=== PATIENT | female | born 1965 | race Caucasian/White ===

== ENCOUNTER 2017-05-30 16:11 | Emergency (ER) | payer OTHER, SELFPAY | END 2017-05-30 21:49 | disposition home or self-care (01) | PROVIDERS: Emergency Provider Emergency Medicine; Visit Provider Emergency Medicine | DX: K43.9 Ventral hernia without obstruction or gangrene (principal) | CPT/HCPCS: 74177; 80053; 82150; 83690; 84484; 85025; 96374; 99284; Q9967 ==

== ENCOUNTER → 2018-02-10 07:52 | Outpatient (CLI) | payer OTHER, SELFPAY ==
--- NOTE | 2018-02-10 07:53 | CT_ITS ---
CT abdomen wo con CLINICAL INDICATION: Right-sided abdominal wall hernia ITS.REASON: Abdominal wall hernia ORDERING PHYSICIAN: Glen Levin MD PATIENT AGE: 52 years COMPARISON: 05/30/2017 TECHNIQUE: Axial images obtained with sagittal and coronal reformats. All CT scans at the facility use one or more dose reduction, viz: automated exposure control, ma/kV adjustment per patient size (including targeted exams where dose is matched to indication, i.e. head), or iterative reconstruction technique. PROCEDURE: Oral Contrast: None IV Contrast: None . FINDINGS: 5 mm noncalcified nodule present in the right middle lobe unchanged. The liver, gallbladder, spleen, adrenal glands, pancreas, and kidneys have an unremarkable unenhanced CT appearance. There is a ventral abdominal wall hernia slightly to the right of midline. This is 4.7 cm superior to the umbilicus. The hernia contains fat. The hernia orifice measures 2 cm transverse and 2.4 cm cephalad to caudad. There is some minimal haziness of the fat within the hernia and within the mesenteric fat just deep to the hernia. No bowel evident within the hernia. The hernia sac measures 6.9 cm transverse and 4.2 cm AP and 6.6 cm cephalad to caudad. This is very slightly larger compared to the previous study. There is a tiny umbilical hernia containing fat. No other significant anomalies are evident. IMPRESSION: Right parasagittal ventral abdominal wall hernia as described above containing fat with some minimal edematous change of the fat. No bowel evident within the hernia.
== END ==
PROVIDERS: Family Provider Emergency Medicine; PCP Nurse Practitioner Family; Visit Provider Surgery
DX: K43.9 Ventral hernia without obstruction or gangrene (principal)
CPT/HCPCS: 74150

== ENCOUNTER → 2018-10-11 17:09 | Outpatient (CLI) | payer OTHER, SELFPAY ==
[2018-10-11 17:36] LABS: Basophils # 0.1 K/mm3 (0-0.2); Basophils % 0.6 % (0.1-2.0); Eosinophils # 0.4 K/mm3 (0.0-0.4); Eosinophils % 3.9 % (0.1-12.0); Hematocrit 41.5 % (37.0-47.0); Hemoglobin 13.8 g/dL (12.2-16.2); Lymphocytes % 33.6 % (10-50); Mean Corpuscular HGB Conc 33.3 g/dL (31.8-35.4); Mean Corpuscular Hemoglobin 30.9 pg (27.0-31.2); Mean Corpuscular Volume 92.8 fl (81-99); Mean Platelet Volume 7.9 fl (7.4-10.4); Monocytes # 0.4 K/mm3 (0.1-1.0); Monocytes % 4.4 % (1.7-9.3); Neutrophils # 5.2 K/mm3 (1.8-7.8); Neutrophils % 57.5 % (37.0-80.0); Platelet Count 365 K/mm3 (142-424); Red Blood Count 4.47 M/mm3 (4.20-5.40); Red Cell Distribution Width 13.4 % (11.5-17.5)
[2018-10-11 18:50] LABS: Alanine Aminotransferase 28 U/L (12-78); Albumin Level 3.4 gm/dL (3.4-5.0); Alkaline Phosphatase 63 U/L (46-116); Anion Gap 12.9 mEq/L (5-15); Aspartate Amino Transferase 14 U/L (15-37); Bilirubin,Total 0.4 mg/dL (0.2-1.0); Blood Urea Nitrogen 10 mg/dL (7-18); Calcium 8.5 mg/dL (8.5-10.1); Carbon Dioxide 27 mmol/L (21.0-32.0); Chloride 105 mmol/L (98-107); Chol/HDL Ratio 3.2 (1-3.5); Cholesterol 144 mg/dL (140-200); Creatinine,Serum 0.75 mg/dL (0.55-1.02); Estimated Glomerular Filt Rate 81 ml/min (>60); GFR (African American) 99 ML/MIN (>60); Globulin 3.4 gm/dl (1.3-3.2); Glucose 117 mg/dL (74-106); HDL Cholesterol 45 mg/dL (29-89); LDL Cholesterol 82 mg/dL (0-130); Potassium 3.9 mmoL/L (3.5-5.1); Sodium 141 mmol/L (136-145); Thyroid Stimulating Hormone 3.49 uIU/ml (0.358-3.740); Total Protein,Serum 6.8 gm/dL (6.4-8.2); Triglycerides 85 mg/dL (30-200); VLDL Cholesterol 17 mg/dL (0-40)
[2018-10-12 12:29] LABS: Hemoglobin A1C 5.8 % (0.0-7.0)
[2018-10-13 13:56] LABS: Vitamin D 25 Hydroxy 30.9 ng/mL (30.0-100.0)
== END ==
PROVIDERS: Visit Provider Nurse Practitioner Family
DX: R53.83 Other fatigue (principal); E03.9 Hypothyroidism, unspecified; R73.9 Hyperglycemia, unspecified
CPT/HCPCS: 80053; 80061; 82652; 83036; 84443; 85025

== ENCOUNTER → 2019-12-28 14:24 | Outpatient (CLI) | payer OTHER, SELFPAY ==
[2019-12-28 14:33] LABS: Basophils % 0.3 % (0.1-2.0); Eosinophils # 0.3 K/mm3 (0.0-0.4); Eosinophils % 2.4 % (0.1-12.0); Hematocrit 44.2 % (37.0-47.0); Hemoglobin 14.9 g/dL (12.2-16.2); Lymphocytes # 2.6 K/mm3 (0.7-4.5); Lymphocytes % 23.2 % (10-50); Mean Corpuscular HGB Conc 33.7 g/dL (31.8-35.4); Mean Platelet Volume 8.5 fl (7.4-10.4); Monocytes # 0.5 K/mm3 (0.1-1.0); Monocytes % 4.1 % (1.7-9.3); Neutrophils # 7.8 K/mm3 (1.8-7.8); Platelet Count 331 K/mm3 (142-424); Red Blood Count 4.65 M/mm3 (4.20-5.40); Red Cell Distribution Width 13.5 % (11.5-17.5); White Blood Count 11.2 K/mm3 (4.8-10.8)
[2019-12-28 14:59] LABS: Alanine Aminotransferase 18 U/L (12-78); Albumin/Globulin Ratio 1.1 (1.1-1.8); Alkaline Phosphatase 87 U/L (38-126); Anion Gap 13.6 mEq/L (5-15); Aspartate Amino Transferase 25 U/L (14-36); Bilirubin,Total 0.5 mg/dl (0.2-1.3); Blood Urea Nitrogen 9 mg/dl (7-17); Calcium 9.2 mg/dl (8.4-10.2); Carbon Dioxide 24 mmol/L (22.0-30.0); Chloride 108 mmol/L (98-107); Chol/HDL Ratio 3.5 (1-3.5); Cholesterol 177 mg/dl (140-200); Estimated Glomerular Filt Rate 88 ml/min (>60); GFR (African American) 106 ML/MIN (>60); Globulin 3.5 g/dL (1.3-3.2); Glucose 90 mg/dl (74-100); HDL Cholesterol 50 mg/dl (40-60); Potassium 4.6 mmoL/L (3.5-5.1); Sodium 141 mmol/L (136-145); Total Protein,Serum 7.5 g/dl (6.3-8.2); Triglycerides 138 mg/dl (30-150); VLDL Cholesterol 28 mg/dL (0-40)
[2019-12-28 15:11] LABS: Direct LDL Cholesterol 90.59 mg/dL (100-129)
[2019-12-28 15:16] LABS: T4 (Thyroxine) 8.6 ug/dl (5.53-11.0)
[2019-12-28 15:30] LABS: Thyroid Stimulating Hormone 4.24 uIU/mL (0.465-4.68)
== END ==
PROVIDERS: Visit Provider Nurse Practitioner Family
DX: R53.82 Chronic fatigue, unspecified (principal); M25.50 Pain in unspecified joint; J45.31 Mild persistent asthma with (acute) exacerbation
CPT/HCPCS: 80053; 80061; 82306; 84436; 84443; 85025

== ENCOUNTER → 2020-09-10 15:18 | Outpatient (CLI) | payer OTHER, SELFPAY ==
[2020-09-10 16:30] LABS: Erythrocyte Sedimentation Rate 16 mm/hr (0-30)
[2020-09-10 16:33] LABS: Basophils # 0.1 K/mm3 (0-0.2); Basophils % 0.8 % (0.1-2.0); Eosinophils # 0.3 K/mm3 (0.0-0.4); Eosinophils % 3.9 % (0.1-12.0); Hematocrit 42.1 % (37.0-47.0); Hemoglobin 13.9 g/dL (12.2-16.2); Lymphocytes # 2.8 K/mm3 (0.7-4.5); Lymphocytes % 34.6 % (10-50); Mean Corpuscular Hemoglobin 30.6 pg (27.0-31.2); Mean Corpuscular Volume 92.7 fl (81-99); Monocytes # 0.4 K/mm3 (0.1-1.0); Monocytes % 5.3 % (1.7-9.3); Neutrophils # 4.4 K/mm3 (1.8-7.8); Neutrophils % 55.4 % (37.0-80.0); Platelet Count 281 K/mm3 (142-424); Red Blood Count 4.54 M/mm3 (4.20-5.40); Red Cell Distribution Width 13.7 % (11.5-17.5)
[2020-09-10 17:11] LABS: Chloride 109 mmol/L (98-107); Potassium 4.6 mmoL/L (3.5-5.1); Sodium 139 mmol/L (136-145)
[2020-09-10 17:13] LABS: Alanine Aminotransferase 26 U/L (12-78); Aspartate Amino Transferase 33 U/L (14-36); Blood Urea Nitrogen 17 mg/dl (7-17); Estimated Glomerular Filt Rate 75 ml/min (>60); GFR (African American) 91 ML/MIN (>60)
[2020-09-10 17:14] LABS: Albumin Level 4.2 g/dl (3.5-5.0); Albumin/Globulin Ratio 1.4 (1.1-1.8); Alkaline Phosphatase 76 U/L (38-126); Anion Gap 9.6 mEq/L (5-15); Bilirubin,Total 0.4 mg/dl (0.2-1.3); Calcium 9.4 mg/dl (8.4-10.2); Carbon Dioxide 25 mmol/L (22.0-30.0); Chol/HDL Ratio 3.4 (1-3.5); Cholesterol 188 mg/dl (140-200); Globulin 2.9 g/dL (1.3-3.2); Glucose 102 mg/dl (74-100); HDL Cholesterol 56 mg/dl (40-60); Total Protein,Serum 7.1 g/dl (6.3-8.2); Triglycerides 145 mg/dl (30-150); VLDL Cholesterol 29 mg/dL (0-40)
[2020-09-10 17:25] LABS: Direct LDL Cholesterol 84.86 mg/dL (100-129)
[2020-09-10 17:32] LABS: 25-OH Vitamin D, Total 25.8 ng/mL (30-100); Free T4 (Free Thyroxine) 1.05 ng/dl (0.78-2.19)
[2020-09-10 17:45] LABS: Thyroid Stimulating Hormone 2.83 uIU/mL (0.465-4.68)
== END ==
PROVIDERS: Visit Provider Emergency Medicine
DX: R53.83 Other fatigue (principal); E55.9 Vitamin D deficiency, unspecified; Z79.899 Other long term (current) drug therapy
CPT/HCPCS: 36415; 80053; 80061; 82306; 84439; 84443; 85025; 85651

== ENCOUNTER → 2021-01-09 17:23 | Outpatient (CLI) | payer OTHER, SELFPAY ==
[2021-01-09 19:03] LABS: Basophils # 0.1 K/mm3 (0-0.2); Eosinophils # 0.5 K/mm3 (0.0-0.4); Hematocrit 39.4 % (37.0-47.0); Hemoglobin 12.9 g/dL (12.2-16.2); Lymphocytes # 2.5 K/mm3 (0.7-4.5); Lymphocytes % 32.9 % (10-50); Mean Corpuscular HGB Conc 32.8 g/dL (31.8-35.4); Mean Corpuscular Hemoglobin 29.9 pg (27.0-31.2); Mean Corpuscular Volume 91.1 fl (81-99); Mean Platelet Volume 8.7 fl (7.4-10.4); Monocytes # 0.4 K/mm3 (0.1-1.0); Monocytes % 5.3 % (1.7-9.3); Neutrophils # 4.1 K/mm3 (1.8-7.8); Neutrophils % 54.8 % (37.0-80.0); Platelet Count 334 K/mm3 (142-424); Red Blood Count 4.32 M/mm3 (4.20-5.40); Red Cell Distribution Width 13.9 % (11.5-17.5); White Blood Count 7.5 K/mm3 (4.8-10.8)
[2021-01-09 19:49] LABS: Erythrocyte Sedimentation Rate 29 mm/hr (0-30)
[2021-01-09 20:16] LABS: Hemoglobin A1C 5.7 % (4.0-6.0)
[2021-01-09 20:47] LABS: Alanine Aminotransferase 38 U/L (12-78); Albumin Level 3.9 g/dl (3.5-5.0); Albumin/Globulin Ratio 1.3 (1.1-1.8); Alkaline Phosphatase 76 U/L (38-126); Anion Gap 13.8 mEq/L (5-15); Aspartate Amino Transferase 35 U/L (14-36); Bilirubin,Total 0.5 mg/dl (0.2-1.3); Blood Urea Nitrogen 12 mg/dl (7-17); Calcium 8.6 mg/dl (8.4-10.2); Carbon Dioxide 24 mmol/L (22.0-30.0); Chloride 107 mmol/L (98-107); Estimated Glomerular Filt Rate 88 ml/min (>60); GFR (African American) 106 ML/MIN (>60); Globulin 3.1 g/dL (1.3-3.2); Glucose 83 mg/dl (74-100); Potassium 4.8 mmoL/L (3.5-5.1); Sodium 140 mmol/L (136-145)
[2021-01-09 20:52] LABS: C-Reactive Protein 4.4 mg/L (0-4)
[2021-01-09 21:37] LABS: Vitamin B12 804 pg/mL (239-931)
[2021-01-11 06:19] LABS: HIV Screen 4th Generation wRfx Non Reactive (Non Reactive)
[2021-01-11 09:15] LABS: LH 35.2 mIU/mL (.); Progesterone 0.3 ng/mL (.); RA Latex Turbid. <10.0 IU/mL (0.0-13.9); Testosterone,Total 13 ng/dL (4-50)
[2021-01-11 10:19] LABS: Hep A Ab, IgM Negative (Negative); Hepatitis B Core Antibody IgM Negative (Negative); Hepatitis B Surface Antigen Negative (Negative); Hepatitis C Antibody 0.1 s/co ratio (0.0-0.9)
[2021-01-11 15:13] LABS: Anti-Centromere B Antibodies <0.2 AI (0.0-0.9); Anti-DNA (DS) Ab Qn 1 IU/mL (0-9); Anti-Jo-1 <0.2 AI (0.0-0.9); Anti-Smith Antibody <0.2 AI (0.0-0.9); Antichromatin Antibodies <0.2 AI (0.0-0.9); Antiscleroderma-70 Antibodies <0.2 AI (0.0-0.9); RNP Antibodies <0.2 AI (0.0-0.9); Sjogren's Anti-SS-A <0.2 AI (0.0-0.9); Sjogren's Anti-SS-B <0.2 AI (0.0-0.9)
[2021-01-12 00:08] LABS: Anti-Cyclic Citrullinated Pept 5 units (0-19)
[2021-01-15 16:27] LABS: Estrogen 41 pg/mL (.)
== END ==
PROVIDERS: Visit Provider Physician Assistant
DX: G62.9 Polyneuropathy, unspecified (principal); M25.50 Pain in unspecified joint; R23.2 Flushing; R63.5 Abnormal weight gain; Z11.4 Encounter for screening for human immunodeficiency virus [HIV]; Z68.41 Body mass index [BMI] 40.0-44.9, adult
CPT/HCPCS: 80053; 80074; 82607; 82672; 83001; 83002; 83036; 84144; 84403; 84443; 85025; 85651; 86140; 86200; 86225; 86235; 86431; 86703; G0432

== ENCOUNTER 2021-01-31 18:46 | Observation (INO) | payer OTHER, SELFPAY ==
--- NOTE | 2021-01-31 18:41 | ECG_ITS ---
APPROVED REPORT Exam: Resting ECG HR:70 bpm ECG Measurements Heart Rate 70 AXES KS 158 P 53 QRSd 80 QRS 5 QT 412 T 18 QTc 444 Conclusion Normal sinus rhythm Normal ECG Electronically signed by : Seb Gerardo MD 02/01/2021 18:54:42
[2021-01-31 18:47] VITALS: BP 139/90; PULSE 77; RESP 18; TEMP 37.1; O2SAT 98; BMI 37.2
--- NOTE | 2021-01-31 19:04 | XR_ITS ---
PROCEDURE INFORMATION: Exam: XR Chest Exam date and time: 01/31/2021 7:04 PM Age: 55 years old Clinical indication: Sternal or substernal pain; Patient HX: Chest pain TECHNIQUE: Imaging protocol: XR of the chest. Views: 1 view. COMPARISON: CR CXR CHEST(2 VIEWS-NOT PORTABLE) 02/19/2017 2:37 PM FINDINGS: Lungs: Unremarkable. No consolidation. Pleural spaces: Unremarkable. No pleural effusion. No pneumothorax. Heart/Mediastinum: Unremarkable. No cardiomegaly. Bones/joints: Unremarkable. IMPRESSION: No acute findings.
--- NOTE | 2021-01-31 19:25 | HMH.EDGENADL ---
ED Disposition Clinical Impression: Near syncope Disposition: Admitted as Observation Condition on Discharge: Good Referrals: Gustabo Bowens MD [Primary Care Provider] - Time of Disposition: 19:31 - Critical Care Critical Care Time: No Attestation: On 01/31/21, the high probability of a clinically significant, sudden or life threatening deterioration of the following system(s) required my full and direct attention, intervention and personal management. The time I documented below is in addition to time spent performing reported procedures but includes the following listed in this critical care notation. Medical Decision Making - Medical Records Medical records reviewed: Yes: I reviewed the patient's medical records. - Roque Inquiry Pt receiving controlled substance: No Vital Signs: 01/31/21 18:47 Temperature 98.7 F Temperature Source Oral Pulse Rate [Radial] 77 Respiratory Rate 18 Blood Pressure [Right Arm] 139/90 Blood Pressure Mean [Right Arm] 106 Blood Pressure Position [Right Arm] Sitting 02 Sat by Pulse Oximetry 98 Oxygen Delivery Method Room Air - Lab Data Lab results reviewed: Yes: I reviewed the patient's lab results. Orders (Tests/Meds): ORDERS Category Date Time Status XR chest portable Stat Exams 01/31/21 19:04 Ordered BMP [Basic Metabolic Panel] Stat Lab 01/31/21 19:03 Ordered CBC w/Auto Diff [Complete Blood Count Auto Diff] Stat Lab 01/31/21 19:03 Ordered Troponin I Q3H Lab 01/31/21 22:15 Ordered Troponin I Q3H Lab 02/01/21 01:15 Ordered Troponin I Stat Lab 01/31/21 19:03 Ordered - ECG Data Tracing #1 I reviewed this ECG and interpreted as documented below: Normal sinus rhythm, 70 bpm, no ST elevation or depression, normal intervals, no ectopy. ECG initial impression date: 01/31/21 ECG initial impression time: 18:48 Medical Decision Narrative: 55yo F evaluated for near syncopal episodes. Patient's no acute distress on initial evaluation. Her EKG is unremarkable as reviewed above. Patient's history is concerning given the repetitive nature of her events evaluate the fact that they are worsening and happening more often. She has a strong family history for cardiac disease and also smoked heavily until recently. Laboratory studies are pending at this time but apparently the patient is a difficult stick. Chest x-ray is pending as well. I have already discussed admission with the patient given her symptoms. At this time the patient wishes to be a full code until she can further discuss it with her daughter. General Adult HPI - General Chief complaint: Dizziness Stated complaint: DIZZINESS Time Seen by Provider: 01/31/21 19:00 Mode of Arrival: Ambulatory Limitations: No Limitations Description of Symptoms (Recalled from ER Triage Doc. by RN): TO ED PER PVT CAR WITH C/O INTERMITTENT EPISODES OF DIZZINESS, NAUSEA, STARTING YESTERDAY. CHEST PRESSURE RADIATING INTO BACK, SOB, TODAY. PT STATES CALLED PCP AND TOLD TO COME TO ED FOR EVAL - History of Present Illness HPI narrative: 55yo F presents the emergency department secondary to multiple episodes of what sound like near syncope. Patient reports the symptoms began approximately 2 weeks ago. Patient has a few medical issues and states she does not take her medications as directed. She reports her near syncopal episodes are worsening and becoming more frequent. She states she had 1 earlier today. She reports her heart rate dropped into the 50s. When the event occurs, she is lightheaded, short of breath, diaphoretic and nauseated. She states she typically has headache behind her eyes, left more often than right. After the headache, the near syncopal event will occur 20 minutes to 2 hours later. Denies previous cardiac work-up. Patient reports a history of coronary artery disease in her family. Patient smoked a pack a day for several years until 90 days ago when she quit. - Related Data Home Medications
[2021-01-31 19:49] LABS: Chloride 108 mmol/L (98-107); Sodium 143 mmol/L (136-145)
[2021-01-31 19:50] LABS: Potassium 4.4 mmoL/L (3.5-5.1)
[2021-01-31 19:51] LABS: Basophils # 0.1 K/mm3 (0-0.2); Basophils % 0.8 % (0.1-2.0); Eosinophils # 0.3 K/mm3 (0.0-0.4); Eosinophils % 4.5 % (0.1-12.0); Hematocrit 41.3 % (37.0-47.0); Hemoglobin 13.8 g/dL (12.2-16.2); Lymphocytes # 2.9 K/mm3 (0.7-4.5); Lymphocytes % 41.3 % (10-50); Mean Corpuscular HGB Conc 33.4 g/dL (31.8-35.4); Mean Corpuscular Hemoglobin 31.2 pg (27.0-31.2); Mean Corpuscular Volume 93.6 fl (81-99); Mean Platelet Volume 7.7 fl (7.4-10.4); Monocytes # 0.4 K/mm3 (0.1-1.0); Monocytes % 6.4 % (1.7-9.3); Neutrophils # 3.3 K/mm3 (1.8-7.8); Platelet Count 325 K/mm3 (142-424); Red Blood Count 4.41 M/mm3 (4.20-5.40); Red Cell Distribution Width 13.5 % (11.5-17.5)
[2021-01-31 19:53] LABS: Anion Gap 13.4 mEq/L (5-15); Blood Urea Nitrogen 12 mg/dl (7-17); Calcium 9.3 mg/dl (8.4-10.2); Carbon Dioxide 26 mmol/L (22.0-30.0); Creatinine Clearance Estimated 143 mL/min (50-200); Estimated Glomerular Filt Rate 75 ml/min (>60); GFR (African American) 91 ML/MIN (>60); Glucose 102 mg/dl (74-100)
[2021-01-31 20:16] LABS: Troponin I < 0.01 ng/ml (0.00-0.034)
[2021-01-31 20:24] LABS: Thyroid Stimulating Hormone 4.66 uIU/mL (0.465-4.68)
[2021-01-31 20:25] LABS: Coronavirus 19, PCR Not Detected (NotDetected); Influenza A, PCR Not Detected (NotDetected); Influenza B, PCR Not Detected (NotDetected)
--- NOTE | 2021-01-31 21:04 | PC.NURSE ---
called for bed assignment, spoke with -household chores
--- NOTE | 2021-01-31 21:52 | HMH.HP ---
*Admission Date: 01/31/21 *Chief complaint: chest pain and dizzyness *History of present illness: TO ED PER [facility] CAR WITH C/O INTERMITTENT EPISODES OF DIZZINESS, NAUSEA, STARTING YESTERDAY. CHEST PRESSURE RADIATING INTO BACK, SOB, TODAY. PT STATES CALLED PCP AND TOLD TO COME TO ED FOR EVAL 55yo presents the emergency department secondary to multiple episodes of what sound like near syncope. Patient reports the symptoms began approximately 2 weeks ago. Patient has a few medical issues and states she does not take her medications as directed. She reports her near syncopal episodes are worsening and becoming more frequent. She states she had 1 earlier today. She reports her heart rate dropped into the 50s. When the event occurs, she is lightheaded, short of breath, diaphoretic and nauseated. She states she typically has headache behind her eyes, left more often than right. After the headache, the near syncopal event will occur 20 minutes to 2 hours later. Denies previous cardiac work-up. Patient reports a history of coronary artery disease in her family. Patient smoked a pack a day for several years until 90 days ago when she quit pt with episodes of chest pain and feeling of near syncope and feeling of arrhythmia which has increased in freq and will be admitted for eval [facility] History I have reviewed the patient's past medical history: Yes Medical History: Reports:: Asthma, Cancer, Depression, Hiatal Hernia Denies:: Diabetes Mellitus Type 1, Diabetes Mellitus Type 2, Internal Pacemaker, MRSA, Seizures *Have you ever received a pneumonia vaccine?: No *Have you received a flu vaccine this season?: No Other Medical History: Reports: Arthritis. Denies: Blood Transfusion Reaction Laterality Cases: Bilateral: Tonsillectomy Other Surgeries: Yes: Cancer Surgery, Colonoscopy, , Hysterectomy-Total (Radical hysterectomy), Hysterectomy-Partial. No: Pacemaker Amputation: No Fractures: No - *Social History Smoking Status: Former smoker Tobacco Type: cigarettes # Packs/Day (cigarettes): 1 Alcohol Intake: current Alcohol Intake Frequency:: holidays/special occasions only Substance Use Type: denies use *Occupational Status:: [facility] Household Members: none *Travel in the last 8 weeks: None - Psychiatric History Pschychiatric History:: Reports:: Depression Family Hx:: Heart Attack, Hypertension, Cancer Review of Systems - Review of Systems Review of systems:: pertinent systems reviewed and negative unless documented below - Constitutional Denies fever(s) - ENT Reports dizziness, Denies sore throat - *Cardiovascular Reports chest pain at rest, Reports lightheadedness, Reports rapid, pounding, or irregular heartbeat - *Respiratory Denies cough - *Gastrointestinal Denies abdominal pain - *Genitourinary Denies blood in urine - *Musculoskeletal Denies joint pain - Integumentary/Breasts Denies rash - *Neurologic Denies abnormal speech, Denies seizure-like activity, Denies localized weakness Meds Home Medications Medication Instructions Recorded Confirmed Type EPINEPHrine [Epinephrine] 0.3 mg IM ONCE PRN 10/27/18 01/31/21 History Albuterol Sulfate [Albuterol 2 puff IH Q6H PRN 01/31/21 01/31/21 History Sulfate Hfa] Celecoxib 400 mg PO DAILY 01/31/21 01/31/21 History Cholecalciferol (Vitamin D3) 125 mcg PO DAILY 01/31/21 01/31/21 History [Vitamin D3] Duloxetine HCl [Cymbalta] 60 mg PO DAILY 01/31/21 01/31/21 History Ergocalciferol (Vitamin D2) 50,000 unit PO QWEEK 01/31/21 01/31/21 History [Drisdol] Fluticasone Propionate 1 spray NOSTRIL-B DAILY 01/31/21 01/31/21 History Fluticasone/Vilanterol [Breo 1 inh PO DAILY 01/31/21 01/31/21 History Ellipta 100-25 Mcg INH] Levothyroxine Sodium [Synthroid 25 mcg PO DAILY 01/31/21 01/31/21 History 25mcg (0.025mg) tablet] Loratadine [Allergy Relief] 10 mg PO DAILY 01/31/21 01/31/21 History Montelukast Sodium [Singulair] 10 mg PO H
--- NOTE | 2021-01-31 21:57 | PC.NURSE ---
sent blood to lab
[2021-01-31 22:23] VITALS: BP 106/69; BP 125/75; PULSE 70; PULSE 82; RESP 16; RESP 18; TEMP 36.5; TEMP 36.7; O2SAT 95; O2SAT 98; BMI 41.9
[2021-01-31 22:32] LABS: Troponin I < 0.01 ng/ml (0.00-0.034)
--- NOTE | 2021-01-31 22:32 | PC.NURSE ---
patient up to floor via wheelchair.
[2021-01-31 22:46] VITALS: PULSE 60
[2021-02-01] VITALS (17 sets, daily range): BP systolic 97–133; BP diastolic 50–76; PULSE 50–69; RESP 16–20; TEMP 36.4–36.9; O2SAT 94–100; BMI 26.6; BMI 41.9
--- NOTE | 2021-02-01 | IR_ITS ---
APPROVED REPORT Patient Location: Inpatient PROCEDURES Left heart catheterization Left ventriculogram Selective coronary angiogram INDICATION Unstable angina , Strong family history of coronary disease with numerous associated risk factors, Informed consent was obtained prior to the procedure. COMPLICATIONS NONE Estimated Blood Loss: LESS THAN 10 ML TECHNIQUE One percent lidocaine used to anesthetize the right anterior aspect of the wrist. The right radial artery was accessed via the Seldinger technique. A 6 Albanian sheath was placed in the right radial artery. 2.5 mg of verapamil, 800 mcg of nitroglycerin, 1mg Lidocaine and 5000 U Heparin were given through the arterial sheath. The trap catheter was also used to perform left heart catheterization, left ventriculogram and selective coronary angiogram. At the end of the procedure the sheath was removed good hemostasis was achieved using Traclet band, patient was transferred to the postop holding area in stable condition. ANGIOGRAPHIC RESULTS The left main artery Normal The left anterior descending artery Normal The circumflex artery Normal The right coronary artery Dominant normal The BARAKAT ventriculogram reveals Slightly hyperdynamic at 70% The left ventricular end-diastolic pressure 20 mmHg IMPRESSION Normal coronary arteries Hyperdynamic ventricle consistent with diastolic dysfunction Elevated LVEDP consistent with diastolic dysfunction PLAN 1. Medical management for diastolic dysfunction 2. Evaluation of noncardiac symptoms Electronically signed by : Gopal Garcia MD 02/01/2021 13:43:05
[2021-02-01 02:02] LABS: Troponin I < 0.01 ng/ml (0.00-0.034)
--- NOTE | 2021-02-01 03:31 | PC.NURSE ---
Patient is alert and oriented x4. Patient was a new admission this shift. During home medication reconciliation patient stated that she has not taken her medication in 4 days. Her vital signs are WNL, call light within reach, will continue to monitor.
--- NOTE | 2021-02-01 07:15 | P.CONPHA_ITS ---
[facility] VTE Monitoring - Patient Demographics Admission date: 01/31/21 Report Date: 02/01/21 Time: 07:15 Allergies/Adverse Reactions: Patient Allergies codeine [CODEINE] Allergy (Unknown, Verified 01/09/21 14:39) Height: 1.75 m Weight: 81.647 kg Patient Problems: Current Active Problems Near syncope (Acute) Chest pain (Acute) Obesity (Acute) Hypothyroidism (Chronic) - VTE Risk Labs: VTE Related Lab Results Hgb 13.8 g/dL (12.2-16.2) 01/31/21 19:38 Hct 41.3 % (37.0-47.0) 01/31/21 19:38 Plt Count 325 K/mm3 (142-424) 01/31/21 19:38 BUN 12 mg/dl (7-17) 01/31/21 19:38 Creatinine 0.80 mg/dl (0.52-1.04) 01/31/21 19:38 Estimated Creat Clear 143 mL/min (50-200) 01/31/21 19:38 Was VTE Risk Assessment Performed: Yes VTE Score: 7 VTE Risk Level: Moderate Risk - Prophylaxis VTE Prophylaxis Ordered?: Yes Types of VTE Prophylaxis: IPCS Thigh High, Pharmacological Location of Applied Device: Bilateral Lower Extremeties Pharmacologic Type: Enoxaparin
--- NOTE | 2021-02-01 07:32 | HMH.PHAINT ---
MEDICATION RECONCILIATION COMPLETED ON PATIENT USING EXTERNAL FILL HISTORY FROM PHARMACY AND LIST FROM PCP OFFICE. -ROYER PADROND
--- NOTE | 2021-02-01 07:59 | HMH.CNCARD ---
History of Present Illness Consult date: 02/01/21 Requesting physician: Gustabo Bowens Consult reason: chest pain Chief complaint: chest pain, near syncope Additional Medical History:: 1. Tobacco use of at least 1 pack/day for 30 years 2. Family history of coronary artery disease in her mother who had heart attack in her early 50s 3. Obesity 4. Anxiety/depression 5. Remote history of ulcers History of present illness: 55-year-old white female admitted through the ER for recurrent episodes of near syncope which have been increasing in frequency over the last 3 to 4 weeks. Patient relates symptoms to begin with a headache followed by onset of mild chest discomfort that has been increasing in frequency and intensity. Yesterday the chest discomfort began to radiate to the back associated with severe diaphoresis and nausea. She denies any history of CVA, seizure activity or passing out. No new medications in the last 3 months. She did discontinue smoking approximately 90 days ago but relates that her mother had a strong history of coronary artery disease with her first heart attack in her early 50s. The patient has noted a marked decrease in her exercise capacity over the last 2 to 3 months to the point that she has discontinued a second job due to lack of energy. Patient was admitted for observation with troponins normal x3 and EKG sinus with no acute ST segment changes. Cardiology consulted for evaluation and recommendations. Preliminary echocardiogram today shows preserved ejection fraction with no significant valvular heart disease. Chest x-ray was unremarkable. [facility] History Medical History: Reports:: Asthma, Cancer, Depression, Hiatal Hernia Denies:: Diabetes Mellitus Type 1, Diabetes Mellitus Type 2, Internal Pacemaker, MRSA, Seizures *Have you ever received a pneumonia vaccine?: No *Have you received a flu vaccine this season?: No Other Medical History: Reports: Arthritis. Denies: Blood Transfusion Reaction Laterality Cases: Bilateral: Tonsillectomy Other Surgeries: Yes: Cancer Surgery, Cardiac Surgery, Colonoscopy, , Hernia Repair, Hysterectomy-Total, Hysterectomy-Partial. No: Pacemaker Amputation: No Fractures: No - *Social History Last grade of school completed: Some college Smoking Status: Former smoker Tobacco Type: cigarettes # Packs/Day (cigarettes): 1 #Yrs smoked (if former smoker): 30 Smoking End Date: 10/31/20 Alcohol Intake: current Alcohol Intake Frequency:: holidays/special occasions only Substance Use Type: denies use *Occupational Status:: employed [facility] Household Members: none *Travel in the last 8 weeks: None - Psychiatric History Pschychiatric History:: Reports:: Depression Family Hx:: Asthma, Cancer, Coronary Artery Disease, Heart Attack, Hypertension Meds Home Medications Medication Instructions Recorded Confirmed Type Albuterol Sulfate [Albuterol 2 puff IH Q6HP PRN 01/31/21 02/01/21 History Sulfate Hfa] Cholecalciferol (Vitamin D3) 125 mcg PO DAILY 01/31/21 01/31/21 History [Vitamin D3] Duloxetine HCl [Cymbalta] 60 mg PO DAILY 01/31/21 01/31/21 History Ergocalciferol (Vitamin D2) 50,000 unit PO WEEKLY 01/31/21 02/01/21 History [Drisdol] Fluticasone Propionate 1 spray NOSTRIL-B DAILY 01/31/21 01/31/21 History Fluticasone/Vilanterol [Breo 1 puff IH DAILY 01/31/21 02/01/21 History Ellipta 100-25 Mcg INH] Levothyroxine Sodium [Synthroid 25 mcg PO DAILY 01/31/21 01/31/21 History 25mcg (0.025mg) tablet] Loratadine [Allergy Relief] 10 mg PO DAILYP PRN 01/31/21 02/01/21 History Montelukast Sodium [Singulair] 10 mg PO HS 01/31/21 01/31/21 History Celecoxib [Celebrex 200mg cap] 200 mg PO DAILY 02/01/21 02/01/21 History Phentermine HCl 37.5 mg PO DAILY 02/01/21 02/01/21 History Allergies Allergy/AdvReac Type Severity Reaction Status Date / Time codeine [CODEINE] Allergy Unknown Verified 01/09/21 14:39 Exam Vital signs and Labs for Last 24 H
--- NOTE | 2021-02-01 08:00 | CA_ITS ---
APPROVED REPORT EXAM: Comprehensive 2D, Doppler, and color-flow Echocardiogram Dice Dealer: Roseann Hubbard RVT Ht: 5 ft 9 in Wt: 284lbs BSA: 2.40 BP: 139/90 mmHg Indications: CP,SYNCOPE,EX SMOKER 2D Dimensions LVOT 2.02 cm (M/F) 1.5-2.5 LA Volume 26.40 mL LA Volume Index 11.04 mL/m2 (M/F) 16-34 M-Mode Dimensions RVDd 1.38 cm (0.9-2.6) LA Diam 3.53 cm (1.9-4.0) LVDd 4.59 cm (3.5-5.7) Ao Diam 3.35 cm (2.0-3.7) LVDs 2.75 cm (3.5-5.7) IVSd 1.57 cm (0.6-1.1) PWd 0.73 cm (0.6-1.1) EF (Teich) 70.80% FS 40.10% EDV (Teich) 96.80 mL TAPSE 2.35 (<1.7) ESV (Teich) 28.30 mL LV Diastology E Decel Time 243.00 (160-240 msec) E/A Ratio 0.9 MED E' 6.90 (< 7 cm/sec) E'/MED E' Ratio 10.70 (>14) LAT E' 9.00 (<10 cm/sec) E/LAT E' Ratio 8.20 (>14) Aortic Valve AO Peak GR. 4.40 mmHg Mitral Valve MV E Max Ricardo. 74.00 (40-130 cm/s) MV A Velocity 80.00 (40-130 cm/s) E/A Ratio 0.92 MV Decel. Time 243.00 (160-240 ms) MV PHT 71.00 ms Pulmonary Valve PV Peak Velocity 53.00 (50-150 cm/s) Tricuspid Valve TR P. Velocity 149.00 cm/s RAP Estimate 10.00 mmHg RVSP 18.90 mmHg Left Ventricle Technically difficult study because of the patient fact in poor acoustic windows. Left atrium is mildly enlarged, left ventricle is normal size, visually estimated ejection fraction 50% with no obvious regional wall motion abnormality, Doppler evidence of impaired LV relaxation seen. Endocardial surfaces are poorly visualized. Right Ventricle Right atrium and right ventricle are relatively normal size and function. Aortic Valve Aortic valve is minimally thickened and fibrosed, there is no aortic stenosis or aortic insufficiency. Mitral Valve Mitral valve is grossly normal, there is trace mitral regurgitation. Tricuspid Valve Tricuspid valve grossly normal, there is trace tricuspid regurgitation, tricuspid regurgitation jet velocity is inadequate for calculation of the right ventricular systolic pressure. Pulmonic Valve Pulmonic valve is poorly visualized. Great Vessels Aortic root is normal size. Inferior vena cava is normal size with normal inspiratory collapse. Pericardium No significant pericardial effusion noted. Conclusion 1. Technically difficult study, endocardial surfaces are poorly visualized, visually estimated ejection fraction 50% with no segmental wall motion abnormality, Doppler evidence of impaired LV relaxation. 2. Trace mitral and tricuspid regurgitation. 3. No significant pericardial effusion noted, inferior vena cava is normal size with normal inspiratory collapse. Electronically signed by : Ghassan Hope MD 02/01/2021 18:04:35
--- NOTE | 2021-02-01 10:00 | PC.NURSE ---
Pt sleeping at this time
--- NOTE | 2021-02-01 13:45 | PC.NURSE ---
Report received from Mortgage Loan Specialist RN, Casie
--- NOTE | 2021-02-01 14:05 | PC.NURSE ---
Pt back to the floor from [employer] Guard via stretcher.
--- NOTE | 2021-02-01 15:57 | HMH.DCSUM ---
General - General Admission date:: 01/31/21 Discharge date: 02/01/21 HPI HPI: TO ED PER [facility]T CAR WITH C/O INTERMITTENT EPISODES OF DIZZINESS, NAUSEA, STARTING YESTERDAY. CHEST PRESSURE RADIATING INTO BACK, SOB, TODAY. PT STATES CALLED PCP AND TOLD TO COME TO ED FOR EVAL 55yo presents the emergency department secondary to multiple episodes of what sound like near syncope. Patient reports the symptoms began approximately 2 weeks ago. Patient has a few medical issues and states she does not take her medications as directed. She reports her near syncopal episodes are worsening and becoming more frequent. She states she had 1 earlier today. She reports her heart rate dropped into the 50s. When the event occurs, she is lightheaded, short of breath, diaphoretic and nauseated. She states she typically has headache behind her eyes, left more often than right. After the headache, the near syncopal event will occur 20 minutes to 2 hours later. Denies previous cardiac work-up. Patient reports a history of coronary artery disease in her family. Patient smoked a pack a day for several years until 90 days ago when she quit pt with episodes of chest pain and feeling of near syncope and feeling of arrhythmia which has increased in freq and will be admitted for eval Hospital Course Hospital Course: 55yo presents the emergency department secondary to multiple episodes of what sound like near syncope. Patient reports the symptoms began approximately 2 weeks ago. Patient has a few medical issues and states she does not take her medications as directed. She reports her near syncopal episodes are worsening and becoming more frequent. She states she had 1 earlier today. She reports her heart rate dropped into the 50s. When the event occurs, she is lightheaded, short of breath, diaphoretic and nauseated. She states she typically has headache behind her eyes, left more often than right. After the headache, the near syncopal event will occur 20 minutes to 2 hours later. Denies previous cardiac work-up. Patient reports a history of coronary artery disease in her family. Patient smoked a pack a day for several years until 90 days ago when she quit pt with episodes of chest pain and feeling of near syncope and feeling of arrhythmia which has increased in freq and will be admitted for eval 01/31/21 CXR: FINDINGS: Lungs: Unremarkable. No consolidation. Pleural spaces: Unremarkable. No pleural effusion. No pneumothorax. Heart/Mediastinum: Unremarkable. No cardiomegaly. Bones/joints: Unremarkable. IMPRESSION: No acute findings. Electronically signed by Nathaniel Barrientos MD [facility] shows: ANGIOGRAPHIC RESULTS The left main artery Normal The left anterior descending artery Normal The circumflex artery Normal The right coronary artery Dominant normal The BARAKAT ventriculogram reveals Slightly hyperdynamic at 70% The left ventricular end-diastolic pressure 20 mmHg IMPRESSION Normal coronary arteries Hyperdynamic ventricle consistent with diastolic dysfunction Elevated LVEDP consistent with diastolic dysfunction PLAN 1. Medical management for diastolic dysfunction 2. Evaluation of noncardiac symptoms Electronically signed by : Gopal Garcia MD 02/01/2021 13:43:05 Cardiology has seen and recommends: No evidence of coronary artery disease to account for cause of the patient's chest pain or near syncope. Diastolic dysfunction noted and will add low-dose Aldactone 25 mg Thursday, Thursday and Thursday. BMP in 1 week. Recommend 48-hour Holter monitor at discharge to evaluate for palpitations. Follow-up in our office in 2 weeks or sooner if needed Okay for discharge from cardiology standpoint Consider adding PPI therapy for possible GERD. PLAN: 1. We will discharge home today 2. Aldactone 25 mg p.o. Thursday, Thursday, Thursday 3. Protonix 40 mg p.o. daily 4. Follow-up with PCP in 1 week 5. Follow-up with cardiology in 2 weeks 6.
--- NOTE | 2021-02-01 17:47 | PC.NURSE ---
Pt resting quietly watching tv. Tolerated Cardiac Diet dinner tonight. Awaiting removal of Radial Band pressure device so pt can shower and have Holter Monitor placed and then discharged home tonight. No complaints, no pain. Denies any needs. Vitals have all been stable.
--- NOTE | 2021-02-01 18:30 | PC.NURSE ---
Sheath removed at this time. 2x2 gauze and coban applied to site. Tolerated well.
--- NOTE | 2021-02-01 18:39 | PC.NURSE ---
Air Removal from Radial Band: 1540-4ml 1555-3ml 1610-3ml 1625-3ml 1640-3ml 1655-3ml 1730-3ml 1830-4ml (device removed).
--- NOTE | 2021-02-01 19:05 | PC.NURSE ---
Resp Therapy at bs with Holter Monitor.
--- NOTE | 2021-02-01 19:53 | PC.NURSE ---
PT WAS D/C AT 1951
== END 2021-02-01 19:54 | disposition home or self-care (01) ==
LOC: ER 19:31 → 2ND 22:50
PROVIDERS: Internal Medicine; Admitting Provider Emergency Medicine; Emergency Provider Family Medicine; PCP Emergency Medicine; Visit Provider Emergency Medicine
DX: R07.9 Chest pain, unspecified (principal); R55 Syncope and collapse; E03.9 Hypothyroidism, unspecified; Z20.822 Contact with and (suspected) exposure to COVID-19; Z82.49 Family history of ischemic heart disease and other diseases of the circulatory system; Z79.899 Other long term (current) drug therapy; F17.210 Nicotine dependence, cigarettes, uncomplicated; E66.01 Morbid (severe) obesity due to excess calories; Z68.41 Body mass index [BMI] 40.0-44.9, adult; I20.8 Other forms of angina pectoris
CPT/HCPCS: 36415; 71045; 80048; 84443; 84484; 85025; 93005; 93225; 93306; 93458; 99152; 99282; C1725; C1760; C1769; G0378; J1644; Q9967; U0003

== ENCOUNTER → 2021-05-13 13:28 | Outpatient (CLI) | payer OTHER, SELFPAY | PROVIDERS: Visit Provider Emergency Medicine | DX: Z01.812 Encounter for preprocedural laboratory examination (principal); Z20.822 Contact with and (suspected) exposure to COVID-19 | CPT/HCPCS: C9803; U0003; U0005 ==

== ENCOUNTER → 2021-05-15 09:42 | Outpatient (CLI) | payer OTHER, SELFPAY ==
[2021-05-15 10:36] LABS: Anion Gap 6.9 mEq/L (5-15); Blood Urea Nitrogen 13 mg/dl (7-17); Calcium 9.2 mg/dl (8.4-10.2); Carbon Dioxide 32 mmol/L (22.0-30.0); Chloride 106 mmol/L (98-107); Estimated Glomerular Filt Rate 75 ml/min (>60); GFR (African American) 91 ML/MIN (>60); Glucose 112 mg/dl (74-100); Potassium 4.9 mmoL/L (3.5-5.1); Sodium 140 mmol/L (136-145)
== END ==
PROVIDERS: Visit Provider Nurse Practitioner Family
DX: R06.00 Dyspnea, unspecified (principal); R42 Dizziness and giddiness; E66.01 Morbid (severe) obesity due to excess calories; R94.31 Abnormal electrocardiogram [ECG] [EKG]; Z68.41 Body mass index [BMI] 40.0-44.9, adult
CPT/HCPCS: 36415; 80048

== ENCOUNTER → 2021-05-15 20:11 | Outpatient (CLI) | payer OTHER, SELFPAY | PROVIDERS: PCP Emergency Medicine; Visit Provider Emergency Medicine | DX: G47.30 Sleep apnea, unspecified (principal); R40.0 Somnolence; R06.83 Snoring; E66.9 Obesity, unspecified; Z68.41 Body mass index [BMI] 40.0-44.9, adult | CPT/HCPCS: 95810 ==

== ENCOUNTER 2021-06-18 10:02 | Day surgery (SDC) | payer OTHER, SELFPAY ==
--- NOTE | 2021-06-18 08:41 | CA_ITS ---
FINAL REPORT TECHNIQUE: Color Doppler, duplex Doppler and kong scale sonography of the bilateral neck arterial vasculature was performed. Velocities were measured in the carotid arteries. Stenosis evaluation based on the validated velocity criteria. CLINICAL HISTORY: .Vertigo, dizziness, bilateral bruit FINDINGS: The peak systolic velocity of the right common carotid artery is 88 cm/s. The peak systolic velocity of the right internal carotid artery is 70 cm/s and end diastolic velocity 31 cm/s. No significant plaque is present. The right external carotid artery is patent. The right vertebral artery is patent with antegrade flow. The peak systolic velocity of the left common carotid artery is 135 cm/s. The peak systolic velocity of the left internal carotid artery is 105 cm/s and end diastolic velocity 46 cm/s. No significant plaque is present. The left external carotid artery is patent.The left vertebral artery is patent with antegrade flow. IMPRESSION: Less than 50% bilateral carotid stenoses. Bilateral patent vertebral arteries with antegrade flow. If indicated, CTA or MRA could further evaluate. Reviewed, Interpreted and Dictated by Carlin Nina III, MD Transcribed by Josiah Durant Authenticated by Carlin Nina III, MD on 06/18/2021 09:50:04 AM [facility]
--- NOTE | 2021-06-18 09:21 | MR_ITS ---
FINAL REPORT CLINICAL HISTORY: vertigo WHEN WALKING PATIENTS GETS VERTIGO WITH NAUSEA. FINDINGS: Multiple projection images of the brain arterial vasculature were obtained without contrast. The raw data images were also reviewed. The distal internal carotid, distal vertebral and basilar arteries have an unremarkable appearance without evidence of significant stenosis or occlusion. The proximal anterior, middle and posterior cerebral arteries have an unremarkable appearance. There is no evidence of significant stenosis or major branch occlusion. No aneurysm or vascular malformation is identified. IMPRESSION: Unremarkable MR angiogram of the head. Reviewed, Interpreted and Dictated by Carlin Nina III, MD Transcribed by Josiah Durant Authenticated by Carlin Nina III, MD on 06/18/2021 10:30:47 AM [facility]
--- NOTE | 2021-06-18 09:21 | MR_ITS ---
FINAL REPORT CLINICAL HISTORY: vertigo. WHEN WALKING PATIENTS GETS VERTIGO WITH NAUSEA. PRIOR CAROTID DUPLEX 06-18-21 COMPARISON: Ultrasound carotid from the same day FINDINGS: Multiple projection images of the neck arterial vasculature were obtained without contrast. The raw data images were also reviewed. Motion on many of the images decreases exam sensitivity. The right common carotid artery has an unremarkable appearance without evidence of stenosis or occlusion. The right internal carotid artery has an unremarkable appearance without evidence of stenosis or occlusion. The right external carotid artery is patent. The right vertebral artery is patent without evidence of stenosis. The left common carotid artery has an unremarkable appearance without evidence of stenosis or occlusion. The left internal carotid artery is patent without evidence of stenosis or occlusion. The left external carotid artery is patent. The left vertebral artery is patent without evidence of stenosis. IMPRESSION: No evidence of stenosis or occlusion. Reviewed, Interpreted and Dictated by Carlin Nina III, MD Transcribed by Josiah Durant Authenticated by Carlin Nina III, MD on 06/18/2021 10:30:43 AM [facility]
[2021-06-18 10:39] VITALS: BMI 41.5
[2021-06-18 10:53] VITALS: BP 120/67; PULSE 87; RESP 20; O2SAT 96
[2021-06-18 11:22] VITALS: BP 118/74; PULSE 85; PULSE 87; RESP 19; O2SAT 100
--- NOTE | 2021-06-18 11:27 | HMH.LOOP ---
[facility] Loop Recorder Date: 06/18/21 Time: 11:27 Procedure Performed:: Implantation of loop recorder Indication:: Recurrent syncope Technique:: Patient was brought to the cardiac Sign Wirer. After informed consent obtained, 1% lidocaine with epinephrine was used to anesthetize the site along the left anterior aspect of the chest near the sternal border. Using the preformed scalpel, an incision was made and using the supplied preloaded apparatus, the loop recorder was placed subcutaneously without difficulty. Following the deployment of the loop recorder interrogation of the device was performed to ensure appropriate voltage was being detected (0.1 mV). Once this was verified, Steri-Strips were placed over the incision and the patient was prepped to discharge home. Patient tolerated the procedure well with minimal discomfort. Impression:: Successful implantation of loop recorder Serial Number:: [employer] Lux-[id number] [id number] Serial #[id number] Plan:: Routine postop care
== END 2021-06-18 11:36 | disposition home or self-care (01) ==
PROVIDERS: PCP Emergency Medicine; Visit Provider Internal Medicine
DX: R55 Syncope and collapse (principal); R00.0 Tachycardia, unspecified; R42 Dizziness and giddiness; Z79.899 Other long term (current) drug therapy
CPT/HCPCS: 33285; 70544; 70547; 93880

== ENCOUNTER → 2021-07-03 11:07 | Outpatient (CLI) | payer OTHER, SELFPAY ==
[2021-07-03 11:46] LABS: Basophils # 0.1 K/mm3 (0-0.2); Basophils % 1.1 % (0.1-2.0); Eosinophils # 0.3 K/mm3 (0.0-0.4); Eosinophils % 4.7 % (0.1-12.0); Hematocrit 43.7 % (37.0-47.0); Hemoglobin 13.9 g/dL (12.2-16.2); Lymphocytes # 2.8 K/mm3 (0.7-4.5); Lymphocytes % 50.4 % (10-50); Mean Corpuscular HGB Conc 31.9 g/dL (31.8-35.4); Mean Corpuscular Hemoglobin 29.9 pg (27.0-31.2); Mean Corpuscular Volume 93.8 fl (81-99); Mean Platelet Volume 7.2 fl (7.4-10.4); Monocytes # 0.3 K/mm3 (0.1-1.0); Monocytes % 5.3 % (1.7-9.3); Neutrophils # 2.1 K/mm3 (1.8-7.8); Neutrophils % 38.6 % (37.0-80.0); Platelet Count 333 K/mm3 (142-424); Red Blood Count 4.66 M/mm3 (4.20-5.40); Red Cell Distribution Width 14.7 % (11.5-17.5); White Blood Count 5.5 K/mm3 (4.8-10.8)
[2021-07-03 12:00] LABS: MANUAL DIFFERENTIAL MANUAL DIFFERENTIAL (MANUAL DIFF)
[2021-07-03 12:31] LABS: Alanine Aminotransferase 56 U/L (12-78); Albumin Level 4.2 g/dl (3.5-5.0); Alkaline Phosphatase 70 U/L (38-126); Anion Gap 8.1 mEq/L (5-15); Aspartate Amino Transferase 45 U/L (14-36); Bilirubin,Indirect 0.5 mg/dL (0.0-0.9); Bilirubin,Total 0.5 mg/dl (0.2-1.3); Bilirubin,Unconjugated 0.5 mg/dL (0.0-1.1); Blood Urea Nitrogen 15 mg/dl (7-17); Calcium 9.5 mg/dl (8.4-10.2); Carbon Dioxide 31 mmol/L (22.0-30.0); Chloride 107 mmol/L (98-107); Chol/HDL Ratio 4.1 (1-3.5); Cholesterol 213 mg/dl (140-200); Estimated Glomerular Filt Rate 65 ml/min (>60); GFR (African American) 79 ML/MIN (>60); Glucose 112 mg/dl (74-100); HDL Cholesterol 52 mg/dl (40-60); Potassium 5.1 mmoL/L (3.5-5.1); Sodium 141 mmol/L (136-145); Total Protein,Serum 7.4 g/dl (6.3-8.2); Triglycerides 162 mg/dl (30-150); VLDL Cholesterol 32 mg/dL (0-40)
[2021-07-03 12:44] LABS: Direct LDL Cholesterol 101.66 mg/dL (100-129)
[2021-07-03 12:47] LABS: Free Thyroxine Index 2.3 ug/dL (5.93-13.13); T4 (Thyroxine) 8.6 ug/dl (5.53-11.0); Triiodothryronine (T3) Uptake 27 % (23.5-40.5)
[2021-07-03 13:01] LABS: Thyroid Stimulating Hormone 4.91 uIU/mL (0.465-4.68)
[2021-07-03 19:26] LABS: Eosinophils % 2 % (0-3); Lymphocytes % 42 % (10-50); Monocytes % 8 % (2-9); Neutrophils % 48 % (42-76); Platelet Estimate Normal; Total Cells Counted 100
[2021-07-04 08:23] LABS: FSH 54.2 mIU/mL (.); Progesterone 0.2 ng/mL (.)
[2021-07-06 19:08] LABS: Estrogen 48 pg/mL (.)
== END ==
PROVIDERS: PCP Emergency Medicine; Visit Provider Physician Assistant
DX: R42 Dizziness and giddiness (principal); I10 Essential (primary) hypertension; R94.30 Abnormal result of cardiovascular function study, unspecified; E78.5 Hyperlipidemia, unspecified; E03.9 Hypothyroidism, unspecified; R53.83 Other fatigue; Z79.899 Other long term (current) drug therapy
CPT/HCPCS: 36415; 80048; 80061; 80076; 82672; 83001; 83002; 84144; 84436; 84443; 84479; 85007; 85025

== ENCOUNTER 2021-10-29 12:02 | Emergency (ER) | payer OTHER, SELFPAY ==
[2021-10-29 12:08] VITALS: BP 133/85; PULSE 78; RESP 18; TEMP 36.8; O2SAT 97; BMI 44.3
[2021-10-29 12:40] VITALS: BP 133/85; PULSE 78; RESP 18; TEMP 36.8; O2SAT 97; BMI 44.4
--- NOTE | 2021-10-29 13:13 | HMH.EDUTC ---
[facility] [place] Clinical Impression: Nerve pain Disposition: Home, Self-Care Condition on Discharge: Good Instructions: Neuropathic Pain, Methylprednisolone Additional Instructions: Continue wearing brace on hand/wrist Take medrol pack as prescribed Make appointment with your Family Doctor for further evaluation and treatment Return if needed Straight to ER if any life threatening symptoms Prescriptions: methylPREDNISolone [Medrol 4mg tab] 4 mg PO DIRECTED #21 tab Transmission Status: Received by [facility] Referrals: Gustabo Bowens MD [Primary Care Provider] - As needed Forms: Work/School Release Medical Decision Making - Roque Inquiry Pt receiving controlled substance: No Roque was queried for this patient: No Vital Signs: 10/29/21 12:08 10/29/21 12:40 10/29/21 13:22 Temperature 98.2 F 98.2 F 98.2 F Temperature Source Oral Oral Pulse Rate 78 Pulse Rate [Radial] 78 78 Respiratory Rate 18 18 18 Blood Pressure 133/85 Blood Pressure [Right Arm] 133/85 133/85 Blood Pressure Mean [Right Arm] 101 101 Blood Pressure Source [Right Arm] Automatic Cuff Blood Pressure Position [Right Arm] Sitting 02 Sat by Pulse Oximetry 97 97 Oxygen Delivery Method Room Air [facility] [place] - General Stated complaint: shoulder, hand, arm pain Time Seen by Provider: 10/29/21 12:30 Mode of Arrival: Ambulatory Source of Information: Patient Limitations: No Limitations Description of Symptoms (Recalled from Triage Doc. by RN): C/O LEFT ARM PAIN THAT RADIATES INTO HER HAND AND THUMB AND IS WORSE WHEN SHE MOVES HER ARM UP AND DOWN, STATES THE PAIN HAS BEEN GOING ON FOR A YEAR. DENIES CHEST PAIN. HEENT Symptoms (Recalled from RN notes): No Resp Symptoms (Recalled from RN notes): No Skin Symptoms (Recalled from RN notes): No MS Symptoms (Recalled from RN notes): Yes Functional Status (Recalled from RN notes): WNL - History of Present Illness Provider Complaint: Patient states that she has been havin pain in her left shoulder, upper arm and thumb for about a year States that pain/tingling worse when she raises her arm up and down States that she does alot of pulling and tugging at work and not sure if she may have tendonitis or something Denies fever, denies chest pain - Related Data Previous Rx's Medication Instructions Recorded spironolactone 25 mg tablet 25 mg PO DAILY #30 tab 05/15/21 albuterol sulfate 90 mcg/actuation 2 puff INHALATION Q6HP PRN #8.5 g 05/17/21 aerosol inhaler cholecalciferol (vitamin D3) 125 125 mcg PO DAILY #90 cap 05/17/21 mcg (5,000 unit) capsule ergocalciferol (vitamin D2) 1,250 50,000 unit PO WEEKLY #12 cap 05/17/21 mcg (50,000 unit) capsule celecoxib 200 mg capsule See Rx Instructions .ROUTE 06/13/21 .COMPLEX #60 capsule estradiol 0.1 mg/24 hr weekly 1 patch TRANSDERMA WEEKLY #4 each 07/29/21 transdermal patch levothyroxine 50 mcg capsule 50 mcg PO DAILY #90 cap 08/08/21 bupropion HCl 75 mg tablet See Rx Instructions .ROUTE 08/19/21 .COMPLEX #60 tab fluticasone propionate 50 See Rx Instructions .ROUTE 08/19/21 mcg/actuation nasal .COMPLEX #16 g spray,suspension duloxetine 60 mg capsule,delayed See Rx Instructions .ROUTE 09/17/21 release .COMPLEX #30 cap loratadine 10 mg tablet See Rx Instructions .ROUTE 09/17/21 .COMPLEX #30 tab metformin 500 mg tablet See Rx Instructions .ROUTE 09/17/21 .COMPLEX #60 tab epinephrine 0.3 mg/0.3 mL 0.3 mg IM Q5-15M PRN #2 each 09/24/21 injection, auto-injector hydroxyzine HCl 25 mg tablet 25 mg PO Q6H #20 tab 09/24/21 montelukast 10 mg tablet See Rx Instructions .ROUTE 10/21/21 .COMPLEX #30 tab methylPREDNISolone [Medrol 4mg 4 mg PO DIRECTED #21 tab 10/29/21 tab] Allergies Allergy/AdvReac Type Severity Reaction Status Date / Time codeine [CODEINE] Allergy Unknown Verified 07/29/21 09:12 - Worker's Comp Is this a Worker's Comp case?: No [facility] History - Hepatitis A Screen Attesta
[2021-10-29 13:22] VITALS: BP 133/85; PULSE 78; RESP 18; TEMP 36.8; O2SAT 97
== END 2021-10-29 13:28 | disposition home or self-care (01) ==
LOC: ER 12:08 → UTC 12:08
PROVIDERS: Emergency Provider Nurse Practitioner; PCP Emergency Medicine
DX: M79.2 Neuralgia and neuritis, unspecified; Z88.6 Allergy status to analgesic agent; E11.9 Type 2 diabetes mellitus without complications; J45.909 Unspecified asthma, uncomplicated
CPT/HCPCS: 99212; G0463

== ENCOUNTER → 2022-02-13 10:19 | Outpatient (CLI) | payer OTHER, SELFPAY ==
--- NOTE | 2022-02-13 10:19 | MM_ITS ---
PROCEDURE INFORMATION: Exam: US Left Breast, Complete MG Bilateral Diagnostic Breast Tomosynthesis Exam date and time: 02/13/2022 11:02 AM Age: 56 years old Clinical indication: Left breast palpable lump TECHNIQUE: Imaging protocol: Complete ultrasound of all four quadrants of the Left breast and the retroareolar regions, including ultrasound of the axilla when performed. Bilateral Diagnostic tomosynthesis and 2D mammography including computer-aided detection (CAD) when performed. Unilateral or bilateral exam. COMPARISON: MG MM DIG MAMM BI DX W/CAD 02/13/2022 10:15 AM FINDINGS: MAMMOGRAPHY: The breasts are heterogeneously dense, which may obscure small masses. Palpable abnormality in the left breast corresponds to a stellate mass measuring approximately 4.1 x 3.3 cm in the middle third of the upper outer quadrant. Few calcifications appear to be within the mass. There is associated architectural distortion present. Four dense abnormal left axillary lymph nodes are identified. The largest lymph node measures 2.7 cm. No suspicious findings in the right breast. ULTRASOUND: Sonographic images of the left breast including the retroareolar region, all 4 quadrants and the axilla demonstrates a broad area of abnormal acoustical shadowing in the 2 o'clock axis 6 cm from the nipple measuring 5 1 x 3.6 x 4.2 cm in dimension. Is difficult to identify the exact measurements of the underlying mass due to the acoustical shadowing and architectural distortion present. 0.4 cm cyst in the left lower outer quadrant. Evaluation of the left axilla demonstrates 2 abnormal lymph nodes, the larger of which measures 2.9 cm. . No architectural distortion or acoustical shadowing. No skin thickening or axillary adenopathy. IMPRESSION: Findings highly suggestive of primary breast carcinoma in the left upper outer quadrant with metastatic ipsilateral axillary adenopathy. Ultrasound-guided core biopsy of the palpable mass and ultrasound-guided fine needle aspiration of the dominant left axillary lymph node are recommended for further evaluation. No suspicious findings in the right breast ASSESSMENT: BI-RADS Category 5: Highly suggestive of malignancy
== END ==
PROVIDERS: PCP Emergency Medicine; Visit Provider Obstetrics & Gynecology
DX: N63.20 Unspecified lump in the left breast, unspecified quadrant (principal)
CPT/HCPCS: 76641; 77062; 77066; G0279

== ENCOUNTER → 2022-02-25 08:20 | Outpatient (CLI) | payer OTHER, SELFPAY ==
--- NOTE | 2022-02-25 | US_ITS ---
FINAL REPORT CLINICAL HISTORY: Left breast mass FINDINGS: ULTRASOUND-GUIDED LEFT BREAST CORE BIOPSY TECHNIQUE: Limited images were obtained to localize region of interest. The left breast was prepped in a routine sterile fashion and locally anesthetized with 1% lidocaine. Standard written informed consent was obtained. The biopsy needle was positioned within the outer periphery of the lesion. A total of 4 passes were made with a 18 gauge core biopsy needle. A biopsy marker clip was deployed in satisfactory position. Postbiopsy mammogram showed postbiopsy changes with clip in satisfactory position. Procedure was well tolerated . CONCLUSION: 1. Technically successful ultrasound guided core biopsy of left breast lesion as above. 2. 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 Pathology results are concordant with imaging findings. Authenticated and [facility]
--- NOTE | 2022-02-25 | US_ITS ---
FINAL REPORT CLINICAL HISTORY: .Dr. Arita -- Left axilla node core biopsy FINDINGS: ULTRASOUND-GUIDED LEFT AXILLARY LYMPH NODE CORE BIOPSY TECHNIQUE: Limited images were obtained to localize region of interest. The left axilla was prepped in a routine sterile fashion and locally anesthetized with 1% lidocaine. Standard written informed consent was obtained. The biopsy needle was positioned within the outer periphery of the lesion. A total of 3 passes were made with a 18 gauge core biopsy needle. Procedure was well tolerated . CONCLUSION: 1. Technically successful ultrasound guided core biopsy of left axillary lymph node Histopathology reveals findings of metastatic poorly differentiated adenocarcinoma. This is concordant with imaging findings given adenocarcinoma demonstrated on breast biopsy as well. Authenticated and [facility]
--- NOTE | 2022-02-25 09:38 | MM_ITS ---
FINAL REPORT CLINICAL HISTORY: clip placement, post biopsy FINDINGS: MAMMOGRAM LEFT TECHNIQUE: Standard digital 2-D views COMPARISON: 02-13-22 DENSITY: There are scattered areas of fibroglandular density FINDINGS: Post biopsy marker clip is noted to be in satisfactory position within the superior lateral periphery of the mass. Postbiopsy changes are noted. IMPRESSION: Biopsy marker clip in the superior lateral periphery of the mass RECOMMENDATION: Surgical consultation given findings of invasive poorly differentiated ductal carcinoma Authenticated and [facility]
== END ==
PROVIDERS: PCP Emergency Medicine; Visit Provider Obstetrics & Gynecology
DX: N63.21 Unspecified lump in the left breast, upper outer quadrant (principal); N63.32 Unspecified lump in axillary tail of the left breast
CPT/HCPCS: 10005; 19083; 76641; 77065

== ENCOUNTER → 2022-03-14 09:05 | Outpatient (CLI) | payer OTHER, SELFPAY ==
[2022-03-14 10:02] LABS: Basophils % 0.7 % (0.1-2.0); Eosinophils # 0.2 K/mm3 (0.0-0.4); Eosinophils % 3.9 % (0.1-12.0); Hematocrit 42.1 % (37.0-47.0); Hemoglobin 13.4 g/dL (12.2-16.2); Lymphocytes # 2.6 K/mm3 (0.7-4.5); Lymphocytes % 42.2 % (10-50); Mean Corpuscular HGB Conc 31.9 g/dL (31.8-35.4); Mean Corpuscular Hemoglobin 30.1 pg (27.0-31.2); Mean Corpuscular Volume 94.4 fl (81-99); Mean Platelet Volume 7.4 fl (7.4-10.4); Monocytes # 0.4 K/mm3 (0.1-1.0); Monocytes % 5.9 % (1.7-9.3); Neutrophils # 2.9 K/mm3 (1.8-7.8); Neutrophils % 47.2 % (37.0-80.0); Platelet Count 303 K/mm3 (142-424); Red Blood Count 4.46 M/mm3 (4.20-5.40); Red Cell Distribution Width 12.9 % (11.5-17.5); White Blood Count 6.1 K/mm3 (4.8-10.8)
[2022-03-14 10:16] LABS: Chloride 104 mmol/L (98-107); Potassium 4.6 mmoL/L (3.5-5.1); Sodium 141 mmol/L (136-145)
[2022-03-14 10:18] LABS: Blood Urea Nitrogen 14 mg/dl (7-17); Estimated Glomerular Filt Rate 75 ml/min (>60); GFR (African American) 90 ML/MIN (>60)
[2022-03-14 10:19] LABS: Alanine Aminotransferase 22 U/L (12-78); Albumin Level 4.1 g/dl (3.5-5.0); Albumin/Globulin Ratio 1.4 (1.1-1.8); Alkaline Phosphatase 77 U/L (38-126); Anion Gap 13.6 mEq/L (5-15); Aspartate Amino Transferase 30 U/L (14-36); Calcium 8.9 mg/dl (8.4-10.2); Carbon Dioxide 28 mmol/L (22.0-30.0); Globulin 2.9 g/dL (1.3-3.2); Glucose 118 mg/dl (74-100)
[2022-03-14 10:22] LABS: Bilirubin,Total 0.1 mg/dl (0.2-1.3)
[2022-03-15 08:14] LABS: Estradiol 28.7 pg/mL (.); LH 39.3 mIU/mL (.)
[2022-03-15 09:17] LABS: FSH 54.6 mIU/mL (.)
== END ==
PROVIDERS: PCP Emergency Medicine; Visit Provider Internal Medicine Hematology & Oncology
DX: C50.419 Malignant neoplasm of upper-outer quadrant of unspecified female breast (principal)
CPT/HCPCS: 36415; 80053; 82670; 83001; 83002; 85025

== ENCOUNTER → 2022-03-17 09:20 | Outpatient (CLI) | payer OTHER, SELFPAY ==
--- NOTE | 2022-03-17 09:24 | CT_ITS ---
FINAL REPORT CLINICAL HISTORY: MALIGNANT NEOPLASM UPPER OUTER QUAD OF BREAST. dx with breast cancer 3 weeks ago. hx of cervical FINDINGS: Axial CT images of the chest were obtained with contrast. Coronal reformatted images were also obtained. This study was performed with techniques to keep radiation doses as low as reasonably achievable, (ALARA). Individualized dose reduction techniques using automated exposure control or adjustment of mA and/or KV according to the patient's size were employed. 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 There is no evidence of mediastinal or hilar mass or adenopathy. There is asymmetric soft tissue in the left breast worrisome for a mass. There are several large left axillary nodes worrisome for metastatic adenopathy. There are several less than 5 mm bilateral pulmonary nodules which are nonspecific. IMPRESSION: Asymmetric soft tissue in the left breast worrisome for a mass with several large left axillary nodes worrisome for metastatic adenopathy. Several less than 5 mm bilateral pulmonary nodules, nonspecific. Follow-up chest CT in 6 months is recommended. Reviewed, Interpreted and Dictated by Carlin Nina III, MD Transcribed by Fatmata Tran Authenticated and . [facility]
--- NOTE | 2022-03-17 09:24 | CT_ITS ---
FINAL REPORT CLINICAL HISTORY: recent breast cancer dx. new find in lymph nodes per patient. hx of cervical cancer. COMPARISON: 03/17/2019 FINDINGS: CT OF THE ABDOMEN AND PELVIS WITH CONTRAST Axial CT images of the abdomen and pelvis were obtained after the administration of oral and iv contrast. Coronal reformatted images were also obtained and reviewed.This study was performed with techniques to keep radiation doses as low as reasonably achievable (ALARA). Individualized dose reduction techniques using automated exposure control or adjustment of mA and/or kV according to the patient's size were employed. Abdomen: The liver has an unremarkable appearance, without evidence of mass or biliary ductal dilatation. The spleen is unremarkable. No adrenal mass is present. The pancreas has an unremarkable appearance. The kidneys are normal, without evidence of mass or hydronephrosis. The aorta is normal in caliber. There is no free fluid or adenopathy. No mass or abnormal fluid collection is seen. Pelvis: The appendix is normal. The patient is status post hysterectomy. The urinary bladder is unremarkable. No inflammatory process is seen. There is no evidence of mass or adenopathy. There is no evidence of bowel obstruction. IMPRESSION: No evidence of acute intra-abdominal process. Reviewed, Interpreted and Dictated by Carlin Nina III, MD Transcribed by Fatmata Tran Authenticated and [facility]
== END ==
PROVIDERS: PCP Emergency Medicine; Visit Provider Internal Medicine Hematology & Oncology
DX: C50.412 Malignant neoplasm of upper-outer quadrant of left female breast (principal); Z17.0 Estrogen receptor positive status [ER+]
CPT/HCPCS: 71260; 74177; Q9967

== ENCOUNTER → 2022-03-19 08:03 | Outpatient (CLI) | payer OTHER, SELFPAY ==
--- NOTE | 2022-03-19 | CA_ITS ---
APPROVED REPORT EXAM: Comprehensive 2D, Doppler, and color-flow Echocardiogram Top Tile Decorator: Susy Camacho, RCS, RVS Ht: 5 ft 9 in Wt: 291lbs BSA: 2.42 BP: 125/85 mmHg Indications: HTN, Diastolic dysfunction, Hx- Loop recoeder for near syncopal episodes, Breast Cancer- Upcoming Chemotherapy, Obesity 2D Dimensions Aortic Root 3.33 cm LA Volume 34.40 mL Left Atrium 3.35 cm LA Volume Index 14.20 mL/m2 (M/F) 16-34 LVOT 1.99 cm (M/F) 1.5-2.5 M-Mode Dimensions RVDd 3.10 cm (0.9-2.6) LA Diam 3.71 cm (1.9-4.0) LVDd 5.07 cm (3.5-5.7) Ao Diam 3.13 cm (2.0-3.7) LVDs 3.22 cm (3.5-5.7) IVSd 1.17 cm (0.6-1.1) PWd 1.09 cm (0.6-1.1) EF (Teich) 65.90% EPSs 0.48 cm FS 36.50% EDV (Teich) 122.10 mL TAPSE 1.70 (<1.7) ESV (Teich) 41.60 mL LV Diastology E Decel Time 227.00 (160-240 msec) E/A Ratio 0.80 MED E' 5.00 (< 7 cm/sec) MED A' 8.60 cm/s E'/MED E' Ratio 11.04 (>14) LAT E' 6.80 (<10 cm/sec) LAT A' 7.70 cm/s E/LAT E' Ratio 8.12 (>14) Aortic Valve LVOT Max 94.00 (70-110 cm/s) LVOT VTI 19.02 cm AoV Peak Ricardo. 105.00 (50-130 cm/s) AO Peak GR. 4.40 mmHg AO Mean GR. 2.20 (<5 mmHg) AO VTI 20.79 (18-25 cm) RADHA (VTI) 2.85 (2.5-4.5 cm2) Mitral Valve MV A Velocity 69.00 (40-130 cm/s) E/A Ratio 0.80 MV Decel. Time 227.00 (160-240 ms) MV Mean Gr. 0.90 (<2mmHg) MV PHT 67.00 ms Pulmonary Valve PV Peak Velocity 77.00 (50-150 cm/s) Tricuspid Valve TR P. Velocity 197.00 cm/s Left Ventricle Left atrium is mildly enlarged, left ventricle is normal size mild concentric left ventricular hypertrophy, estimated ejection fraction 55% with no regional wall motion abnormality, grade 1 diastolic dysfunction seen without tissue Doppler evidence of raise left atrial pressure. Right Ventricle Right atrium and right ventricle are mildly enlarged with normal contractility. Aortic Valve Aortic valve is minimally thickened and fibrosed there is no aortic stenosis aortic insufficiency. Mitral Valve Mitral valve is grossly normal. There is trace mitral regurgitation. Tricuspid Valve Tricuspid valve grossly normal, there is trace tricuspid regurgitation, tricuspid regurgitation jet velocity is inadequate for calculation of the right ventricular systolic pressure. Pulmonic Valve Pulmonic valve is poorly visualized. Great Vessels Aortic root is normal size. Inferior vena cava is normal size with normal inspiratory collapse. Pericardium No significant pericardial effusion noted. Conclusion 1. Mild biatrial enlargement, normal left ventricular size, mild concentric left ventricular hypertrophy, estimated ejection fraction 55% with no regional wall motion abnormality, grade 1 diastolic dysfunction seen without tissue Doppler evidence of raise left atrial pressure. 2. Mildly enlarged right ventricle with normal contractility. 3. Trace mitral and tricuspid regurgitation. 4. No significant pericardial effusion noted. 5. Inferior vena cava is normal size with normal inspiratory collapse Electronically signed by : Ghassan Hope MD 03/20/2022 06:30:13
--- NOTE | 2022-03-19 08:13 | MR_ITS ---
FINAL REPORT CLINICAL HISTORY: PRIMARY MALIGNANT NEOPLASM OF BREAST, recent diagnosis of breast cancer, headaches 26ml prohance injected FINDINGS: Multiplanar MR imaging of the brain was performed without and with contrast. There is no evidence of intracranial hemorrhage or mass. No abnormal extra-axial fluid collection is seen. The ventricular size is within normal limits. There is no evidence of shift of the midline structures. The posterior fossa and brainstem have an unremarkable appearance. No area of abnormal restricted diffusion is identified. No abnormal contrast enhancement is seen. Normal major vessel vascular flow voids are noted. There is mucosal thickening in the sinuses. IMPRESSION: No acute intracranial abnormality identified. Reviewed, Interpreted and Dictated by Carlin Nina III, MD Transcribed by Josiah Durant Authenticated and [facility][1]
== END ==
PROVIDERS: PCP Emergency Medicine; Visit Provider Internal Medicine Hematology & Oncology
DX: C50.412 Malignant neoplasm of upper-outer quadrant of left female breast (principal)
CPT/HCPCS: 70553; 93306; A9576

== ENCOUNTER → 2022-03-21 09:40 | Outpatient (CLI) | payer OTHER, SELFPAY ==
--- NOTE | 2022-03-21 09:48 | NM_ITS ---
FINAL REPORT CLINICAL HISTORY: DISORDERS OF BONE, H/O CERVICLE CANCER 2012 COMPARISON: CT of the chest, abdomen, and pelvis dated March 17 FINDINGS: Multiple projection images of the axial and appendicular skeleton were obtained after the intravenous injection of 25.3 mCi technetium 99m MDP. The correlation was made with the CT of the chest, abdomen, and pelvis from March 2022. There is increased tracer activity in the shoulders, knees, and ankles consistent with degenerative change. There are foci of increased tracer activity in the cervical and thoracic spine favored to represent degenerative change. No other abnormality is identified. IMPRESSION: Scattered foci of increased tracer activity favored to represent degenerative change. No convincing evidence of metastatic disease. Reviewed, Interpreted and Dictated by Carlin Nina III, MD Transcribed by Miranda Grant Authenticated and [facility]
== END ==
PROVIDERS: PCP Emergency Medicine; Visit Provider Internal Medicine Hematology & Oncology
DX: M89.8X9 Other specified disorders of bone, unspecified site (principal)
CPT/HCPCS: 78306; A9503

== ENCOUNTER 2022-04-01 09:06 | Outpatient (CLI) | payer OTHER, SELFPAY ==
[2022-04-01 09:15] VITALS: BMI 43.0
[2022-04-01 09:37] LABS: Basophils % 0.8 % (0.1-2.0); Eosinophils # 0.2 K/mm3 (0.0-0.4); Eosinophils % 3.1 % (0.1-12.0); Hematocrit 39.1 % (37.0-47.0); Hemoglobin 13.1 g/dL (12.2-16.2); Lymphocytes # 1.2 K/mm3 (0.7-4.5); Lymphocytes % 24.8 % (10-50); Mean Corpuscular HGB Conc 33.6 g/dL (31.8-35.4); Mean Corpuscular Hemoglobin 31.2 pg (27.0-31.2); Mean Corpuscular Volume 92.8 fl (81-99); Mean Platelet Volume 7.9 fl (7.4-10.4); Monocytes # 0.1 K/mm3 (0.1-1.0); Monocytes % 1.3 % (1.7-9.3); Neutrophils # 3.5 K/mm3 (1.8-7.8); Platelet Count 231 K/mm3 (142-424); Red Blood Count 4.22 M/mm3 (4.20-5.40); Red Cell Distribution Width 13.3 % (11.5-17.5)
[2022-04-01 09:40] LABS: Chloride 103 mmol/L (98-107); Potassium 3.9 mmoL/L (3.5-5.1); Sodium 141 mmol/L (136-145)
[2022-04-01 09:42] LABS: Alanine Aminotransferase 29 U/L (12-78); Aspartate Amino Transferase 30 U/L (14-36); Bilirubin,Total 0.9 mg/dl (0.2-1.3); Blood Urea Nitrogen 14 mg/dl (7-17); Creatinine Clearance Estimated 84 mL/min (50-200); Estimated Glomerular Filt Rate 75 ml/min (>60); GFR (African American) 90 ML/MIN (>60)
[2022-04-01 09:43] LABS: Albumin Level 3.9 g/dl (3.5-5.0); Albumin/Globulin Ratio 1.3 (1.1-1.8); Alkaline Phosphatase 103 U/L (38-126); Anion Gap 13.9 mEq/L (5-15); Calcium 8.4 mg/dl (8.4-10.2); Carbon Dioxide 28 mmol/L (22.0-30.0); Glucose 100 mg/dl (74-100); Total Protein,Serum 6.9 g/dl (6.3-8.2)
== END 2022-04-01 09:20 | disposition home or self-care (01) ==
LOC: INF 09:07
PROVIDERS: PCP Emergency Medicine; Visit Provider Internal Medicine Hematology & Oncology
DX: C50.412 Malignant neoplasm of upper-outer quadrant of left female breast (principal); Z45.2 Encounter for adjustment and management of vascular access device
CPT/HCPCS: 36591; 80053; 85025; J1642

== ENCOUNTER 2022-04-09 13:49 | Outpatient (CLI) | payer OTHER, SELFPAY ==
[2022-04-09 13:55] VITALS: BMI 43.1
[2022-04-09 14:30] LABS: Chloride 106 mmol/L (98-107); Sodium 140 mmol/L (136-145)
[2022-04-09 14:32] LABS: Blood Urea Nitrogen 18 mg/dl (7-17); Creatinine Clearance Estimated 96 mL/min (50-200); Estimated Glomerular Filt Rate 87 ml/min (>60); GFR (African American) 106 ML/MIN (>60)
[2022-04-09 14:33] LABS: Alanine Aminotransferase 24 U/L (12-78); Albumin Level 3.6 g/dl (3.5-5.0); Albumin/Globulin Ratio 1.4 (1.1-1.8); Alkaline Phosphatase 82 U/L (38-126); Aspartate Amino Transferase 28 U/L (14-36); Bilirubin,Total < 0.1 mg/dl (0.2-1.3); Calcium 8.5 mg/dl (8.4-10.2); Carbon Dioxide 27 mmol/L (22.0-30.0); Globulin 2.6 g/dL (1.3-3.2); Glucose 98 mg/dl (74-100); Total Protein,Serum 6.2 g/dl (6.3-8.2)
[2022-04-09 14:34] LABS: Basophils # 0.1 K/mm3 (0-0.2); Basophils % 1.2 % (0.1-2.0); Eosinophils % 0.5 % (0.1-12.0); Hematocrit 36.9 % (37.0-47.0); Hemoglobin 12.2 g/dL (12.2-16.2); Lymphocytes # 2.5 K/mm3 (0.7-4.5); Lymphocytes % 30.4 % (10-50); Mean Corpuscular HGB Conc 33.2 g/dL (31.8-35.4); Mean Corpuscular Hemoglobin 30.9 pg (27.0-31.2); Mean Platelet Volume 7.8 fl (7.4-10.4); Monocytes # 0.6 K/mm3 (0.1-1.0); Monocytes % 7.1 % (1.7-9.3); Neutrophils % 60.9 % (37.0-80.0); Platelet Count 339 K/mm3 (142-424); Red Blood Count 3.96 M/mm3 (4.20-5.40); Red Cell Distribution Width 13.8 % (11.5-17.5); White Blood Count 8.2 K/mm3 (4.8-10.8)
== END 2022-04-09 14:10 | disposition home or self-care (01) ==
LOC: INF 13:50
PROVIDERS: PCP Emergency Medicine; Visit Provider Internal Medicine Hematology & Oncology
DX: C50.419 Malignant neoplasm of upper-outer quadrant of unspecified female breast (principal)
CPT/HCPCS: 36591; 80053; 85025; J1642

== ENCOUNTER 2022-04-22 09:10 | Outpatient (CLI) | payer OTHER, SELFPAY ==
[2022-04-22 09:14] VITALS: BMI 43.8
[2022-04-22 09:34] LABS: Basophils # 0.1 K/mm3 (0-0.2); Basophils % 0.8 % (0.1-2.0); Eosinophils % 0.3 % (0.1-12.0); Hematocrit 35.8 % (37.0-47.0); Lymphocytes # 1.5 K/mm3 (0.7-4.5); Lymphocytes % 26.5 % (10-50); Mean Corpuscular HGB Conc 33.5 g/dL (31.8-35.4); Mean Corpuscular Hemoglobin 31.3 pg (27.0-31.2); Mean Corpuscular Volume 93.6 fl (81-99); Mean Platelet Volume 8.3 fl (7.4-10.4); Monocytes # 0.4 K/mm3 (0.1-1.0); Monocytes % 6.4 % (1.7-9.3); Neutrophils # 3.8 K/mm3 (1.8-7.8); Platelet Count 266 K/mm3 (142-424); Red Blood Count 3.82 M/mm3 (4.20-5.40); Red Cell Distribution Width 14.5 % (11.5-17.5); White Blood Count 5.8 K/mm3 (4.8-10.8)
[2022-04-22 09:40] LABS: Chloride 105 mmol/L (98-107); Potassium 3.9 mmoL/L (3.5-5.1); Sodium 140 mmol/L (136-145)
[2022-04-22 09:43] LABS: Alanine Aminotransferase 35 U/L (12-78); Albumin Level 3.6 g/dl (3.5-5.0); Albumin/Globulin Ratio 1.3 (1.1-1.8); Alkaline Phosphatase 89 U/L (38-126); Anion Gap 10.9 mEq/L (5-15); Aspartate Amino Transferase 38 U/L (14-36); Bilirubin,Total 0.2 mg/dl (0.2-1.3); Blood Urea Nitrogen 8 mg/dl (7-17); Carbon Dioxide 28 mmol/L (22.0-30.0); Creatinine Clearance Estimated 96 mL/min (50-200); Estimated Glomerular Filt Rate 87 ml/min (>60); GFR (African American) 106 ML/MIN (>60); Globulin 2.8 g/dL (1.3-3.2); Total Protein,Serum 6.4 g/dl (6.3-8.2)
[2022-04-22 09:44] LABS: Calcium 8.8 mg/dl (8.4-10.2); Glucose 123 mg/dl (74-100)
[2022-04-22 10:15] LABS: Thyroid Stimulating Hormone 1.98 uIU/mL (0.465-4.68)
[2022-04-22 10:17] LABS: 25-OH Vitamin D, Total 55.7 ng/mL (30-100)
== END 2022-04-22 09:29 | disposition home or self-care (01) ==
LOC: INF 09:11
PROVIDERS: PCP Emergency Medicine; Visit Provider Internal Medicine Hematology & Oncology
DX: C50.419 Malignant neoplasm of upper-outer quadrant of unspecified female breast (principal); E55.9 Vitamin D deficiency, unspecified; Z45.2 Encounter for adjustment and management of vascular access device
CPT/HCPCS: 36591; 80053; 82306; 84443; 85025; J1642

== ENCOUNTER 2022-05-02 07:57 | Emergency (ER) | payer OTHER, SELFPAY ==
[2022-05-02 07:57] VITALS: BP 126/56; PULSE 77; RESP 16; TEMP 36.8; O2SAT 96; BMI 44.3
--- NOTE | 2022-05-02 08:14 | CT_ITS ---
FINAL REPORT TECHNIQUE: Postcontrast axial CT imaging was performed through the orbits. Coronal reconstruction images were performed. This study was performed with techniques to keep radiation doses as low as reasonably achievable (ALARA). Individualized dose reduction techniques using automated exposure control or adjustment of mA and/or kV according to the patient's size were employed. Multiple axial CT sections were performed through the temporal bones appear coronal reconstruction images were performed.This study was performed with techniques to keep radiation doses as low as reasonably achievable (ALARA). Individualized dose reduction techniques using automated exposure control or adjustment of mA and/or kV according to the patient's size were employed. CLINICAL HISTORY: Left face and eye pain and swelling. FINDINGS: CT ORBITS WITH CONTRAST The orbits and globes are intact. The left lacrimal gland appears somewhat enlarged with a 3 mm calcification within it. There is adjacent fluid which may represent a possible abscess. Findings are consistent with dacryoadenitis. There is soft tissue swelling in the left lateral anterior orbit worrisome for cellulitis. The extraocular muscles are intact. IMPRESSION: Enlargement of the lacrimal gland with a 3 mm calcification may represent dacryoadenitis. Soft tissue swelling of the left lateral anterior orbit worrisome for cellulitis. Reviewed, Interpreted and Dictated by Carlin Nina III, MD Transcribed by Fatmata Tran Authenticated and [facility]
--- NOTE | 2022-05-02 08:15 | HMH.EDGENADL ---
Discharge Plan Disposition Chief Complaint: Eye Problems Prescriptions Prescriptions: No Action spironolactone 25 mg tablet 25 mg PO DAILY Qty: 30 11RF furosemide [Lasix] 20 mg tablet 20 mg PO DAILY Qty: 30 5RF fluticasone propionate 50 mcg/actuation spray,suspension See Rx Instructions .ROUTE .COMPLEX Qty: 16 0RF Dose Instruction: USE 1 SPRAY IN EACH NOSTRIL ONCE A DAY Rx Instructions: USE 1 SPRAY IN EACH NOSTRIL ONCE A DAY budesonide-formoterol [Symbicort] 160-4.5 mcg/actuation HFA aerosol inhaler 1 puff inhalation QID PRN (Reason: shortness of breath or wheezing) 90 Days Qty: 10.2 3RF epinephrine 0.3 mg/0.3 mL auto-injector 0.3 mg IM Q5-15M PRN (Reason: anaphylaxis) Qty: 2 1RF Rx Instructions: do not exceed 3 doses per episode celecoxib 200 mg capsule See Rx Instructions .ROUTE .COMPLEX Qty: 60 3RF Dose Instruction: TAKE 2 CAPSULES BY MOUTH ONCE A DAY Rx Instructions: TAKE 2 CAPSULES BY MOUTH ONCE A DAY cholecalciferol (vitamin D3) 125 mcg (5,000 unit) capsule See Rx Instructions .ROUTE .COMPLEX Qty: 30 2RF Dose Instruction: TAKE ONE CAPSULE BY MOUTH ONCE A DAY FOR SUPPLEMENT Rx Instructions: TAKE ONE CAPSULE BY MOUTH ONCE A DAY FOR SUPPLEMENT ergocalciferol (vitamin D2) 1,250 mcg (50,000 unit) capsule See Rx Instructions .ROUTE .COMPLEX Qty: 4 2RF Dose Instruction: TAKE ONE CAPSULE BY MOUTH EVERY WEEK FOR SUPPLEMENT Rx Instructions: TAKE ONE CAPSULE BY MOUTH EVERY WEEK FOR SUPPLEMENT montelukast 10 mg tablet See Rx Instructions .ROUTE .COMPLEX Qty: 30 2RF Dose Instruction: TAKE ONE TABLET BY MOUTH AT BEDTIME FOR ASTHMA Rx Instructions: TAKE ONE TABLET BY MOUTH AT BEDTIME FOR ASTHMA levothyroxine 50 mcg tablet See Rx Instructions .ROUTE .COMPLEX Qty: 30 2RF Dose Instruction: TAKE ONE TABLET BY MOUTH ONCE A DAY Rx Instructions: TAKE ONE TABLET BY MOUTH ONCE A DAY bupropion HCl 75 mg tablet See Rx Instructions .ROUTE .COMPLEX Qty: 60 2RF Dose Instruction: TAKE ONE TABLET BY MOUTH 2 TIMES A DAY Rx Instructions: TAKE ONE TABLET BY MOUTH 2 TIMES A DAY metformin 500 mg tablet See Rx Instructions .ROUTE .COMPLEX Qty: 60 2RF Dose Instruction: TAKE ONE TABLET BY MOUTH 2 TIMES A DAY Rx Instructions: TAKE ONE TABLET BY MOUTH 2 TIMES A DAY duloxetine 60 mg capsule,delayed release(DR/EC) See Rx Instructions .ROUTE .COMPLEX Qty: 30 2RF Dose Instruction: TAKE ONE CAPSULE BY MOUTH ONCE A DAY FOR DEPRESSION Rx Instructions: TAKE ONE CAPSULE BY MOUTH ONCE A DAY FOR DEPRESSION loratadine 10 mg tablet See Rx Instructions .ROUTE .COMPLEX Qty: 30 2RF Dose Instruction: TAKE ONE TABLET BY MOUTH ONCE A DAY NEEDED FOR ALLERGY SYMPTOMS Rx Instructions: TAKE ONE TABLET BY MOUTH ONCE A DAY NEEDED FOR ALLERGY SYMPTOMS Referrals Follow up/Referrals: Gustabo Bowens MD [Primary Care Provider] - See instructions Discharge ED Provider: Antwon Munoz General Adult HPI General Chief complaint: Eye Problems Stated complaint: Lt eye inflammtion Time Seen by Provider: 05/02/22 08:08 Mode of Arrival: Ambulatory Source of Information: Patient Limitations: No Limitations Description of Symptoms (Recalled from ER Triage Doc. by RN): Pt c/o L eye pain x3 days, swelling that began upon waking up this morning. Pt reports no known fevers. Pt is currently being treated for breast cancer through [facility], Dr. Rodriguez. Pt reports she spoke with Dr. Rodriguez this morning who directed her to come to the ER for evaluation. Redness noted on outter corner of eye lid History of Present Illness HPI narrative: Patient presents with a 3 to 4-day history of left eye soreness. Upon awakening this morning she noticed considerable swelling and increasing discomfort to the left periorbital area. She denies fever. She has br
[2022-05-02 08:44] VITALS: BP 109/43; PULSE 84; RESP 18; O2SAT 96
[2022-05-02 08:46] LABS: Basophils % 1.7 % (0.1-2.0); Eosinophils % 1.2 % (0.1-12.0); Hematocrit 30.5 % (37.0-47.0); Hemoglobin 10.4 g/dL (12.2-16.2); Lymphocytes # 0.8 K/mm3 (0.7-4.5); Lymphocytes % 45.7 % (10-50); Mean Corpuscular Hemoglobin 31.2 pg (27.0-31.2); Mean Corpuscular Volume 91.8 fl (81-99); Mean Platelet Volume 8.4 fl (7.4-10.4); Monocytes # 0.2 K/mm3 (0.1-1.0); Monocytes % 10.3 % (1.7-9.3); Neutrophils # 0.8 K/mm3 (1.8-7.8); Platelet Count 243 K/mm3 (142-424); Red Blood Count 3.33 M/mm3 (4.20-5.40); Red Cell Distribution Width 14.9 % (11.5-17.5); White Blood Count 1.8 K/mm3 (4.8-10.8)
[2022-05-02 08:53] LABS: Alanine Aminotransferase 27 U/L (12-78); Albumin Level 3.5 g/dl (3.5-5.0); Albumin/Globulin Ratio 1.4 (1.1-1.8); Alkaline Phosphatase 105 U/L (38-126); Anion Gap 14.7 mEq/L (5-15); Aspartate Amino Transferase 25 U/L (14-36); Bilirubin,Total 0.2 mg/dl (0.2-1.3); Blood Urea Nitrogen 11 mg/dl (7-17); Calcium 8.6 mg/dl (8.4-10.2); Carbon Dioxide 27 mmol/L (22.0-30.0); Chloride 100 mmol/L (98-107); Creatinine Clearance Estimated 96 mL/min (50-200); Estimated Glomerular Filt Rate 87 ml/min (>60); GFR (African American) 106 ML/MIN (>60); Globulin 2.5 g/dL (1.3-3.2); Glucose 118 mg/dl (74-100); Potassium 3.7 mmoL/L (3.5-5.1); Sodium 138 mmol/L (136-145)
[2022-05-02 10:32] VITALS: BP 116/64; PULSE 80; RESP 20; O2SAT 96
--- NOTE | 2022-05-02 10:40 | PC.NURSE ---
placed call to [facility] for consult with an appeals coordinator.
--- NOTE | 2022-05-02 10:46 | PC.NURSE ---
Dr Munoz speaking with Dr gan [facility] geometry teacher
--- NOTE | 2022-05-02 11:24 | PC.NURSE ---
report called to leah bermudez rn at ER at this time
[2022-05-02 11:30] VITALS: BP 118/62; PULSE 80; RESP 16; TEMP 36.9; O2SAT 96
--- NOTE | 2022-05-02 11:46 | PC.NURSE ---
entered room to flush pts port and place tegaderm over top of it in preparation for pt transfer to [facility]. ER had stated okay to leave port accessed. Port would not flush or draw back blood. Tried to mutiple times unable to flush or draw back blood. Explained to pt would have deaccess pt and reaccess pts port, pt was not wanting her port to be reaccessed but explained to pt that since I was not able to get port to flush and could not heparin flush port prior to deaccesssing it I was not comfortable leaving it unaccessed r/t risk of clotting off port. Pt was in agreeance to this. EMLA cream placed on port site per pts request, pt states she normally uses numbing cream prior to getting her port accessed.
--- NOTE | 2022-05-02 11:46 | PC.NURSE ---
entered room to flush pts port and place tegaderm over top of it in preparation for transfer to [facility]. Port would not flush or draw back blood. Explained to pt that I would have to deaccess port and gabriela
--- NOTE | 2022-05-02 12:10 | PC.NURSE ---
port accessed with no issues, blood return noted, flushed easy.
== END 2022-05-02 12:15 | disposition other institution (70) ==
PROVIDERS: Emergency Provider Emergency Medicine; PCP Emergency Medicine
DX: L03.213 Periorbital cellulitis; C50.919 Malignant neoplasm of unspecified site of unspecified female breast; Z79.899 Other long term (current) drug therapy; J45.909 Unspecified asthma, uncomplicated
CPT/HCPCS: 70481; 80053; 85025; 99284; Q9967

== ENCOUNTER 2022-05-06 12:02 | Outpatient (CLI) | payer OTHER, SELFPAY ==
[2022-05-06 12:12] VITALS: BMI 44.1
[2022-05-06 12:37] LABS: Chloride 106 mmol/L (98-107); Potassium 4.2 mmoL/L (3.5-5.1); Sodium 139 mmol/L (136-145)
[2022-05-06 12:40] LABS: Alanine Aminotransferase 29 U/L (12-78); Albumin Level 3.7 g/dl (3.5-5.0); Albumin/Globulin Ratio 1.3 (1.1-1.8); Alkaline Phosphatase 89 U/L (38-126); Anion Gap 9.2 mEq/L (5-15); Aspartate Amino Transferase 31 U/L (14-36); Bilirubin,Total 0.1 mg/dl (0.2-1.3); Blood Urea Nitrogen 10 mg/dl (7-17); Carbon Dioxide 28 mmol/L (22.0-30.0); Creatinine Clearance Estimated 75 mL/min (50-200); Estimated Glomerular Filt Rate 65 ml/min (>60); GFR (African American) 79 ML/MIN (>60); Globulin 2.8 g/dL (1.3-3.2); Total Protein,Serum 6.5 g/dl (6.3-8.2)
[2022-05-06 12:41] LABS: Calcium 8.8 mg/dl (8.4-10.2); Glucose 122 mg/dl (74-100)
[2022-05-06 12:43] LABS: Basophils # 0.1 K/mm3 (0-0.2); Basophils % 0.8 % (0.1-2.0); Eosinophils % 0.4 % (0.1-12.0); Hematocrit 36.7 % (37.0-47.0); Hemoglobin 11.4 g/dL (12.2-16.2); Lymphocytes # 1.5 K/mm3 (0.7-4.5); Lymphocytes % 25.7 % (10-50); Mean Corpuscular Hemoglobin 29.5 pg (27.0-31.2); Mean Platelet Volume 8.4 fl (7.4-10.4); Monocytes # 0.5 K/mm3 (0.1-1.0); Monocytes % 7.9 % (1.7-9.3); Neutrophils # 3.9 K/mm3 (1.8-7.8); Neutrophils % 65.2 % (37.0-80.0); Platelet Count 310 K/mm3 (142-424); Red Blood Count 3.86 M/mm3 (4.20-5.40)
== END 2022-05-06 12:20 | disposition home or self-care (01) ==
LOC: INF 12:03
PROVIDERS: PCP Emergency Medicine
DX: C50.419 Malignant neoplasm of upper-outer quadrant of unspecified female breast (principal)
CPT/HCPCS: 36591; 80053; 85025; J1642

== ENCOUNTER 2022-05-17 13:56 | Emergency (ER) | payer OTHER, SELFPAY ==
[2022-05-17 14:20] VITALS: BP 132/66; PULSE 85; RESP 25; TEMP 36.9; O2SAT 98; BMI 44.3
--- NOTE | 2022-05-17 14:35 | EXP.UTC ---
Discharge Plan Disposition Patient Disposition: Still a Patient Prescriptions Prescriptions: No Action spironolactone 25 mg tablet 25 mg PO DAILY Qty: 30 11RF furosemide [Lasix] 20 mg tablet 20 mg PO DAILY Qty: 30 5RF fluticasone propionate 50 mcg/actuation spray,suspension See Rx Instructions .ROUTE .COMPLEX Qty: 16 0RF Dose Instruction: USE 1 SPRAY IN EACH NOSTRIL ONCE A DAY Rx Instructions: USE 1 SPRAY IN EACH NOSTRIL ONCE A DAY budesonide-formoterol [Symbicort] 160-4.5 mcg/actuation HFA aerosol inhaler 1 puff inhalation QID PRN (Reason: shortness of breath or wheezing) 90 Days Qty: 10.2 3RF epinephrine 0.3 mg/0.3 mL auto-injector 0.3 mg IM Q5-15M PRN (Reason: anaphylaxis) Qty: 2 1RF Rx Instructions: do not exceed 3 doses per episode celecoxib 200 mg capsule See Rx Instructions .ROUTE .COMPLEX Qty: 60 3RF Dose Instruction: TAKE 2 CAPSULES BY MOUTH ONCE A DAY Rx Instructions: TAKE 2 CAPSULES BY MOUTH ONCE A DAY cholecalciferol (vitamin D3) 125 mcg (5,000 unit) capsule See Rx Instructions .ROUTE .COMPLEX Qty: 30 2RF Dose Instruction: TAKE ONE CAPSULE BY MOUTH ONCE A DAY FOR SUPPLEMENT Rx Instructions: TAKE ONE CAPSULE BY MOUTH ONCE A DAY FOR SUPPLEMENT ergocalciferol (vitamin D2) 1,250 mcg (50,000 unit) capsule See Rx Instructions .ROUTE .COMPLEX Qty: 4 2RF Dose Instruction: TAKE ONE CAPSULE BY MOUTH EVERY WEEK FOR SUPPLEMENT Rx Instructions: TAKE ONE CAPSULE BY MOUTH EVERY WEEK FOR SUPPLEMENT montelukast 10 mg tablet See Rx Instructions .ROUTE .COMPLEX Qty: 30 2RF Dose Instruction: TAKE ONE TABLET BY MOUTH AT BEDTIME FOR ASTHMA Rx Instructions: TAKE ONE TABLET BY MOUTH AT BEDTIME FOR ASTHMA levothyroxine 50 mcg tablet See Rx Instructions .ROUTE .COMPLEX Qty: 30 2RF Dose Instruction: TAKE ONE TABLET BY MOUTH ONCE A DAY Rx Instructions: TAKE ONE TABLET BY MOUTH ONCE A DAY bupropion HCl 75 mg tablet See Rx Instructions .ROUTE .COMPLEX Qty: 60 2RF Dose Instruction: TAKE ONE TABLET BY MOUTH 2 TIMES A DAY Rx Instructions: TAKE ONE TABLET BY MOUTH 2 TIMES A DAY metformin 500 mg tablet See Rx Instructions .ROUTE .COMPLEX Qty: 60 2RF Dose Instruction: TAKE ONE TABLET BY MOUTH 2 TIMES A DAY Rx Instructions: TAKE ONE TABLET BY MOUTH 2 TIMES A DAY duloxetine 60 mg capsule,delayed release(DR/EC) See Rx Instructions .ROUTE .COMPLEX Qty: 30 2RF Dose Instruction: TAKE ONE CAPSULE BY MOUTH ONCE A DAY FOR DEPRESSION Rx Instructions: TAKE ONE CAPSULE BY MOUTH ONCE A DAY FOR DEPRESSION loratadine 10 mg tablet See Rx Instructions .ROUTE .COMPLEX Qty: 30 2RF Dose Instruction: TAKE ONE TABLET BY MOUTH ONCE A DAY NEEDED FOR ALLERGY SYMPTOMS Rx Instructions: TAKE ONE TABLET BY MOUTH ONCE A DAY NEEDED FOR ALLERGY SYMPTOMS Referrals Follow up/Referrals: Gustabo Bowens MD [Primary Care Provider] - See instructions Clinical Impressions Clinical Impression: UTI (urinary tract infection) Discharge ED Provider: Eduardo Guardado [facility] [place] General Stated complaint: possible UTI Mode of Arrival: Ambulatory Source of Information: Patient Limitations: No Limitations Time Seen by Provider: 05/17/22 14:35 Description of Symptoms (Recalled from Triage Doc. by RN): PATIENT C/O LEFT SIDE PAIN AND BURNING WITH URINATION X 3 DAYS HEENT Symptoms (Recalled from RN notes): No Resp Symptoms (Recalled from RN notes): No Skin Symptoms (Recalled from RN notes): No MS Symptoms (Recalled from RN notes): No Functional Status (Recalled from RN notes): WNL History of Present Illness Provider Complaint: 56 yr old female presents for burning with voiding and left flank pain for 3 days, pt states she is concerned she has sepsis Related Data Previous Rx's Medication Instructions Recorded epinephrine 0.3 mg/0.3 mL 0.3 mg (0.3 mL) IM Q5-15M
[2022-05-17 14:39] LABS: Apearance,Urine Cloudy (Clear); Bilirubin,Urine Negative (Negative); Blood, Urine Negative (Negative); Color,Urine Dark Yellow (Yellow); Glucose,Urine (UA) Negative (Negative); Ketones,Urine TRACE (Negative); Protein,Urine Negative (Negative)
[2022-05-17 14:40] LABS: UTC Leukocyte Esterase,Urine Trace (Negative); UTC Nitrate,Urine Negative (Negative); Urobilinogen,Urine 0.2 EU/dl (0.2)
[2022-05-17 14:57] VITALS: PULSE 83; RESP 18; O2SAT 96; BMI 44.4
[2022-05-17 15:08] LABS: Microscopic, Urine URINE MICROSCOPIC (MICROSCOPIC)
--- NOTE | 2022-05-17 15:10 | CT_ITS ---
PROCEDURE INFORMATION: Exam: CT Abdomen And Pelvis Without Contrast Exam date and time: 05/17/2022 3:17 PM Age: 56 years old Clinical indication: Abdominal pain; Flank; Left; Additional info: L flank pain, R/O stone TECHNIQUE: Imaging protocol: Computed tomography of the abdomen and pelvis without contrast. Radiation optimization: All CT scans at this facility use at least one of these dose optimization techniques: automated exposure control; mA and/or kV adjustment per patient size (includes targeted exams where dose is matched to clinical indication); or iterative reconstruction. COMPARISON: CT ABDOMEN PELVIS W CON 03/17/2022 9:40 AM FINDINGS: Liver: Normal. No mass. Gallbladder and bile ducts: Normal. No calcified stones. No ductal dilation. Pancreas: Normal. No ductal dilation. Spleen: Normal. No splenomegaly. Adrenal glands: Normal. No mass. Kidneys and ureters: There is no evidence of renal or ureteral calcifications. Stomach and bowel: Unremarkable. No obstruction. No mucosal thickening. Appendix: No evidence of appendicitis. Intraperitoneal space: Unremarkable. No free air. No significant fluid collection. Vasculature: Unremarkable. No abdominal aortic aneurysm. Lymph nodes: Unremarkable. No enlarged lymph nodes. Urinary bladder: Unremarkable as visualized. Reproductive: Surgical resection of the uterus Bones/joints: Unremarkable. No acute fracture. Soft tissues: Anterior mesh herniorrhaphy at the umbilicus IMPRESSION: There is no evidence of renal or ureteral calcifications.
--- NOTE | 2022-05-17 15:11 | HMH.EDGENADL ---
Discharge Plan Disposition Patient Disposition: Home, Self-Care Condition: Good Prescriptions Prescriptions: New triamcinolone acetonide [Kenalog] 0.147 mg/gram aerosol 1 spray topical QID Qty: 63 0RF No Action spironolactone 25 mg tablet 25 mg PO DAILY Qty: 30 11RF furosemide [Lasix] 20 mg tablet 20 mg PO DAILY Qty: 30 5RF fluticasone propionate 50 mcg/actuation spray,suspension See Rx Instructions .ROUTE .COMPLEX Qty: 16 0RF Dose Instruction: USE 1 SPRAY IN EACH NOSTRIL ONCE A DAY Rx Instructions: USE 1 SPRAY IN EACH NOSTRIL ONCE A DAY budesonide-formoterol [Symbicort] 160-4.5 mcg/actuation HFA aerosol inhaler 1 puff inhalation QID PRN (Reason: shortness of breath or wheezing) 90 Days Qty: 10.2 3RF epinephrine 0.3 mg/0.3 mL auto-injector 0.3 mg IM Q5-15M PRN (Reason: anaphylaxis) Qty: 2 1RF Rx Instructions: do not exceed 3 doses per episode celecoxib 200 mg capsule See Rx Instructions .ROUTE .COMPLEX Qty: 60 3RF Dose Instruction: TAKE 2 CAPSULES BY MOUTH ONCE A DAY Rx Instructions: TAKE 2 CAPSULES BY MOUTH ONCE A DAY cholecalciferol (vitamin D3) 125 mcg (5,000 unit) capsule See Rx Instructions .ROUTE .COMPLEX Qty: 30 2RF Dose Instruction: TAKE ONE CAPSULE BY MOUTH ONCE A DAY FOR SUPPLEMENT Rx Instructions: TAKE ONE CAPSULE BY MOUTH ONCE A DAY FOR SUPPLEMENT ergocalciferol (vitamin D2) 1,250 mcg (50,000 unit) capsule See Rx Instructions .ROUTE .COMPLEX Qty: 4 2RF Dose Instruction: TAKE ONE CAPSULE BY MOUTH EVERY WEEK FOR SUPPLEMENT Rx Instructions: TAKE ONE CAPSULE BY MOUTH EVERY WEEK FOR SUPPLEMENT montelukast 10 mg tablet See Rx Instructions .ROUTE .COMPLEX Qty: 30 2RF Dose Instruction: TAKE ONE TABLET BY MOUTH AT BEDTIME FOR ASTHMA Rx Instructions: TAKE ONE TABLET BY MOUTH AT BEDTIME FOR ASTHMA levothyroxine 50 mcg tablet See Rx Instructions .ROUTE .COMPLEX Qty: 30 2RF Dose Instruction: TAKE ONE TABLET BY MOUTH ONCE A DAY Rx Instructions: TAKE ONE TABLET BY MOUTH ONCE A DAY bupropion HCl 75 mg tablet See Rx Instructions .ROUTE .COMPLEX Qty: 60 2RF Dose Instruction: TAKE ONE TABLET BY MOUTH 2 TIMES A DAY Rx Instructions: TAKE ONE TABLET BY MOUTH 2 TIMES A DAY metformin 500 mg tablet See Rx Instructions .ROUTE .COMPLEX Qty: 60 2RF Dose Instruction: TAKE ONE TABLET BY MOUTH 2 TIMES A DAY Rx Instructions: TAKE ONE TABLET BY MOUTH 2 TIMES A DAY duloxetine 60 mg capsule,delayed release(DR/EC) See Rx Instructions .ROUTE .COMPLEX Qty: 30 2RF Dose Instruction: TAKE ONE CAPSULE BY MOUTH ONCE A DAY FOR DEPRESSION Rx Instructions: TAKE ONE CAPSULE BY MOUTH ONCE A DAY FOR DEPRESSION loratadine 10 mg tablet See Rx Instructions .ROUTE .COMPLEX Qty: 30 2RF Dose Instruction: TAKE ONE TABLET BY MOUTH ONCE A DAY NEEDED FOR ALLERGY SYMPTOMS Rx Instructions: TAKE ONE TABLET BY MOUTH ONCE A DAY NEEDED FOR ALLERGY SYMPTOMS Referrals Follow up/Referrals: Gustabo Bowens MD [Primary Care Provider] - See instructions Activity Restrictions/Add. Instructions Additional Instructions/Restrictions: Urine culture has been performed, results generally take 2 to 3 days. Follow-up the results of this test with your primary care provider within 2 to 3 days. Kenalog spray as needed to rash on back, continue Kenalog ointment to other areas. Follow-up with your oncologist and primary care provider for further care. Clinical Impressions Clinical Impression: Dysuria, Left flank pain, Rash Instructions Patient Instructions: DI for Rash, DI for Dysuria -- Adult, DI for Flank Pain Discharge ED Provider: Eduardo Guardado Adult [facility] General Chief complaint: PAIN Stated complaint: possible UTI Time Seen by Provider: 05/17/22 14:35 Mode of Arrival: Ambulatory Source of Information: Patient Limitations: N
[2022-05-17 15:18] LABS: Basophils % 0.8 % (0.1-2.0); Eosinophils % 0.9 % (0.1-12.0); Hematocrit 30.2 % (37.0-47.0); Hemoglobin 10.2 g/dL (12.2-16.2); Lymphocytes # 1.1 K/mm3 (0.7-4.5); Lymphocytes % 45.1 % (10-50); Mean Corpuscular HGB Conc 33.6 g/dL (31.8-35.4); Mean Corpuscular Hemoglobin 31.2 pg (27.0-31.2); Mean Corpuscular Volume 92.9 fl (81-99); Mean Platelet Volume 8.2 fl (7.4-10.4); Monocytes # 0.3 K/mm3 (0.1-1.0); Neutrophils % 41.3 % (37.0-80.0); Platelet Count 247 K/mm3 (142-424); Red Blood Count 3.25 M/mm3 (4.20-5.40); Red Cell Distribution Width 16.5 % (11.5-17.5); White Blood Count 2.5 K/mm3 (4.8-10.8)
[2022-05-17 15:19] LABS: Appearance,Urine SL CLOUDY (Clear); Bilirubin,Urine Negative (Negative); Blood, Urine Negative (Negative); Color,Urine YELLOW (Yellow); Glucose,Urine (UA) Negative (Negative); Ketones,Urine TRACE (Negative); Leukocyte Esterase,Urine TRACE (Negative); Nitrate,Urine Negative (Negative); Protein,Urine Negative (Negative); Specific Gravity, Urine >= 1.030 (1.005-1.030); Urobilinogen,Urine 0.2 EU/dl (0.2)
[2022-05-17 15:20] LABS: Chloride 109 mmol/L (98-107); Potassium 3.8 mmoL/L (3.5-5.1); Sodium 141 mmol/L (136-145)
[2022-05-17 15:22] LABS: Alanine Aminotransferase 23 U/L (12-78); Aspartate Amino Transferase 27 U/L (14-36); Blood Urea Nitrogen 11 mg/dl (7-17); Creatinine Clearance Estimated 93 mL/min (50-200); Estimated Glomerular Filt Rate 87 ml/min (>60); GFR (African American) 106 ML/MIN (>60)
[2022-05-17 15:23] LABS: Albumin Level 3.6 g/dl (3.5-5.0); Albumin/Globulin Ratio 1.4 (1.1-1.8); Alkaline Phosphatase 82 U/L (38-126); Anion Gap 8.8 mEq/L (5-15); Bilirubin,Total < 0.1 mg/dl (0.2-1.3); Calcium 8.9 mg/dl (8.4-10.2); Carbon Dioxide 27 mmol/L (22.0-30.0); Globulin 2.6 g/dL (1.3-3.2); Glucose 122 mg/dl (74-100); Total Protein,Serum 6.2 g/dl (6.3-8.2)
[2022-05-17 15:31] VITALS: BP 115/58; PULSE 82; O2SAT 96
[2022-05-17 15:37] LABS: Bacteria,Urine 2+ /lpf; Calcium Oxalate Crystals,Urine 4+ /lpf
[2022-05-17 16:01] VITALS: BP 105/48; PULSE 85; O2SAT 96
[2022-05-17 16:31] VITALS: BP 109/70; PULSE 79; O2SAT 96
[2022-05-17 17:07] VITALS: BP 109/70; PULSE 79; RESP 18; TEMP 36.9; O2SAT 96
== END 2022-05-17 17:08 | disposition home or self-care (01) ==
LOC: UTC 13:57 → ER 14:40
PROVIDERS: Nurse Practitioner Family; Emergency Provider Emergency Medicine; PCP Emergency Medicine
DX: N39.0 Urinary tract infection, site not specified (principal); B96.89 Other specified bacterial agents as the cause of diseases classified elsewhere; Z16.11 Resistance to penicillins; R21 Rash and other nonspecific skin eruption; Z79.84 Long term (current) use of oral hypoglycemic drugs; Z88.6 Allergy status to analgesic agent; J45.909 Unspecified asthma, uncomplicated; I51.89 Other ill-defined heart diseases
CPT/HCPCS: 74176; 80053; 81001; 81003; 83605; 85025; 87040; 87086; 87088; 87186; 96374; 99284; J1642

== ENCOUNTER 2022-05-20 08:14 | Outpatient (CLI) | payer OTHER, SELFPAY ==
[2022-05-20 08:28] VITALS: BMI 44.3
[2022-05-20 09:10] LABS: Eosinophils % 0.3 % (0.1-12.0); Hematocrit 30.4 % (37.0-47.0); Hemoglobin 10.3 g/dL (12.2-16.2); Lymphocytes # 1.1 K/mm3 (0.7-4.5); Lymphocytes % 24.9 % (10-50); Mean Corpuscular HGB Conc 33.8 g/dL (31.8-35.4); Mean Corpuscular Hemoglobin 31.7 pg (27.0-31.2); Mean Corpuscular Volume 93.7 fl (81-99); Mean Platelet Volume 8.1 fl (7.4-10.4); Monocytes # 0.4 K/mm3 (0.1-1.0); Neutrophils % 65.7 % (37.0-80.0); Platelet Count 234 K/mm3 (142-424); Red Blood Count 3.24 M/mm3 (4.20-5.40); White Blood Count 4.5 K/mm3 (4.8-10.8)
[2022-05-20 09:13] LABS: Chloride 107 mmol/L (98-107); Sodium 141 mmol/L (136-145)
[2022-05-20 09:14] LABS: Potassium 3.5 mmoL/L (3.5-5.1)
[2022-05-20 09:16] LABS: Alanine Aminotransferase 26 U/L (12-78); Albumin Level 3.5 g/dl (3.5-5.0); Albumin/Globulin Ratio 1.4 (1.1-1.8); Alkaline Phosphatase 76 U/L (38-126); Anion Gap 9.5 mEq/L (5-15); Aspartate Amino Transferase 37 U/L (14-36); Blood Urea Nitrogen 10 mg/dl (7-17); Carbon Dioxide 28 mmol/L (22.0-30.0); Creatinine Clearance Estimated 96 mL/min (50-200); Estimated Glomerular Filt Rate 87 ml/min (>60); GFR (African American) 106 ML/MIN (>60); Globulin 2.5 g/dL (1.3-3.2)
[2022-05-20 09:17] LABS: Bilirubin,Total < 0.1 mg/dl (0.2-1.3); Calcium 8.9 mg/dl (8.4-10.2); Glucose 110 mg/dl (74-100)
== END 2022-05-20 08:47 | disposition home or self-care (01) ==
LOC: INF 08:20
PROVIDERS: Internal Medicine Hematology & Oncology; PCP Emergency Medicine
DX: C50.912 Malignant neoplasm of unspecified site of left female breast (principal); Z45.2 Encounter for adjustment and management of vascular access device
CPT/HCPCS: 36591; 80053; 85025; J1642

== ENCOUNTER → 2022-06-02 13:42 | Outpatient (CLI) | payer OTHER, SELFPAY ==
--- NOTE | 2022-06-02 14:07 | US_ITS ---
CLINICAL HISTORY: MALIGNANT TUMOR OF BREAST - need report for the planning of chemo FINDINGS: LEFT BREAST ULTRASOUND HISTORY: Previously diagnosed breast cancer 2:00 left breast. Patient on chemotherapy, reevaluate for shrinkage. Compare prior study of February 13, 2022. FINDINGS: 2 o'clock position left breast 8 cm from the nipple the inhomogeneous mass of mixed echogenicity with posterior shadowing is again identified. On the prior study, the mass measured 35 x 36 x 26 mm. On today's exam this measures 38 x 40 x 37 mm indicating mild interval increase in size. IMPRESSION: Mild interval increase in size of biopsy-proven breast cancer 2 o'clock position left breast; previous maximum diameter was 36 mm and is now 40 mm. BI-RADS 6: Known breast cancer. RECOMMENDATION: Follow-up per oncologist. Results sent to the patient in layman's terms. MTDD
== END ==
PROVIDERS: PCP Emergency Medicine; Visit Provider Internal Medicine Hematology & Oncology
DX: C50.912 Malignant neoplasm of unspecified site of left female breast (principal)
CPT/HCPCS: 76641

== ENCOUNTER 2022-06-04 10:49 | Outpatient (CLI) | payer OTHER, SELFPAY ==
[2022-06-04 10:57] VITALS: BMI 42.8
[2022-06-04 11:30] LABS: Basophils # 0.1 K/mm3 (0-0.2); Basophils % 0.9 % (0.1-2.0); Eosinophils # 0.1 K/mm3 (0.0-0.4); Eosinophils % 1.1 % (0.1-12.0); Hemoglobin 11.8 g/dL (12.2-16.2); Lymphocytes # 1.5 K/mm3 (0.7-4.5); Lymphocytes % 25.7 % (10-50); Mean Corpuscular HGB Conc 33.7 g/dL (31.8-35.4); Mean Corpuscular Hemoglobin 32.2 pg (27.0-31.2); Mean Corpuscular Volume 95.5 fl (81-99); Monocytes # 0.5 K/mm3 (0.1-1.0); Monocytes % 8.3 % (1.7-9.3); Neutrophils # 3.7 K/mm3 (1.8-7.8); Neutrophils % 63.9 % (37.0-80.0); Platelet Count 337 K/mm3 (142-424); Red Blood Count 3.67 M/mm3 (4.20-5.40); Red Cell Distribution Width 17.6 % (11.5-17.5); White Blood Count 5.8 K/mm3 (4.8-10.8)
[2022-06-04 11:37] LABS: Chloride 106 mmol/L (98-107); Potassium 4.1 mmoL/L (3.5-5.1); Sodium 139 mmol/L (136-145)
[2022-06-04 11:40] LABS: Alanine Aminotransferase 54 U/L (12-78); Albumin Level 3.9 g/dl (3.5-5.0); Albumin/Globulin Ratio 1.4 (1.1-1.8); Alkaline Phosphatase 78 U/L (38-126); Anion Gap 7.1 mEq/L (5-15); Aspartate Amino Transferase 47 U/L (14-36); Bilirubin,Total 0.4 mg/dl (0.2-1.3); Blood Urea Nitrogen 13 mg/dl (7-17); Calcium 8.6 mg/dl (8.4-10.2); Carbon Dioxide 30 mmol/L (22.0-30.0); Creatinine Clearance Estimated 84 mL/min (50-200); Estimated Glomerular Filt Rate 75 ml/min (>60); GFR (African American) 90 ML/MIN (>60); Globulin 2.8 g/dL (1.3-3.2); Glucose 120 mg/dl (74-100); Total Protein,Serum 6.7 g/dl (6.3-8.2)
== END 2022-06-04 11:20 | disposition home or self-care (01) ==
LOC: INF 10:49
PROVIDERS: Visit Provider Emergency Medicine
DX: C50.919 Malignant neoplasm of unspecified site of unspecified female breast (principal); Z45.2 Encounter for adjustment and management of vascular access device
CPT/HCPCS: 36591; 80053; 85025; J1642

== ENCOUNTER 2022-06-17 10:28 | Outpatient (CLI) | payer OTHER, SELFPAY ==
[2022-06-17 10:33] VITALS: BMI 42.8
[2022-06-17 11:05] LABS: Basophils % 0.4 % (0.1-2.0); Eosinophils # 0.2 K/mm3 (0.0-0.4); Hematocrit 34.7 % (37.0-47.0); Hemoglobin 11.3 g/dL (12.2-16.2); Lymphocytes # 1.7 K/mm3 (0.7-4.5); Lymphocytes % 23.3 % (10-50); Mean Corpuscular HGB Conc 32.7 g/dL (31.8-35.4); Mean Corpuscular Hemoglobin 31.8 pg (27.0-31.2); Mean Corpuscular Volume 97.3 fl (81-99); Mean Platelet Volume 8.5 fl (7.4-10.4); Monocytes # 0.3 K/mm3 (0.1-1.0); Monocytes % 4.5 % (1.7-9.3); Neutrophils # 5.1 K/mm3 (1.8-7.8); Neutrophils % 68.8 % (37.0-80.0); Platelet Count 395 K/mm3 (142-424); Red Blood Count 3.57 M/mm3 (4.20-5.40); Red Cell Distribution Width 17.6 % (11.5-17.5); White Blood Count 7.4 K/mm3 (4.8-10.8)
[2022-06-17 11:15] LABS: Alanine Aminotransferase 43 U/L (12-78); Albumin Level 3.9 g/dl (3.5-5.0); Albumin/Globulin Ratio 1.3 (1.1-1.8); Alkaline Phosphatase 89 U/L (38-126); Anion Gap 8.1 mEq/L (5-15); Aspartate Amino Transferase 40 U/L (14-36); Bilirubin,Total 0.4 mg/dl (0.2-1.3); Blood Urea Nitrogen 11 mg/dl (7-17); Calcium 8.7 mg/dl (8.4-10.2); Carbon Dioxide 30 mmol/L (22.0-30.0); Chloride 105 mmol/L (98-107); Creatinine Clearance Estimated 84 mL/min (50-200); Estimated Glomerular Filt Rate 75 ml/min (>60); GFR (African American) 90 ML/MIN (>60); Glucose 111 mg/dl (74-100); Potassium 4.1 mmoL/L (3.5-5.1); Sodium 139 mmol/L (136-145); Total Protein,Serum 6.9 g/dl (6.3-8.2)
== END 2022-06-17 10:54 | disposition home or self-care (01) ==
LOC: INF 10:29
PROVIDERS: PCP Emergency Medicine; Visit Provider Internal Medicine Hematology & Oncology
DX: C50.419 Malignant neoplasm of upper-outer quadrant of unspecified female breast (principal); Z45.2 Encounter for adjustment and management of vascular access device
CPT/HCPCS: 36415; 80053; 85025; 96523; J1642

== ENCOUNTER 2022-07-11 13:50 | Outpatient (CLI) | payer OTHER, SELFPAY ==
[2022-07-11 13:57] VITALS: BMI 43.8
[2022-07-11 14:37] LABS: Alanine Aminotransferase 53 U/L (12-78); Albumin Level 3.8 g/dl (3.5-5.0); Albumin/Globulin Ratio 1.4 (1.1-1.8); Alkaline Phosphatase 83 U/L (38-126); Anion Gap 6.1 mEq/L (5-15); Aspartate Amino Transferase 35 U/L (14-36); Bilirubin,Total 0.4 mg/dl (0.2-1.3); Blood Urea Nitrogen 11 mg/dl (7-17); Calcium 8.5 mg/dl (8.4-10.2); Carbon Dioxide 30 mmol/L (22.0-30.0); Chloride 109 mmol/L (98-107); Creatinine Clearance Estimated 61 mL/min (50-200); Estimated Glomerular Filt Rate 52 ml/min (>60); GFR (African American) 63 ML/MIN (>60); Globulin 2.8 g/dL (1.3-3.2); Glucose 105 mg/dl (74-100); Potassium 4.1 mmoL/L (3.5-5.1); Sodium 141 mmol/L (136-145); Total Protein,Serum 6.6 g/dl (6.3-8.2)
[2022-07-11 14:39] LABS: Basophils # 0.1 K/mm3 (0-0.2); Basophils % 0.6 % (0.1-2.0); Eosinophils # 0.1 K/mm3 (0.0-0.4); Eosinophils % 1.7 % (0.1-12.0); Hematocrit 34.2 % (37.0-47.0); Hemoglobin 11.4 g/dL (12.2-16.2); Lymphocytes % 27.2 % (10-50); Mean Corpuscular HGB Conc 33.2 g/dL (31.8-35.4); Mean Corpuscular Hemoglobin 32.2 pg (27.0-31.2); Mean Corpuscular Volume 96.8 fl (81-99); Mean Platelet Volume 8.1 fl (7.4-10.4); Monocytes # 0.3 K/mm3 (0.1-1.0); Monocytes % 4.2 % (1.7-9.3); Neutrophils # 4.8 K/mm3 (1.8-7.8); Neutrophils % 66.3 % (37.0-80.0); Platelet Count 347 K/mm3 (142-424); Red Blood Count 3.53 M/mm3 (4.20-5.40); Red Cell Distribution Width 16.2 % (11.5-17.5); White Blood Count 7.3 K/mm3 (4.8-10.8)
== END 2022-07-11 14:25 | disposition home or self-care (01) ==
PROVIDERS: PCP Emergency Medicine; Visit Provider Internal Medicine Hematology & Oncology
DX: C50.411 Malignant neoplasm of upper-outer quadrant of right female breast (principal)
CPT/HCPCS: 36591; 80053; 85025; J1642

== ENCOUNTER → 2022-08-06 13:54 | Outpatient (CLI) | payer OTHER, SELFPAY ==
--- NOTE | 2022-08-06 13:57 | MM_ITS ---
PROCEDURE INFORMATION: Exam: Left Diagnostic Breast Tomosynthesis Exam date and time: 08/06/2022 1:56 PM Age: 57 years old Clinical indication: Known left breast cancer. Needed for surgical planning TECHNIQUE: Imaging protocol: Left Diagnostic tomosynthesis and 2D mammography including computer-aided detection (CAD) when performed. Unilateral or bilateral exam. COMPARISON: MG MM CLIP PLACEMENT LT 02/25/2022 9:38 AM FINDINGS: MAMMOGRAPHY: The breast tissue is composed of scattered areas of fibroglandular density. Biopsy-proven carcinoma in the left upper outer quadrant is better measured on sonography. On the mammographic examination the mass is seen as an irregularly marginated partially spiculated mass containing pleomorphic microcalcifications measuring approximately 3.2 x 3.8 cm in dimension. No skin thickening or axillary adenopathy. IMPRESSION: Biopsy-proven carcinoma in the left upper outer quadrant. Measurements on sonography are most likely more accurate given the ill-defined margins on mammography. ASSESSMENT: BI-RADS Category 6: Known Biopsy-Proven Malignancy
== END ==
PROVIDERS: PCP Emergency Medicine; Visit Provider Surgery Surgical Oncology
DX: C50.412 Malignant neoplasm of upper-outer quadrant of left female breast (principal); Z17.0 Estrogen receptor positive status [ER+]
CPT/HCPCS: 77061; 77065; G0279

== ENCOUNTER 2022-08-15 17:17 | Emergency (ER) | payer OTHER, SELFPAY ==
[2022-08-15 17:18] VITALS: BP 136/72; PULSE 93; RESP 17; TEMP 36.6; O2SAT 96; BMI 43.0
[2022-08-15 17:40] VITALS: BP 136/72; PULSE 90; O2SAT 96
--- NOTE | 2022-08-15 18:02 | HMH.EDGENADL ---
Discharge Plan Disposition Patient Disposition: Home, Self-Care Prescriptions Prescriptions: New cephalexin 500 mg capsule 500 mg PO QID 10 Days Qty: 40 0RF sulfamethoxazole-trimethoprim [Bactrim DS] 800-160 mg tablet 1 tab PO BID 10 Days Qty: 20 0RF No Action spironolactone 25 mg tablet 25 mg PO DAILY Qty: 30 11RF furosemide [Lasix] 20 mg tablet 20 mg PO DAILY Qty: 30 5RF oxycodone 5 mg capsule 5 mg PO Q6H PRN Neulasta 6 mg/0.6 mL syringe 6 mg SQ Q2W fluticasone propionate 50 mcg/actuation spray,suspension See Rx Instructions .ROUTE .COMPLEX Qty: 16 0RF Dose Instruction: USE 1 SPRAY IN EACH NOSTRIL ONCE A DAY Rx Instructions: USE 1 SPRAY IN EACH NOSTRIL ONCE A DAY epinephrine 0.3 mg/0.3 mL auto-injector 0.3 mg IM Q5-15M PRN (Reason: anaphylaxis) Qty: 2 1RF Rx Instructions: do not exceed 3 doses per episode loratadine 10 mg tablet See Rx Instructions .ROUTE .COMPLEX Qty: 30 2RF Dose Instruction: TAKE ONE TABLET BY MOUTH ONCE A DAY NEEDED FOR ALLERGY SYMPTOMS Rx Instructions: TAKE ONE TABLET BY MOUTH ONCE A DAY NEEDED FOR ALLERGY SYMPTOMS albuterol sulfate [ProAir HFA] 90 mcg/actuation HFA aerosol inhaler See Rx Instructions .ROUTE .COMPLEX Qty: 8.5 2RF Dose Instruction: INHALE 2 PUFFS BY MOUTH EVERY 6 HOURS NEEDED FOR SHORTNESS OF BREATH Rx Instructions: INHALE 2 PUFFS BY MOUTH EVERY 6 HOURS NEEDED FOR SHORTNESS OF BREATH montelukast 10 mg tablet See Rx Instructions .ROUTE .COMPLEX Qty: 30 2RF Dose Instruction: TAKE ONE TABLET BY MOUTH AT BEDTIME FOR ASTHMA Rx Instructions: TAKE ONE TABLET BY MOUTH AT BEDTIME FOR ASTHMA celecoxib 200 mg capsule See Rx Instructions .ROUTE .COMPLEX Qty: 60 2RF Dose Instruction: TAKE 2 CAPSULES BY MOUTH ONCE A DAY Rx Instructions: TAKE 2 CAPSULES BY MOUTH ONCE A DAY ergocalciferol (vitamin D2) 1,250 mcg (50,000 unit) capsule See Rx Instructions .ROUTE .COMPLEX Qty: 4 2RF Dose Instruction: TAKE ONE CAPSULE BY MOUTH EVERY WEEK FOR SUPPLEMENT Rx Instructions: TAKE ONE CAPSULE BY MOUTH EVERY WEEK FOR SUPPLEMENT cholecalciferol (vitamin D3) 125 mcg (5,000 unit) capsule See Rx Instructions .ROUTE .COMPLEX Qty: 30 2RF Dose Instruction: TAKE ONE CAPSULE BY MOUTH ONCE A DAY FOR SUPPLEMENT Rx Instructions: TAKE ONE CAPSULE BY MOUTH ONCE A DAY FOR SUPPLEMENT levothyroxine 50 mcg tablet See Rx Instructions .ROUTE .COMPLEX Qty: 90 3RF Dose Instruction: TAKE ONE TABLET BY MOUTH ONCE A DAY Rx Instructions: TAKE ONE TABLET BY MOUTH ONCE A DAY bupropion HCl 75 mg tablet See Rx Instructions .ROUTE .COMPLEX Qty: 180 3RF Dose Instruction: TAKE ONE TABLET BY MOUTH 2 TIMES A DAY Rx Instructions: TAKE ONE TABLET BY MOUTH 2 TIMES A DAY metformin 500 mg tablet See Rx Instructions .ROUTE .COMPLEX Qty: 60 2RF Dose Instruction: TAKE ONE TABLET BY MOUTH 2 TIMES A DAY Rx Instructions: TAKE ONE TABLET BY MOUTH 2 TIMES A DAY duloxetine 60 mg capsule,delayed release(DR/EC) See Rx Instructions .ROUTE .COMPLEX Qty: 30 2RF Dose Instruction: TAKE ONE CAPSULE BY MOUTH ONCE A DAY FOR DEPRESSION Rx Instructions: TAKE ONE CAPSULE BY MOUTH ONCE A DAY FOR DEPRESSION triamcinolone acetonide [Kenalog] 0.147 mg/gram aerosol 1 spray topical QID Qty: 63 0RF Referrals Follow up/Referrals: Gustabo Bowens MD [Primary Care Provider] - See instructions Clinical Impressions Clinical Impression: Cellulitis of chest wall, Infection of venous access port Instructions Patient Instructions: DI for Laceration Repair Discharge ED Provider: Penelope Barclay General Adult HPI General Chief complaint: Wound/Laceration Stated complaint: possible chemo port infection Time Seen by Provider: 08/15/22 18:02 Mode of Arrival: Ambulatory Source of Information: Patient
--- NOTE | 2022-08-15 18:13 | PC.NURSE ---
calling [facility] for the md adult remedial education instructor for yared cotton
[2022-08-15 18:29] LABS: Basophils # 0.1 K/mm3 (0-0.2); Basophils % 1.6 % (0.1-2.0); Chloride 106 mmol/L (98-107); Eosinophils # 0.3 K/mm3 (0.0-0.4); Hematocrit 41.2 % (37.0-47.0); Hemoglobin 13.5 g/dL (12.2-16.2); Lymphocytes # 2.7 K/mm3 (0.7-4.5); Lymphocytes % 42.4 % (10-50); Mean Corpuscular HGB Conc 32.8 g/dL (31.8-35.4); Mean Corpuscular Hemoglobin 31.3 pg (27.0-31.2); Mean Corpuscular Volume 95.4 fl (81-99); Mean Platelet Volume 7.7 fl (7.4-10.4); Monocytes # 0.3 K/mm3 (0.1-1.0); Monocytes % 4.2 % (1.7-9.3); Neutrophils % 46.8 % (37.0-80.0); Platelet Count 319 K/mm3 (142-424); Red Blood Count 4.32 M/mm3 (4.20-5.40); Red Cell Distribution Width 13.9 % (11.5-17.5); Sodium 139 mmol/L (136-145); White Blood Count 6.5 K/mm3 (4.8-10.8)
[2022-08-15 18:30] LABS: Potassium 3.9 mmoL/L (3.5-5.1)
[2022-08-15 18:32] LABS: Alanine Aminotransferase 28 U/L (12-78); Albumin Level 4.1 g/dl (3.5-5.0); Albumin/Globulin Ratio 1.3 (1.1-1.8); Alkaline Phosphatase 69 U/L (38-126); Anion Gap 8.9 mEq/L (5-15); Aspartate Amino Transferase 32 U/L (14-36); Bilirubin,Total 0.3 mg/dl (0.2-1.3); Blood Urea Nitrogen 11 mg/dl (7-17); Carbon Dioxide 28 mmol/L (22.0-30.0); Creatinine Clearance Estimated 83 mL/min (50-200); Estimated Glomerular Filt Rate 74 ml/min (>60); GFR (African American) 90 ML/MIN (>60); Globulin 3.1 g/dL (1.3-3.2); Total Protein,Serum 7.2 g/dl (6.3-8.2)
[2022-08-15 18:33] LABS: Calcium 9.1 mg/dl (8.4-10.2); Glucose 132 mg/dl (74-100)
[2022-08-15 18:38] LABS: C-Reactive Protein 3.8 mg/L (0-4)
[2022-08-15 19:21] LABS: Erythrocyte Sedimentation Rate 47 mm/hr (0-30)
--- NOTE | 2022-08-15 19:26 | PC.NURSE ---
er spoke with pt she refusing transfer calling [facility] to cancel call back
[2022-08-15 20:12] VITALS: BP 136/72; PULSE 90; RESP 18; TEMP 36.6; O2SAT 99
== END 2022-08-15 20:14 | disposition home or self-care (01) ==
PROVIDERS: Emergency Provider Student in an Organized Health Care Education/Training Program; PCP Emergency Medicine
DX: L03.313 Cellulitis of chest wall (principal); Z85.3 Personal history of malignant neoplasm of breast; Z92.21 Personal history of antineoplastic chemotherapy; Z86.79 Personal history of other diseases of the circulatory system; J30.9 Allergic rhinitis, unspecified; J45.20 Mild intermittent asthma, uncomplicated; Z87.891 Personal history of nicotine dependence; Z90.710 Acquired absence of both cervix and uterus
CPT/HCPCS: 80053; 85025; 85651; 86140; 87040; 99284; 99285

== ENCOUNTER → 2022-11-12 09:23 | Outpatient (CLI) | payer OTHER, SELFPAY ==
--- NOTE | 2022-11-12 09:31 | CT_ITS ---
FINAL REPORT CLINICAL HISTORY: MALIGNANT NEOPLASM patient states she was treated for her breast cancer first, now that chemo is done. known lung nodule from prior ct chest. eval nodule today. FINDINGS: CT CHEST WITH CONTRAST TECHNIQUE: After the administration of intravenous contrast, axial images through the chest were performed by computed tomography. This study was performed with techniques to keep radiation doses as low as reasonably achievable, (ALARA). Individualized dose reduction techniques using automated exposure control or adjustment of mA and/or kV according to the patient's size were employed. FINDINGS: There are postoperative changes in the left breast. An aberrant right subclavian artery is again noted. There is no axillary adenopathy. There is no hilar or mediastinal adenopathy. The heart size is normal. There is no pericardial or pleural effusion. Limited images of the upper abdomen are unremarkable. There is a 4 mm nodule in the anterior right lung base which is stable. There is also a stable, 2 mm nodule in the right lower lobe laterally on image 52. There is no new pulmonary nodule. IMPRESSION: Stable pulmonary nodules which are most likely benign, inflammatory nodules. Reviewed, Interpreted and Dictated by Zurdo Arita MD Transcribed by Famtata Tran Authenticated and [facility]
== END ==
PROVIDERS: PCP Internal Medicine; Visit Provider Internal Medicine Hematology & Oncology
DX: C50.919 Malignant neoplasm of unspecified site of unspecified female breast (principal); R91.8 Other nonspecific abnormal finding of lung field
CPT/HCPCS: 71260; J1642; Q9967

== ENCOUNTER → 2022-11-19 09:15 | Outpatient (CLI) | payer OTHER, SELFPAY ==
--- NOTE | 2022-11-19 09:36 | XR_ITS ---
FINAL REPORT CLINICAL HISTORY: skilled nursing medicine usage and h/o breast ca COMPARISON: None FINDINGS: Using L1-4, the bone mineral density of the spine is 1.241 g/cm2, corresponding to T-score of 1.8, within normal range. Using the left hip, the bone mineral density of the femoral neck is 0.921 g/cm2, corresponding to a T-score of 0.6, within normal range. Using the right hip, the bone mineral density of the femoral neck is 0.940 g/cm2, corresponding to a T-score of 0.8, within normal range. NOTE: T-score: Standard deviation compared with peak bone mass of young adult mean. *Following the recommendations of the International Society of Bone densitometry, classification of hip BMD is based on the lower of two T-scores; total hip or femoral neck. IMPRESSION: Normal bone mineral density of the lumbar spine and hips. Reviewed, Interpreted and Dictated by Carlin Nina III, MD Transcribed by Lyndsey Meneses Authenticated and [facility]
== END ==
PROVIDERS: PCP Emergency Medicine; Visit Provider Internal Medicine
DX: Z79.899 Other long term (current) drug therapy (principal); C50.919 Malignant neoplasm of unspecified site of unspecified female breast
CPT/HCPCS: 77080

== ENCOUNTER → 2022-11-28 08:42 | Outpatient (CLI) | payer OTHER, SELFPAY ==
--- NOTE | 2022-11-28 08:42 | XR_ITS ---
FINAL REPORT CLINICAL HISTORY: LOW BACK PAIN, HX OF CANCER COMPARISON: None FINDINGS: AP and lateral views of the sacrum and coccyx: Two views of the sacrum and coccyx reveal retained contrast in the ureters and bladder from the patient's CT examination the same day as this exam. No evidence of fracture or dislocation is identified. IMPRESSION: Unremarkable two-view sacrum and coccyx exam. Reviewed, Interpreted and Dictated by Irvin Rankin MD Transcribed by Carol Alvarez Authenticated and [facility]
--- NOTE | 2022-11-28 08:42 | XR_ITS ---
FINAL REPORT TECHNIQUE: 5 views CLINICAL HISTORY: back pain, HX OF CANCER COMPARISON: None FINDINGS: There is no fracture present. There is no malalignment. There is retained contrast in nondilated renal collecting systems bilaterally from a CT performed the same day. There is moderate L5-S1 degenerative disc disease with facet sclerosis bilaterally and posterior osteophytes. IMPRESSION: L5-S1 degenerative disc disease with facet sclerosis and posterior osteophytes. Reviewed, Interpreted and Dictated by Irvin Rankin MD Transcribed by Carol Alvarez Authenticated and [facility]
--- NOTE | 2022-11-28 08:42 | CT_ITS ---
FINAL REPORT TECHNIQUE: After the administration of oral and intravenous contrast, axial images were obtained through the abdomen and pelvis by computed tomography. The study was performed with techniques to keep radiation dose as low as reasonably achievable, (ALARA). Individual dose reduction techniques using automated exposure control or adjustment of mA and/or kV according to the patient's size were employed. CLINICAL HISTORY: abdominal pain COMPARISON: 05/17/2022 FINDINGS: Abdomen: The lung bases are clear. The liver parenchyma is homogeneous. The gallbladder is present. The spleen, pancreas, adrenals and kidneys appear unremarkable other than some calcified splenic granulomas. The aorta is normal in caliber. There is no free fluid or adenopathy. Pelvis: The appendix is not identified. The urinary bladder is unremarkable. There is no free fluid or adenopathy. The uterus has been surgically resected. IMPRESSION: No acute intra-abdominal process. Reviewed, Interpreted and Dictated by Irvin Rankin MD Transcribed by Carol Alvarez Authenticated and [facility]
== END ==
PROVIDERS: PCP Emergency Medicine; Visit Provider Emergency Medicine
DX: R10.9 Unspecified abdominal pain (principal); M54.9 Dorsalgia, unspecified; M54.50 Low back pain, unspecified; M53.3 Sacrococcygeal disorders, not elsewhere classified
CPT/HCPCS: 72110; 72220; 74177; Q9967

== ENCOUNTER → 2023-01-15 07:38 | Outpatient (CLI) | payer OTHER, SELFPAY ==
--- NOTE | 2023-01-15 07:43 | CA_ITS ---
APPROVED REPORT EXAM: Comprehensive 2D, Doppler, and color-flow Echocardiogram Skirt Panel Assembler: Aura Brown RDCS Ht: 5 ft 9 in Wt: 291lbs BSA: 2.42 BP: 129/81 mmHg Indications: DIASTOLIC DYSFXN,CP,OBESITY,RECENT CHEMO 2D Dimensions LVOT 2.03 cm (M/F) 1.5-2.5 M-Mode Dimensions RVDd 3.17 cm (0.9-2.6) LA Diam 4.10 cm (1.9-4.0) LVDd 6.15 cm (3.5-5.7) Ao Diam 3.72 cm (2.0-3.7) LVDs 4.10 cm (3.5-5.7) IVSd 0.75 cm (0.6-1.1) PWd 0.84 cm (0.6-1.1) EF (Teich) 61.00% FS 33.30% EDV (Teich) 190.40 mL ESV (Teich) 74.20 mL LV Diastology E Decel Time 210.00 (160-240 msec) E/A Ratio 1.1 MED E' 10.10 (< 7 cm/sec) E'/MED E' Ratio 7.73 (>14) LAT E' 10.00 (<10 cm/sec) E/LAT E' Ratio 7.81 (>14) Mitral Valve MV E Max Ricardo. 78.00 (40-130 cm/s) MV A Velocity 73.00 (40-130 cm/s) E/A Ratio 1.07 MV Decel. Time 210.00 (160-240 ms) MV PHT 62.00 ms Left Ventricle The left ventricle is mildly dilated. The left ventricular systolic function is normal. The left ventricular ejection fraction is within the low normal range. There is normal left ventricular wall thickness. There is low normal LV segmental wall motion. The left ventricular diastolic function is normal. LVEF is 50%. Right Ventricle Right ventricle is mildly dilated. The right ventricular systolic function is normal. Atria The left atrium size is normal. The right atrium size is normal. There is no Doppler evidence of interatrial shunt. Aortic Valve The aortic valve opens well. There is no aortic valvular stenosis. No aortic regurgitation is present. Mitral Valve The mitral valve is normal in structure. There is trace mitral valve regurgitation noted. Tricuspid Valve The tricuspid valve leaflets are thin and pliable. Trace tricuspid regurgitation. RVSP is normal. Pulmonic Valve The pulmonary valve is normal in structure. Trace pulmonic regurgitation. Great Vessels The aortic root is normal in size. The ascending aorta is normal in size. IVC is normal in size and collapses >50% with inspiration. Pericardium There is no pericardial effusion. Other Information Study Quality: Fair Conclusion Normal biventricular systolic function. Mildly dilated RV. No significant valvular disease. Electronically signed by : Kimberly Breaux, 01/16/2023 15:47:00
--- NOTE | 2023-01-15 08:12 | XR_ITS ---
FINAL REPORT CLINICAL HISTORY: Rt hand pain FINDINGS: Right hand Three views were obtained. There is no acute fracture or dislocation. There are moderate degenerative changes of the 1st carpometacarpal joint. There is a 3 mm loose body in the lateral aspect of the carpometacarpal. Mild and moderate degenerative changes are seen elsewhere, worst involving the 3rd DIP. IMPRESSION: Degenerative changes as detailed above with a 3 mm loose body. Reviewed, Interpreted and Dictated by Carlin Nina III, MD Transcribed by Miranda Grant Authenticated and [facility]
--- NOTE | 2023-01-15 08:12 | XR_ITS ---
FINAL REPORT CLINICAL HISTORY: Lt hand pain FINDINGS: Left hand Three views were obtained. There is no acute fracture or dislocation. There are moderate degenerative changes of the 1st carpometacarpal joint. Mild degenerative changes are seen elsewhere. No soft tissue abnormality is identified. IMPRESSION: Degenerative changes as above. Reviewed, Interpreted and Dictated by Carlin Nina III, MD Transcribed by Miranda Grant Authenticated and [facility]
--- NOTE | 2023-01-15 08:12 | US_ITS ---
FINAL REPORT CLINICAL HISTORY: abdominal pain-- vomtiing-- finished chemo 07/31 for breast ca FINDINGS: Sonographic images of the right upper quadrant were obtained. The pancreas is partially obscured.The liver has an unremarkable appearance.The gallbladder appears normal without evidence of gallstones.There is no evidence of biliary ductal dilatation.The common duct measures 4mm. Limited images of the right kidney are unremarkable. IMPRESSION: Unremarkable right upper quadrant ultrasound. Reviewed, Interpreted and Dictated by Carlin Nina III, MD Transcribed by Shelia Jones Authenticated and [facility]
== END ==
PROVIDERS: PCP Emergency Medicine; Visit Provider Emergency Medicine
DX: R10.9 Unspecified abdominal pain (principal); M79.642 Pain in left hand; M79.641 Pain in right hand
CPT/HCPCS: 73130; 76705; 93306

== ENCOUNTER 2023-02-03 06:28 | Day surgery (SDC) | payer OTHER, SELFPAY ==
[2023-01-30 17:22] VITALS: BMI 42.8
[2023-02-03 06:50] VITALS: BP 118/70; PULSE 76; RESP 18; TEMP 36.3; O2SAT 93
--- NOTE | 2023-02-03 07:02 | HMH.SCOPE ---
Procedure: Date: 02/03/23 Patient Date of :: 1965 Procedure Performed:: Colonoscopy Indications:: Remote history of colon polyps Performing Provider:: Glen Levin MD Referring Provider:: . Sedation:: Monitored anesthesia care Procedure:: After informed consent was obtained the patient was taken to the endoscopy suite. Sedation ensued after the patient was transferred to the left lateral decubitus position. Pulse, blood pressure, and oxygen saturation were monitored throughout the procedure. Digital rectal exam revealed no significant abnormality. The colonoscope was placed in position. The entire colon was evaluated. The colonoscope was carefully removed and the patient was transferred to recovery in stable condition. Please see findings and specimens below for detail. Findings:: Bowel preparation fairly poor Fairly profound spasticity/lack of relaxation Fairly profound tortuosity (specifically sigmoid colon) Mild pandiverticulosis Polyps (see specimens) Specimens:: Lobulated transverse colon polyp (cold snare) Sessile splenic flexure polyp (cold snare) Recommendations:: Timing of repeat colonoscopy is pending pathology will likely be around 1-2 years with extended/alternate bowel preparation. Consider barium enema secondary to fairly severe tortuosity/lack of relaxation. Complications:: No immediate Estimated blood obtained (mL): 1 Colonoscopy Component Colonoscopy Component Was a colonoscopy performed during today's procedure?: Yes Recommended follow up colonoscopy of at least 10 years?: No If no, follow up colonoscopy recommended in ___ years?: 1-2 Reason for not recommending >/= 10 yr follow-up interval?: History of polyps; limited bowel preparation; tortuosity; spasticity
--- NOTE | 2023-02-03 07:14 | P.PNANES_ITS ---
[facility] Disclaimer: The information contained in this section may have been updated after the patient was seen, as this information can be updated by other users. Medical History Abdominal pain Abnormal EKG Allergic rhinitis Asthma Chest pain Dizziness Dyspnea Dyspnea on exertion Elevated left ventricular end-diastolic pressure (LVEDP) Implantable loop recorder present Mild persistent asthma Multiple lung nodules on CT Obesity Other ill-defined heart diseases Pulmonary nodules Stopped smoking with greater than 20 pack year history Vitamin D deficiency Surgical History History of colonoscopy History of hysterectomy for cancer History of left breast biopsy Family History Other Family history of cancer Social History Smoking Status: Never smoker alcohol intake: never substance use type: denies use current occupational status: employed Travel in the last 8 weeks: [facility] household members: none housing: [facility] 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 current occupational exposures/hazards: No caffeine: Yes [facility] Anesthesia Checklist Patient Identification Patient Identification: Arm Band and Verbal (Name & ) Structural Data Admitted From: Home Planned Operative Procedure/s: colonoscopy Consent for Planned Operative Procedure(s) Verified: Yes Verified Documents: Surgical Consent NPO Status Verified Time NPO: 02:30 Additional verifications Anesthesia Reactions: No Hx Blood Transfusions: No Blood Transfusion Reaction: No Airway Assessment Mallampati Score:: Class II C-Spine Mobility Assessed: Yes TMJ Mobility Assessed: Yes Dentition: Good Dentition Neurological Assessment Level of Consciousness: Awake and Alert Anesthesia Plan Anesthesia Risk discussed: Yes ASA Class: III Anesthesia Type: IV sedation
[2023-02-03 07:34] VITALS: O2SAT 96
[2023-02-03 08:15] VITALS: BP 91/44; PULSE 71; RESP 14; TEMP 36.1; O2SAT 96
[2023-02-03 08:25] VITALS: BP 93/50; PULSE 73; RESP 17; TEMP 36.1; O2SAT 96
[2023-02-03 08:35] VITALS: BP 95/53; PULSE 66; RESP 16; TEMP 36.1; O2SAT 95
[2023-02-03 08:45] VITALS: BP 102/63; PULSE 60; RESP 16; TEMP 36.1; O2SAT 95
== END 2023-02-03 08:52 | disposition home or self-care (01) ==
PROVIDERS: PCP Emergency Medicine; Visit Provider Surgery
PROC: 0DJD8ZZ Inspection of Lower Intestinal Tract, Via Natural or Artificial Opening Endoscopic (ICD-10-PCS; CPT 45385; principal; 2023-02-03 07:30)
DX: Z12.11 Encounter for screening for malignant neoplasm of colon (principal); Z86.010 Personal history of colon polyps; D12.3 Benign neoplasm of transverse colon; K56.2 Volvulus
CPT/HCPCS: 45385; J2704

== ENCOUNTER → 2023-02-26 16:02 | Outpatient (CLI) | payer OTHER, SELFPAY ==
[2023-02-26 13:44] LABS: Anion Gap 12.9 mEq/L (5-15); Blood Urea Nitrogen 12 mg/dl (7-17); Carbon Dioxide 27 mmol/L (22.0-30.0); Chloride 106 mmol/L (98-107); Estimated Glomerular Filt Rate 87 ml/min (>60); GFR (African American) 105 ML/MIN (>60); Glucose 103 mg/dl (74-100); Potassium 4.9 mmoL/L (3.5-5.1); Sodium 141 mmol/L (136-145)
[2023-02-26 13:58] LABS: 25-OH Vitamin D, Total 65.9 ng/mL (30-100)
== END ==
PROVIDERS: PCP Internal Medicine; Visit Provider Internal Medicine
DX: E55.9 Vitamin D deficiency, unspecified (principal); N39.0 Urinary tract infection, site not specified; E66.9 Obesity, unspecified; Z68.41 Body mass index [BMI] 40.0-44.9, adult
CPT/HCPCS: 80048; 82306; 84443; 87086

== ENCOUNTER 2023-03-17 15:41 | Emergency (ER) | payer OTHER, SELFPAY ==
--- NOTE | 2023-03-17 15:41 | ECG_ITS ---
APPROVED REPORT Exam: Resting ECG HR:84 bpm ECG Measurements Heart Rate 84 AXES AZ 158 P 68 QRSd 84 QRS -27 QT 370 T 28 QTc 411 Conclusion SINUS RHYTHM LOW QRS VOLTAGE IN PRECORDIAL LEADS with LAD and late R wave progression BORDERLINE ECG UNCONFIRMED REPORT Electronically signed by : Seb Gerardo MD 03/21/2023 11:10:05
[2023-03-17 15:42] VITALS: BP 145/83; PULSE 63; RESP 18; TEMP 36.3; O2SAT 96; BMI 42.5
--- NOTE | 2023-03-17 15:52 | XR_ITS ---
FINAL REPORT CLINICAL HISTORY: SOA, weakness COMPARISON: 01/31/2021 FINDINGS: Two views of the chest were obtained. A right-sided chest port is present. There is a loop recorder. The heart size and pulmonary vascularity are within normal limits. The mediastinum is normal. No acute pulmonary abnormality is identified. There is no pneumothorax. The bony thorax is intact. IMPRESSION: No active cardiopulmonary disease. Reviewed, Interpreted and Dictated by Carlin Nina III, MD Transcribed by Fatmata Tran Authenticated and [facility]
[2023-03-17 16:02] LABS: Basophils % 0.5 % (0.1-2.0); Eosinophils # 0.2 K/mm3 (0.0-0.4); Eosinophils % 2.9 % (0.1-12.0); Hematocrit 40.3 % (37.0-47.0); Hemoglobin 13.9 g/dL (12.2-16.2); Lymphocytes # 2.1 K/mm3 (0.7-4.5); Lymphocytes % 28.4 % (10-50); Mean Corpuscular HGB Conc 34.6 g/dL (31.8-35.4); Mean Corpuscular Hemoglobin 32.3 pg (27.0-31.2); Mean Corpuscular Volume 93.2 fl (81-99); Mean Platelet Volume 7.3 fl (7.4-10.4); Monocytes # 0.3 K/mm3 (0.1-1.0); Monocytes % 4.3 % (1.7-9.3); Neutrophils # 4.8 K/mm3 (1.8-7.8); Platelet Count 287 K/mm3 (142-424); Red Blood Count 4.32 M/mm3 (4.20-5.40); White Blood Count 7.6 K/mm3 (4.8-10.8)
[2023-03-17 16:09] LABS: Chloride 106 mmol/L (98-107); Potassium 4.3 mmoL/L (3.5-5.1); Sodium 139 mmol/L (136-145)
[2023-03-17 16:11] LABS: Blood Urea Nitrogen 16 mg/dl (7-17)
[2023-03-17 16:12] LABS: Alanine Aminotransferase 28 U/L (12-78); Albumin/Globulin Ratio 1.3 (1.1-1.8); Alkaline Phosphatase 77 U/L (38-126); Anion Gap 10.3 mEq/L (5-15); Aspartate Amino Transferase 35 U/L (14-36); Bilirubin,Total 0.4 mg/dl (0.2-1.3); Calcium 8.9 mg/dl (8.4-10.2); Carbon Dioxide 27 mmol/L (22.0-30.0); Creatinine Clearance Estimated 95 mL/min (50-200); Estimated Glomerular Filt Rate 87 ml/min (>60); GFR (African American) 105 ML/MIN (>60); Glucose 101 mg/dl (74-100)
[2023-03-17 16:25] LABS: NT Pro Brain Natriuretic Pep. 176 pg/mL (0-125)
[2023-03-17 16:28] LABS: Troponin I < 0.01 ng/ml (0.00-0.034)
[2023-03-17 16:31] VITALS: BP 116/77; PULSE 76; RESP 22; O2SAT 96
[2023-03-17 16:32] LABS: T4 (Thyroxine) 9.5 ug/dl (5.53-11.0)
[2023-03-17 16:46] LABS: Thyroid Stimulating Hormone 1.51 uIU/mL (0.465-4.68)
--- NOTE | 2023-03-17 16:59 | CT_ITS ---
PROCEDURE INFORMATION: Exam: CTA Chest With Contrast Exam date and time: 03/17/2023 5:30 PM Age: 57 years old Clinical indication: Abnormal findings; Abnormal diagnostic tests; Elevated d-dimer; Additional info: SOA, presyncope, elevated dimer TECHNIQUE: Imaging protocol: Computed tomographic angiography of the chest with contrast. Exam focused on the arteries. 3D rendering (Not supervised by radiologist): MIP and/or 3D reconstructed images were created by the technologist. Radiation optimization: All CT scans at this facility use at least one of these dose optimization techniques: automated exposure control; mA and/or kV adjustment per patient size (includes targeted exams where dose is matched to clinical indication); or iterative reconstruction. Contrast material: ISOVUE 370; Contrast volume: 70 ml; Contrast route: INTRAVENOUS (IV); REPORTING DATA: Count of CT and Cardiac NM exams in prior 12 months: This patient has received 4 known CTs and 0 known cardiac nuclear medicine studies in the 12 months prior to the current study. COMPARISON: CT CHEST W CON 11/12/2022 9:45 AM FINDINGS: Tubes, catheters and devices: Left chest wall cardiac loop recorder. Pulmonary arteries: Normal. No pulmonary emboli. Great vessels off aortic arch: Redemonstration of an aberrant right subclavian artery with retroesophageal course. Aorta: Unremarkable. No aortic aneurysm. No aortic dissection. Lungs: No focal airspace consolidation. Stable pulmonary micro nodules largest of which measures 4 mm within the right middle lobe. Pleural spaces: Unremarkable. No pneumothorax. No pleural effusion. Heart: Unremarkable. No cardiomegaly. No pericardial effusion. Coronary arteries: No significant coronary artery calcifications. Lymph nodes: Small subcarinal and right hilar calcified lymph nodes. Spleen: Small splenic calcifications. Bones/joints: Mild degenerative changes. No acute fracture. Soft tissues: Left outer breast surgical clips. IMPRESSION: No pulmonary artery embolism.
--- NOTE | 2023-03-17 17:00 | PC.NURSE ---
ambulated pt around ER, sat 92-98% on room air and HR 70-80s. MD notified.
--- NOTE | 2023-03-17 17:13 | HMH.EDGENADL ---
Discharge Plan Disposition Patient Disposition: Home, Self-Care Condition: Good Prescriptions Prescriptions: No Action gabapentin 300 mg capsule 300 mg PO BID gabapentin 600 mg tablet 600 mg PO TID Qty: 90 2RF Rx Instructions: INitially take one table BID x 7 days then increase to TID. amoxicillin-pot clavulanate [Augmentin] 500-125 mg tablet 1 tab PO BID 10 Days Qty: 20 0RF buspirone 5 mg tablet 5 mg PO BID Qty: 60 2RF loratadine 10 mg tablet See Rx Instructions .ROUTE .COMPLEX Qty: 30 0RF Dose Instruction: TAKE ONE TABLET BY MOUTH ONCE A DAY NEEDED FOR ALLERGY SYMPTOMS Rx Instructions: TAKE ONE TABLET BY MOUTH ONCE A DAY NEEDED FOR ALLERGY SYMPTOMS cholecalciferol (vitamin D3) 125 mcg (5,000 unit) capsule See Rx Instructions .ROUTE .COMPLEX Qty: 30 0RF Dose Instruction: TAKE ONE CAPSULE BY MOUTH ONCE A DAY FOR SUPPLEMENT Rx Instructions: TAKE ONE CAPSULE BY MOUTH ONCE A DAY FOR SUPPLEMENT montelukast 10 mg tablet See Rx Instructions .ROUTE .COMPLEX Qty: 30 0RF Dose Instruction: TAKE ONE TABLET BY MOUTH AT BEDTIME FOR ASTHMA Rx Instructions: TAKE ONE TABLET BY MOUTH AT BEDTIME FOR ASTHMA ergocalciferol (vitamin D2) 1,250 mcg (50,000 unit) capsule See Rx Instructions .ROUTE .COMPLEX Qty: 4 0RF Dose Instruction: TAKE ONE CAPSULE BY MOUTH EVERY WEEK FOR SUPPLEMENT Rx Instructions: TAKE ONE CAPSULE BY MOUTH EVERY WEEK FOR SUPPLEMENT phentermine [Adipex-P] 37.5 mg tablet 37.5 mg PO DAILY Qty: 30 0RF Rx Instructions: must administer 30 minutes before or 1-2 hours after breakfast celecoxib 200 mg capsule See Rx Instructions .ROUTE .COMPLEX Rx Instructions: TAKE 2 CAPSULES BY MOUTH ONCE A DAY spironolactone 25 mg tablet 25 mg PO DAILY levothyroxine 50 mcg tablet See Rx Instructions .ROUTE .COMPLEX Rx Instructions: TAKE ONE TABLET BY MOUTH ONCE A DAY zolpidem [Ambien] 5 mg tablet 5 mg PO HS furosemide [Lasix] 20 mg tablet 20 mg PO DAILY albuterol sulfate 90 mcg/actuation HFA aerosol inhaler See Rx Instructions .ROUTE .COMPLEX Rx Instructions: INHALE 2 PUFFS BY MOUTH EVERY 6 HOURS NEEDED FOR SHORTNESS OF BREATH fluticasone propionate 50 mcg/actuation spray,suspension See Rx Instructions .ROUTE .COMPLEX Rx Instructions: USE 1 SPRAY IN EACH NOSTRIL ONCE A DAY duloxetine 60 mg capsule,delayed release(DR/EC) See Rx Instructions .ROUTE .COMPLEX Rx Instructions: TAKE ONE CAPSULE BY MOUTH ONCE A DAY FOR DEPRESSION Referrals Follow up/Referrals: Ck Tapia DO [Primary Care Provider] - See instructions Activity Restrictions/Add. Instructions Additional Instructions/Restrictions: You were evaluated in the emergency department today. 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 Return to the emergency department for new or worsening symptoms. Clinical Impressions Clinical Impression: Shortness of breath, Irregular heart rate Instructions Patient Instructions: DI for Shortness of Breath Discharge ED Provider: Olga Rangel General Adult HPI General Chief complaint: Shortness of Breath/Dyspnea Stated complaint: SOA, HR ISSUES 38-160s, LOOP RECORDER FAILED Time Seen by Provider: 03/17/23 15:46 Mode of Arrival: Ambulatory Source of Information: Patient Limitations: No Limitations Description of Symptoms (Recalled from ER Triage Doc. by RN): Patient reports getting in her car and being short of breath and having a heart rate in the low 60s. States she called her PCP who instructed her to come to the emergency room for evaluation. Patient states she does have a loop recorder that is not recording. Denies chest pain at this time. History of Present Illness HPI narrative: This patient is a 57-year-old female with a history of breast cancer status postchemotherapy completed in Jul
--- NOTE | 2023-03-17 18:30 | PC.NURSE ---
respiratory at bs placing holter
[2023-03-17 18:43] LABS: Coronavirus 19, PCR Not Detected (NotDetected); Influenza A, PCR Not Detected (NotDetected); Influenza B, PCR Not Detected (NotDetected)
[2023-03-17 18:47] VITALS: BP 116/77; PULSE 76; RESP 22; TEMP 36.3; O2SAT 96
== END 2023-03-17 18:48 | disposition home or self-care (01) ==
PROVIDERS: Emergency Provider Emergency Medicine; PCP Internal Medicine
DX: R06.02 Shortness of breath (principal); I49.9 Cardiac arrhythmia, unspecified; I11.0 Hypertensive heart disease with heart failure; I50.30 Unspecified diastolic (congestive) heart failure; F17.210 Nicotine dependence, cigarettes, uncomplicated; J45.909 Unspecified asthma, uncomplicated; E55.9 Vitamin D deficiency, unspecified; E66.9 Obesity, unspecified; Z95.818 Presence of other cardiac implants and grafts
CPT/HCPCS: 71046; 71275; 80053; 83880; 84436; 84443; 84484; 85025; 85378; 87636; 93005; 93225; 99285; Q9967

== ENCOUNTER → 2023-03-31 14:24 | Outpatient (CLI) | payer OTHER, SELFPAY ==
--- NOTE | 2023-03-31 14:26 | MM_ITS ---
PROCEDURE INFORMATION: Exam: MG Bilateral Screening 3D Mammography Exam date and time: 03/31/2023 2:15 PM Age: 57 years old Clinical indication: Screening examination. Personal history of left breast cancer, s/p left lumpectomy and chemotherapy. TECHNIQUE: Imaging protocol: Bilateral Screening tomosynthesis and 2D mammography including computer-aided detection (CAD) when performed. COMPARISON: 1. MG MM DIG MAMM DX UNILAT LT CAD 08/06/2022 1:56 PM 2. MG MM CLIP PLACEMENT LT 02/25/2022 9:38 AM 3. MG MM DIG MAMM BI DX W/CAD 02/13/2022 10:15 AM FINDINGS: MAMMOGRAPHY: Breast composition: There are scattered areas of fibroglandular density. Mass: None. Architectural distortion: Interval left lumpectomy with architectural distortion, deformity, and surgical clips in the upper outer quadrant. Calcifications: No suspicious calcifications. Asymmetric density: None. Skin thickening: None. Axillary adenopathy: None. Other: Loop recorder in the left upper inner quadrant, limits evaluation and accentuates the importance of clinical breast exam. IMPRESSION: No mammographic evidence of malignancy. Annual screening is recommended unless otherwise clinically indicated. ASSESSMENT: BI-RADS Category 2: Benign
== END ==
LOC: RAD 14:24
PROVIDERS: PCP Internal Medicine; Visit Provider Internal Medicine Hematology & Oncology
DX: Z12.31 Encounter for screening mammogram for malignant neoplasm of breast (principal); Z85.3 Personal history of malignant neoplasm of breast
CPT/HCPCS: 77063; 77067

== ENCOUNTER → 2023-05-04 13:37 | Outpatient (CLI) | payer OTHER, SELFPAY ==
--- NOTE | 2023-05-04 13:43 | CT_ITS ---
FINAL REPORT TECHNIQUE: Axial images through the chest was performed by computed tomography. Sagittal and coronal reformatted images were obtained and reviewed. CLINICAL HISTORY: LUNG NODULES COMPARISON: 03/17/2023 FINDINGS: There is a 4 mm right middle lobe nodule on image 56, unchanged. No new pulmonary lesion is identified. There is an aberrant right subclavian artery. No pleural or pericardial effusion is seen . No adenopathy or mass lesion is present . IMPRESSION: 1. Stable right middle lobe nodule. Recommend continued follow-up in 12 months. This study was performed using automated techniques to achieve radiation exposure as low as reasonably achievable Reviewed, Interpreted and Dictated by Zurdo Arita MD Transcribed by Miranda Grant Authenticated and . [facility]
== END ==
PROVIDERS: PCP Emergency Medicine; Visit Provider Internal Medicine Hematology & Oncology
DX: R91.8 Other nonspecific abnormal finding of lung field (principal)
CPT/HCPCS: 71250

== ENCOUNTER 2023-05-05 21:20 | Emergency (ER) | payer OTHER, SELFPAY ==
[2023-05-05 21:24] VITALS: BP 126/79; PULSE 94; RESP 18; TEMP 36.7; O2SAT 96; BMI 39.9
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
[2023-05-05 23:52] VITALS: BP 178/72; PULSE 78; RESP 16; TEMP 36.7; O2SAT 98
== END 2023-05-05 23:54 | disposition home or self-care (01) ==
PROVIDERS: Emergency Provider Emergency Medicine; PCP Internal Medicine
DX: S13.4XXA Sprain of ligaments of cervical spine, initial encounter (principal); M25.551 Pain in right hip; M54.50 Low back pain, unspecified; S70.10XA Contusion of unspecified thigh, initial encounter; F17.210 Nicotine dependence, cigarettes, uncomplicated; J45.909 Unspecified asthma, uncomplicated; R91.8 Other nonspecific abnormal finding of lung field; V49.40XA Driver injured in collision with unspecified motor vehicles in traffic accident, initial encounter; Y92.410 Unspecified street and highway as the place of occurrence of the external cause
CPT/HCPCS: 70450; 71250; 72125; 72128; 72131; 73502; 73552; 74176; 99285

== ENCOUNTER → 2023-05-28 14:00 | Outpatient (CLI) | payer OTHER, SELFPAY ==
--- NOTE | 2023-05-28 14:05 | XR_ITS ---
FINAL REPORT CLINICAL HISTORY: R Elbow pain COMPARISON: None FINDINGS: Four views of the right elbow were obtained. There is no acute fracture or dislocation. There are mild hypertrophic changes of the medial joint margin. There is no acute soft tissue abnormality. IMPRESSION: Mild hypertrophic changes without acute abnormality. Reviewed, Interpreted and Dictated by Irvin Rankin MD Transcribed by Lyndsey Meneses Authenticated and [facility]
== END ==
PROVIDERS: PCP Nurse Practitioner Family; Visit Provider Nurse Practitioner Family
DX: M25.521 Pain in right elbow (principal)
CPT/HCPCS: 73080

== ENCOUNTER 2023-06-30 10:59 | Outpatient (RCR) | payer OTHER, SELFPAY ==
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
== END 2023-06-30 12:00 | disposition home or self-care (01) ==
LOC: OT 10:59
PROVIDERS: Visit Provider Nurse Practitioner Family
DX: M25.521 Pain in right elbow (principal)
CPT/HCPCS: 97010; 97014; 97165; G0283

== ENCOUNTER 2023-06-30 11:59 | Outpatient (CLI) | payer OTHER, SELFPAY ==
[2023-06-30 13:15] LABS: Amphetamine/Metha Screen,Urine Negative ng/ml (<1000)
[2023-06-30 13:16] LABS: Barbiturates Screen,Urine Negative ng/ml (<200)
[2023-06-30 13:17] LABS: Benzodiazepines Screen,Urine Negative ng/ml (<200)
[2023-06-30 13:18] LABS: Cannabinoid Screen,Urine Negative ng/ml (<50); Cocaine Screen,Urine Negative ng/ml (<300)
[2023-06-30 13:19] LABS: Methadone Screen,Urine Negative ng/ml (<300)
[2023-06-30 13:20] LABS: Opiate Screen,Urine Negative ng/ml (<300)
[2023-06-30 13:21] LABS: Phencyclidine Screen,Urine Negative ng/ml (<25)
[2023-07-09 09:22] LABS: Gabapentin,Urine 66.5 ug/mL (.)
== END 2023-06-30 23:59 ==
PROVIDERS: PCP Nurse Practitioner Family; Visit Provider Nurse Practitioner Family
DX: Z79.899 Other long term (current) drug therapy (principal); N39.0 Urinary tract infection, site not specified
CPT/HCPCS: 80307; 87086

== ENCOUNTER 2023-07-08 20:46 | Outpatient (CLI) | payer OTHER, SELFPAY | END 2023-07-08 23:59 | LOC: LAB.DROPOF 20:48 | PROVIDERS: PCP Nurse Practitioner Family; Visit Provider Nurse Practitioner Family | DX: N39.0 Urinary tract infection, site not specified (principal) | CPT/HCPCS: 87086 ==

== ENCOUNTER → 2023-08-12 14:10 | Outpatient (CLI) | payer OTHER, SELFPAY | LOC: SL 14:11 | PROVIDERS: PCP Nurse Practitioner Family; Visit Provider Nurse Practitioner Family | DX: G47.30 Sleep apnea, unspecified (principal); R06.83 Snoring | CPT/HCPCS: G0399 ==

== ENCOUNTER 2023-08-24 17:25 | Emergency (ER) | payer OTHER, SELFPAY ==
[2023-08-24 18:30] VITALS: BP 118/73; PULSE 99; RESP 18; TEMP 36.9; O2SAT 96; BMI 34.2
--- NOTE | 2023-08-24 18:40 | ED_ITS ---
Discharge Plan Disposition Patient Disposition: Home, Self-Care Condition: Good Prescriptions Prescriptions: New amoxicillin 875 mg tablet 875 mg PO Q12H Qty: 20 0RF benzonatate 100 mg capsule 100 mg PO TIDP PRN (Reason: Cough) Qty: 30 0RF methylprednisolone 4 mg Tablets,Dose Pack 4 mg PO DIRECTED 6 Days Qty: 21 0RF Rx Instructions: Take 1 pack as directed for 6 days No Action bupropion HCl 75 mg tablet See Rx Instructions .ROUTE .COMPLEX Qty: 180 3RF Dose Instruction: TAKE ONE TABLET BY MOUTH 2 TIMES A DAY Rx Instructions: TAKE ONE TABLET BY MOUTH 2 TIMES A DAY buspirone 5 mg tablet 5 mg PO DAILY Qty: 60 2RF gabapentin 600 mg tablet 600 mg PO TID Qty: 90 2RF Rx Instructions: INitially take one table BID x 7 days then increase to TID. anastrozole 1 mg tablet PO Mounjaro 2.5 mg/0.5 mL pen injector 2.5 mg SQ WEEKLY 28 Days Qty: 2 0RF spironolactone 25 mg tablet 25 mg PO DAILY Qty: 30 2RF fluticasone propionate 50 mcg/actuation spray,suspension See Rx Instructions .ROUTE .COMPLEX Qty: 16 0RF Dose Instruction: USE 1 SPRAY IN EACH NOSTRIL ONCE A DAY Rx Instructions: USE 1 SPRAY IN EACH NOSTRIL ONCE A DAY sulfamethoxazole-trimethoprim [Bactrim DS] 800-160 mg tablet 1 tab PO BID 10 Days Qty: 20 0RF montelukast 10 mg tablet See Rx Instructions .ROUTE .COMPLEX Qty: 30 0RF Dose Instruction: TAKE ONE TABLET BY MOUTH AT BEDTIME FOR ASTHMA Rx Instructions: TAKE ONE TABLET BY MOUTH AT BEDTIME FOR ASTHMA zolpidem 5 mg tablet 5 mg PO HS Qty: 30 2RF Wegovy 0.25 mg/0.5 mL pen injector 0.25 mg SQ WEEKLY Qty: 2 3RF Rx Instructions: administer weeks 1 through 4 of therapy cholecalciferol (vitamin D3) 125 mcg (5,000 unit) capsule See Rx Instructions .ROUTE .COMPLEX Qty: 30 0RF Dose Instruction: TAKE ONE CAPSULE BY MOUTH ONCE A DAY FOR SUPPLEMENT Rx Instructions: TAKE ONE CAPSULE BY MOUTH ONCE A DAY FOR SUPPLEMENT loratadine 10 mg tablet See Rx Instructions .ROUTE .COMPLEX Qty: 30 0RF Dose Instruction: TAKE ONE TABLET BY MOUTH ONCE A DAY NEEDED FOR ALLERGY SYMPTOMS Rx Instructions: TAKE ONE TABLET BY MOUTH ONCE A DAY NEEDED FOR ALLERGY SYMPTOMS albuterol sulfate 90 mcg/actuation HFA aerosol inhaler See Rx Instructions .ROUTE .COMPLEX Qty: 18 0RF Dose Instruction: INHALE 2 PUFFS BY MOUTH EVERY 6 HOURS NEEDED FOR SHORTNESS OF BREATH Rx Instructions: INHALE 2 PUFFS BY MOUTH EVERY 6 HOURS NEEDED FOR SHORTNESS OF BREATH ergocalciferol (vitamin D2) 1,250 mcg (50,000 unit) capsule See Rx Instructions .ROUTE .COMPLEX Qty: 4 0RF Dose Instruction: TAKE ONE CAPSULE BY MOUTH EVERY WEEK FOR SUPPLEMENT Rx Instructions: TAKE ONE CAPSULE BY MOUTH EVERY WEEK FOR SUPPLEMENT cyclobenzaprine 10 mg tablet See Rx Instructions .ROUTE .COMPLEX Qty: 60 0RF Dose Instruction: TAKE ONE TABLET BY MOUTH 3 TIMES A DAY NEEDED FOR MUSCLE SPASMS Rx Instructions: TAKE ONE TABLET BY MOUTH 3 TIMES A DAY NEEDED FOR MUSCLE SPASMS duloxetine 60 mg capsule,delayed release(DR/EC) See Rx Instructions .ROUTE .COMPLEX Qty: 30 0RF Dose Instruction: TAKE ONE CAPSULE BY MOUTH ONCE A DAY FOR DEPRESSION Rx Instructions: TAKE ONE CAPSULE BY MOUTH ONCE A DAY FOR DEPRESSION furosemide 20 mg tablet See Rx Instructions .ROUTE .COMPLEX Qty: 30 0RF Dose Instruction: TAKE ONE TABLET BY MOUTH ONCE A DAY Rx Instructions: TAKE ONE TABLET BY MOUTH ONCE A DAY celecoxib 200 mg capsule See Rx Instructions .ROUTE .COMPLEX Qty: 60 0RF Dose Instruction: TAKE 2 CAPSULES BY MOUTH ONCE A DAY Rx Instructions: TAKE 2 CAPSULES BY MOUTH ONCE A DAY levothyroxine 50 mcg tablet See Rx Instructions .ROUTE .COMPLEX Qty: 30 0RF Dose Instruction: TAKE ONE TABLET BY MOUTH ONCE A DAY Rx Instructions: TAKE ONE TABLET BY MOUTH ONCE A DAY lidocaine 5 % adhesive patch,medicated 1 patch topical DAILY PRN (Reason: pain) Qty: 30 0RF Rx Instructions: leave on most painful area for up to 12 hrs Referrals Follow up/Referrals: Bartolo Mathias APRN [Primary Care Provider] - See instructions Activity Restrictions/Add. Instructions Additional Instructions/Restrictions: Drink plenty of fluids. Take tylenol or ibuprofen for pain or fever. Take the medications as directed. Follow up with your regular doctor. GO TO THE ER FOR ANY WORSENING SYMPTOMS Throw your tooth brush away and get a new one. Quarantine until you know the results of your covid-19 test. Notify your school or workplace of your results and follow their instructions regarding return to work/school. Clinical Impressions Clinical Impression: Sinusitis Discharge ED Provider: Oscar David [facility] [place] [facility] [place] General Stated complaint: itchy throat, cough, chan Time Seen by Provider: 08/24/23 18:36 History of Present Illness Provider Complaint: She states that she has had sore throat and sinus congestion for the past 3 days. Related Data Home Medications Medication Instructions Recorded Confirmed anastrozole 1 mg tablet mg PO 06/30/23 06/30/23 Previous Rx's Medication Instructions Recorded lidocaine 5 % topical patch 1 patch topical DAILY PRN pain #30 05/05/23 ea bupropion HCl 75 mg tablet See Rx Instructions .Route 05/13/23 .COMPLEX #180 tabs buspirone 5 mg tablet 5 mg PO DAILY anxiety #60 tabs 05/13/23 gabapentin 600 mg tablet 600 mg PO TID #90 tabs 05/13/23 spironolactone 25 mg tablet 25 mg PO DAILY Fluid #30 tabs 06/02/23 fluticasone propionate 50 See Rx Instructions .Route 06/30/23 mcg/actuation nasal .COMPLEX #16 grams spray,suspension tirzepatide 2.5 mg/0.5 mL 2.5 mg (0.5 mL) SQ WEEKLY 4 weeks 06/30/23 subcutaneous pen injector #2 mL (Sherita) sulfamethoxazole 800 1 tab PO BID 10 days #20 tabs 07/10/23 mg-trimethoprim 160 mg tablet (Bactrim DS) montelukast 10 mg tablet See Rx Instructions .Route 08/03/23 .COMPLEX #30 tabs zolpidem 5 mg tablet 5 mg PO HS #30 tabs 08/10/23 semaglutide (weight loss) 0.25 0.25 mg (0.5 mL) SQ WEEKLY #2 mL 08/17/23 mg/0.5 mL subcutaneous pen injector ([place]) amoxicillin 875 mg tablet 875 mg PO Q12H #20 tabs 08/24/23 benzonatate 100 mg capsule 100 mg PO TIDP PRN Cough #30 caps 08/24/23 methylprednisolone 4 mg tablets in 4 mg PO DIRECTED 6 days #21 tabs 08/24/23 a dose pack albuterol sulfate 90 mcg/actuation See Rx Instructions .Route 08/25/23 aerosol inhaler .COMPLEX #18 grams celecoxib 200 mg capsule See Rx Instructions .Route 08/25/23 .COMPLEX #60 caps cholecalciferol (vitamin D3) 125 See Rx Instructions .Route 08/25/23 mcg (5,000 unit) capsule .COMPLEX #30 caps cyclobenzaprine 10 mg tablet See Rx Instructions .Route 08/25/23 .COMPLEX #60 tabs duloxetine 60 mg capsule,delayed See Rx Instructions .Route 08/25/23 release .COMPLEX #30 caps ergocalciferol (vitamin D2) 1,250 See Rx Instructions .Route 08/25/23 mcg (50,000 unit) capsule .COMPLEX #4 caps furosemide 20 mg tablet See Rx Instructions .Route 08/25/23 .COMPLEX #30 tabs levothyroxine 50 mcg tablet See Rx Instructions .Route 08/25/23 .COMPLEX #30 tabs loratadine 10 mg tablet See Rx Instructions .Route 08/25/23 .COMPLEX #30 tabs Allergies Allergy/AdvReac Type Severity Reaction Status Date / Time codeine [CODEINE] Allergy Unknown Verified 08/24/23 18:47 [facility] Disclaimer: The information contained in this section may have been updated after the patient was seen, as this information can be updated by other users. Medical History (Updated 08/24/23 @ 19:06 by Oscar David APRN) Daytime hypersomnia Loud snoring Mild persistent asthma Implantable loop recorder present Allergic rhinitis Dyspnea on exertion Stopped smoking with greater than 20 pack year history Asthma Multiple lung nodules on CT Other ill-defined heart diseases Pulmonary nodules Elevated left ventricular end-diastolic pressure (LVEDP) Dyspnea Dizziness Abnormal EKG Obesity Chest pain Vitamin D deficiency Abdominal pain Surgical History History of colonoscopy History of left breast biopsy History of hysterectomy for cancer Family History Other Family history of cancer Social History Smoking Status: Current some day smoker tobacco type: cigarettes packs per day: 1 alcohol intake: never substance use type: denies use current occupational status: employed Travel in the last 8 weeks: [employer] the [employer] household members: none housing: condominium 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 current occupational exposures/hazards: No caffeine: Yes ROS Obtained: Yes All systems reviewed & no additional complaints except as documented Constitutional Constitutional: Reports poor appetite Eyes Eyes: Reports system reviewed and no additional complaints, except as documented ENT Ears, Nose, Mouth, and Throat: Reports as per HPI Cardiovascular Cardiovascular: Reports system reviewed and no additional complaints, except as documented and Denies chest pain Respiratory Respiratory: Denies shortness of breath, Denies chest congestion, Reports cough, Denies stridor and Denies wheezing Gastrointestinal Gastrointestingal: Reports system reviewed and no additional complaints, except as documented; Denies abdominal pain, diarrhea or vomiting Musculoskeletal Musculoskeletal: Reports system reviewed and no additional complaints, except as documented and Denies arthralgias Integumentary/Breasts Skin/Breast: Reports system reviewed and no additional complaints, except as documented and Denies rash Neurologic Neurologic: Denies paresthesias Allergic/Immunologic Allergic/Immunologic: Denies wheezing Physical Exam General General appearance: alert and in no apparent distress Eye Eye exam: Present normal appearance, PERRL and EOMI ENT ENT exam: Present mucous membranes moist and normal external ear exam Expanded ENT Exam External ear exam: Present normal external inspection TM/Canal exam: Bilateral TM: erythema and bulging Nose exam: Absent sinus tenderness Nasal speculum exam: Bilateral: normal Mouth exam: Present normal external inspection; Absent drooling Teeth exam: Present normal inspection Throat exam: Present tonsillar erythema and tonsillomegaly Neck Neck exam: Present normal inspection, full ROM and trachea midline; Absent tenderness, lymphadenopathy or thyromegaly Chest Chest inspection: Present normal inspection and symmetric chest wall rise; Absent tenderness or rash Respiratory Respiratory exam: Present normal lung sounds bilaterally; Absent respiratory distress, wheezes, stridor or accessory muscle use Cardiovascular Cardiovascular exam: Present regular rate, normal rhythm and normal heart sounds Abdominal Exam Abdominal exam: Present soft; Absent distention, tenderness, guarding, rebound or rigidity Extremities Exam Extremities exam: Present normal inspection, full ROM and normal capillary refill; Absent tenderness or calf tenderness Back Exam Back exam: Present normal inspection and full ROM; Absent tenderness Neurological Exam Neurological exam: Present alert and oriented X3 Psychiatric Psychiatric exam: Present normal affect and normal mood Skin Skin exam: Present warm, dry, intact and normal color Lymphatic Lymphatic Findings: no adenopathy Medical Decision Making Medical Records Medical records reviewed: No I reviewed the patient's medical records. Roque Inquiry Pt receiving controlled substance: No Lab Data Lab results reviewed: Yes I reviewed the patient's lab results.
[2023-08-24 18:56] LABS: UTC Strep Screen (Rapid) Negative (Negative)
[2023-08-24 19:15] VITALS: BP 118/73; PULSE 99; RESP 18; TEMP 36.9; O2SAT 96
--- NOTE | 2023-08-24 19:15 | PC.NURSE ---
Sent rapid covid/ flu to lab via tube
[2023-08-24 19:21] LABS: Coronavirus 19, PCR Not Detected (NotDetected); Influenza A, PCR Not Detected (NotDetected); Influenza B, PCR Not Detected (NotDetected)
--- NOTE | 2023-08-25 09:09 | PC.NURSE ---
Tried to call pt about test results and was unable to LM because no voice mail set up at this time.
== END 2023-08-24 19:15 | disposition home or self-care (01) ==
PROVIDERS: Emergency Provider Nurse Practitioner Family; PCP Nurse Practitioner Family
DX: J01.90 Acute sinusitis, unspecified (principal); J02.9 Acute pharyngitis, unspecified; R05.9 Cough, unspecified; R09.81 Nasal congestion; J45.30 Mild persistent asthma, uncomplicated; F17.210 Nicotine dependence, cigarettes, uncomplicated
CPT/HCPCS: 87636; 87880; 99212; 99214; G0463

== ENCOUNTER 2023-10-13 14:20 | Outpatient (CLI) | payer OTHER, SELFPAY ==
[2023-10-13 15:22] LABS: Basophils % 0.6 % (0.1-2.0); Eosinophils # 0.2 K/mm3 (0.0-0.4); Eosinophils % 2.8 % (0.1-12.0); Hematocrit 41.6 % (37.0-47.0); Lymphocytes # 2.6 K/mm3 (0.7-4.5); Mean Corpuscular HGB Conc 33.5 g/dL (31.8-35.4); Mean Corpuscular Hemoglobin 32.5 pg (27.0-31.2); Mean Platelet Volume 7.5 fl (7.4-10.4); Monocytes # 0.3 K/mm3 (0.1-1.0); Monocytes % 4.2 % (1.7-9.3); Neutrophils # 3.9 K/mm3 (1.8-7.8); Neutrophils % 55.5 % (37.0-80.0); Platelet Count 336 K/mm3 (142-424); Red Blood Count 4.29 M/mm3 (4.20-5.40); Red Cell Distribution Width 14.3 % (11.5-17.5); White Blood Count 7.1 K/mm3 (4.8-10.8)
[2023-10-13 15:55] LABS: Alanine Aminotransferase 25 U/L (12-78); Albumin Level 4.1 g/dl (3.5-5.0); Albumin/Globulin Ratio 1.5 (1.1-1.8); Alkaline Phosphatase 85 U/L (38-126); Anion Gap 11.3 mEq/L (5-15); Aspartate Amino Transferase 30 U/L (14-36); Bilirubin,Total 0.5 mg/dl (0.2-1.3); Blood Urea Nitrogen 11 mg/dl (7-17); Calcium 9.6 mg/dl (8.4-10.2); Carbon Dioxide 30 mmol/L (22.0-30.0); Chloride 103 mmol/L (98-107); Estimated Glomerular Filt Rate 65 ml/min (>60); GFR (African American) 78 ML/MIN (>60); Globulin 2.7 g/dL (1.3-3.2); Glucose 91 mg/dl (74-100); Potassium 4.3 mmoL/L (3.5-5.1); Sodium 140 mmol/L (136-145); Total Protein,Serum 6.8 g/dl (6.3-8.2)
[2023-10-15 13:11] LABS: FSH 57.5 mIU/mL (.)
== END 2023-10-13 23:59 | disposition home or self-care (01) ==
LOC: LAB 14:21
PROVIDERS: PCP Nurse Practitioner Family; Visit Provider Internal Medicine Hematology & Oncology
DX: C50.912 Malignant neoplasm of unspecified site of left female breast (principal)
CPT/HCPCS: 36415; 80053; 83001; 85025

== ENCOUNTER 2023-12-08 09:00 | Outpatient (RCR) | payer OTHER, SELFPAY ==
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
== END 2023-12-08 10:05 | disposition home or self-care (01) ==
LOC: PT 09:00
PROVIDERS: Visit Provider Nurse Practitioner Family
DX: M25.551 Pain in right hip (principal); M54.2 Cervicalgia
CPT/HCPCS: 97010; 97014; 97110; 97140; 97163; 97164; 97535; G0283

== ENCOUNTER 2023-12-08 10:00 | Outpatient (RCR) | payer OTHER, SELFPAY ==
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
--- NOTE | 2023-10-08 11:19 | HMH.RHREAS ---
Rehab Reassessment Rehab OP Re-assessment Start: 08/27/23 08:34 Freq: Status: Active Protocol: Document 10/08/23 11:10 BRODERICK (Rec: 10/08/23 11:19 AMBIKAL [id number]) E-signed By Silvia Lawson OT Rehab Re-assessment Subjective Subjective I want it to be fixed. Objective Objective Notes Pt continues to be seen weekly in order to address right elbow and shoulder. Each session pt engages in AROM, AAROM, and strengthening exercises. Pt also receives PROM manual stretching to right shoulder and elbow in all planes. Modalities are provided in order to decrease pain/inflammation. Assessment Progress Assessment Progressing as Expected Assessment Notes Pt is very inconsistent about attending therapy sessions. Pt has not attended therapy session in 24 days. Pt's AROM at right shoulder has improved significantly. However, pt's right elbow remains limited with elbow extension. Pt continues to complain of 7/10 pain at right shoulder, elbow, and neck. With patients continued limitation of right elbow extension, therapist does recommend further imaging such as MRI. Current AROM Right shoulder Flex: 170 degrees Abd: 165 degrees ER: 89 degrees IR: 65 degrees Right elbow: Flex: 135 degrees Extension: -18 degrees Sup: 90 degrees Pro: 90 degrees Patient goals met R AROM STG Shoulder: Flex: 110 degrees Abd: 140 degrees ER: 75 degrees IR: 70 degrees R AROM LTG: Shoulder: Flex: 120 degrees Abd: 150 degrees ER: 80 degrees IR: [address], 3, and 5 Goals Not Met See below Revised Goals R AROM STG Elbow Flex: 140 degrees Ext: -20 degrees R AROM LTG Elbow Flex: 145 degrees Ext: -[address], 4, and 6 LT-6 Plan Plan Continue with OT plan of care at this time. Frequency of Therapy 2'xs a week Duration of therapy 4 more weeks Time and Billing Re-Eval Time 12 Re-Eval Billing Units 1 PHYSICIAN CERTIFICATION: I certify the specified therapy services for Ana Cuenca are required, authorized, and reviewed every 30 days.
--- NOTE | 2023-11-17 10:54 | HMH.RHREAS ---
Rehab Reassessment Rehab OP Re-assessment Start: 08/27/23 08:34 Freq: Status: Active Protocol: Document 11/17/23 09:58 BRODERICK (Rec: 11/17/23 10:54 BRODERICK [id number]) E-signed By Silvia Lawson OT Rehab Re-assessment Subjective Subjective My neck and shoulder still hurt, but they have eased up. Objective Objective Notes Pt continues to be seen weekly in order to address right elbow and shoulder. Each session pt engages in AROM, AAROM, and strengthening exercises. Pt also receives PROM manual stretching to right shoulder and elbow in all planes. Modalities are provided in order to decrease pain/inflammation. Assessment Progress Assessment Progressing as Expected Assessment Notes Pt is very inconsistent about attending therapy sessions. Pt has not attended therapy session in 20 days. Pt reports she is still having pain in Neck, shoulder, and elbow, but feels it has eased up some. Pt was scheduled for an MRI at elbow, but had to leave appointment due to scheduling conflicts and has not rescheduled the MRI yet. Pt's AROM at right shoulder has improved significantly. However, pt's right elbow remains limited with elbow extension. Pt continues to complain of 7/10 pain at right shoulder, elbow, and neck at worst. Current AROM Right shoulder Flex: 170 degrees Abd: 170 degrees ER: 90 degrees IR: 69 degrees Right elbow: Flex: 38 degrees Extension: -10 degrees Sup: 90 degrees Pro: 90 degrees Patient goals met R AROM STG Shoulder: Flex: 110 degrees Abd: 140 degrees ER: 75 degrees IR: 70 degrees R AROM LTG: Shoulder: Flex: 120 degrees Abd: 150 degrees ER: 80 degrees IR: 70 degrees R AROM STG Elbow Flex: 140 degrees Ext: -[address], 3, and 5 Goals Not Met See below Revised Goals R AROM LTG Elbow Flex: 145 degrees Ext: -[address], 4, and 6 LT-6 Plan Plan Continue with OT plan of care at this time. Frequency of Therapy 2'xs a week Duration of therapy 4 more weeks Time and Billing Re-Eval Time 10 Re-Eval Billing Units 1 PHYSICIAN CERTIFICATION: I certify the specified therapy services for Ana Liebermant are required, authorized, and reviewed every 30 days.
== END 2023-12-08 11:00 | disposition home or self-care (01) ==
LOC: OT 10:00
PROVIDERS: Visit Provider Nurse Practitioner Family
DX: M25.521 Pain in right elbow (principal); M25.511 Pain in right shoulder
CPT/HCPCS: 97010; 97014; 97110; 97140; 97164; 97166; 97530; G0283

== ENCOUNTER 2024-04-21 16:04 | Outpatient (CLI) | payer OTHER, SELFPAY ==
[2024-04-21 17:04] LABS: Alanine Aminotransferase 22 U/L (12-78); Albumin Level 3.9 g/dl (3.5-5.0); Albumin/Globulin Ratio 1.6 (1.1-1.8); Alkaline Phosphatase 82 U/L (38-126); Aspartate Amino Transferase 29 U/L (14-36); Bilirubin,Total 0.5 mg/dl (0.2-1.3); Blood Urea Nitrogen 14 mg/dl (7-17); Calcium 9.2 mg/dl (8.4-10.2); Carbon Dioxide 27 mmol/L (22.0-30.0); Chloride 107 mmol/L (98-107); Estimated Glomerular Filt Rate 87 ml/min (>60); GFR (African American) 105 ML/MIN (>60); Globulin 2.5 g/dL (1.3-3.2); Glucose 91 mg/dl (74-100); Sodium 141 mmol/L (136-145); Total Protein,Serum 6.4 g/dl (6.3-8.2)
[2024-04-21 17:24] LABS: Basophils # 0.1 K/mm3 (0-0.2); Basophils % 0.6 % (0.1-2.0); Eosinophils # 0.3 K/mm3 (0.0-0.4); Hematocrit 38.7 % (37.0-47.0); Hemoglobin 13.2 g/dL (12.2-16.2); Lymphocytes # 3.3 K/mm3 (0.7-4.5); Lymphocytes % 36.1 % (10-50); Mean Corpuscular HGB Conc 34.2 g/dL (31.8-35.4); Mean Corpuscular Hemoglobin 31.9 pg (27.0-31.2); Mean Corpuscular Volume 93.3 fl (81-99); Mean Platelet Volume 7.7 fl (7.4-10.4); Monocytes # 0.4 K/mm3 (0.1-1.0); Monocytes % 4.3 % (1.7-9.3); Neutrophils # 5.1 K/mm3 (1.8-7.8); Neutrophils % 56.1 % (37.0-80.0); Platelet Count 321 K/mm3 (142-424); Red Blood Count 4.15 M/mm3 (4.20-5.40); White Blood Count 9.1 K/mm3 (4.8-10.8)
== END 2024-04-21 23:59 | disposition home or self-care (01) ==
LOC: LAB 16:06
PROVIDERS: PCP Nurse Practitioner Family; Visit Provider Internal Medicine Hematology & Oncology
DX: C50.912 Malignant neoplasm of unspecified site of left female breast (principal)
CPT/HCPCS: 36415; 80053; 85025

== ENCOUNTER 2024-05-26 15:31 | Outpatient (CLI) | payer OTHER, SELFPAY ==
--- NOTE | 2024-05-26 15:41 | CT_ITS ---
FINAL REPORT TECHNIQUE: Axial CT without IV contrast administration. Coronal and sagittal reconstructions were obtained and reviewed. This study was performed with techniques to keep radiation doses as low as reasonably achievable, (ALARA). Individualized dose reduction techniques using automated exposure control or adjustment of mA and/or kV according to the patient''s size were employed. CLINICAL HISTORY: LUNG NODULES COMPARISON: 05/05/2023 FINDINGS: No acute lung disease is present. There is a 4 mm nodule on image 65 of series 2 located in the anterior right middle lobe which is unchanged. The remaining lungs are clear. No pleural or pericardial effusion is seen. No adenopathy or mass lesion is present. IMPRESSION: Stable appearance of a benign appearing right middle lobe nodule. Consider 12-month follow-up. Reviewed, Interpreted and Dictated by Zurdo Arita MD Transcribed by Lyndsey Meneses Authenticated and [facility]
== END 2024-05-26 23:59 | disposition home or self-care (01) ==
LOC: RAD 15:33
PROVIDERS: PCP Nurse Practitioner Family; Visit Provider Internal Medicine Hematology & Oncology
DX: R91.8 Other nonspecific abnormal finding of lung field (principal)
CPT/HCPCS: 71250

== ENCOUNTER 2024-05-27 11:26 | Outpatient (CLI) | payer OTHER, SELFPAY ==
--- NOTE | 2024-05-27 11:31 | XR_ITS ---
FINAL REPORT CLINICAL HISTORY: pain; possible lupus COMPARISON: 01/15/2023 FINDINGS: RIGHT HAND Three views were obtained. There is no evidence of acute displaced fracture or or dislocation of the visualized bony architecture. There are moderate diffuse degenerative changes, greatest of the DIP and PIP joints as well as the first carpometacarpal joint. There are changes of generalized osteopenia. No erosion is noted. IMPRESSION: Osteoarthritic changes without significant progression. No new abnormality. Reviewed, Interpreted and Dictated by Zurdo Arita MD Transcribed by Bessie Chavez Authenticated and [facility]
--- NOTE | 2024-05-27 11:31 | XR_ITS ---
FINAL REPORT CLINICAL HISTORY: hand numbness; possible lupus COMPARISON: None FINDINGS: 3 views of the cervical spine were obtained. No fracture is present. Alignment is normal. There is severe degenerative disc disease at C5-6 and C6-7. There is moderate degenerative disc disease at the other levels. There is advanced facet arthropathy mid cervical spine. No prevertebral soft tissues swelling. IMPRESSION: Advanced degenerative changes. Reviewed, Interpreted and Dictated by Zurdo Arita MD Transcribed by Bessie Chavez Authenticated and [facility]
--- NOTE | 2024-05-27 11:31 | XR_ITS ---
FINAL REPORT CLINICAL HISTORY: joint pain; possible lupus COMPARISON: 01/15/2023 FINDINGS: LEFT HAND Three views were obtained. There is no evidence of acute displaced fracture or or dislocation of the visualized bony architecture. There are moderate diffuse degenerative changes, greatest of the DIP and PIP joints as well as the first carpometacarpal joint. There are changes of generalized osteopenia. No erosion is noted. IMPRESSION: Osteoarthritic changes without significant progression. No new abnormality. Reviewed, Interpreted and Dictated by Zurdo Arita MD Transcribed by Bessie Chavez Authenticated and [facility]
[2024-05-27 13:08] LABS: Erythrocyte Sedimentation Rate 32 mm/hr (0-30)
[2024-05-27 13:32] LABS: C-Reactive Protein 6.1 mg/L (0-4)
[2024-05-27 19:15] LABS: Barbiturates Screen,Urine Negative ng/ml (<200); Benzodiazepines Screen,Urine Negative ng/ml (<200)
[2024-05-27 19:16] LABS: Amphetamine/Metha Screen,Urine Negative ng/ml (<1000)
[2024-05-27 19:17] LABS: Cannabinoid Screen,Urine Negative ng/ml (<50); Methadone Screen,Urine Negative ng/ml (<300)
[2024-05-27 19:18] LABS: Cocaine Screen,Urine Negative ng/ml (<300)
[2024-05-27 19:19] LABS: Opiate Screen,Urine Negative ng/ml (<300); Phencyclidine Screen,Urine Negative ng/ml (<25)
[2024-05-28 08:14] LABS: RA Latex Turbid. <10.0 IU/mL (<14.0)
[2024-05-28 17:41] LABS: Anti-Cyclic Citrullinated Pept 4 units (0-19)
[2024-05-30 12:08] LABS: Anti-Centromere B Antibodies <0.2 AI (0.0-0.9); Anti-DNA (DS) Ab Qn <1 IU/mL (0-9); Anti-Jo-1 <0.2 AI (0.0-0.9); Anti-Smith Antibody <0.2 AI (0.0-0.9); Antichromatin Antibodies 0.2 AI (0.0-0.9); Antiscleroderma-70 Antibodies <0.2 AI (0.0-0.9); Lupus Reflex Interpretation Comment: (.); PTT-LA 35.5 sec (0.0-43.5); RNP Antibodies <0.2 AI (0.0-0.9); Sjogren's Anti-SS-A <0.2 AI (0.0-0.9); Sjogren's Anti-SS-B <0.2 AI (0.0-0.9); dRVVT 35.9 sec (0.0-47.0)
[2024-06-07 17:29] LABS: Gabapentin,Urine 63.7 ug/mL (.)
== END 2024-05-27 23:59 | disposition home or self-care (01) ==
LOC: LAB 11:28
PROVIDERS: PCP Nurse Practitioner Family; Visit Provider Family Medicine
DX: Z51.81 Encounter for therapeutic drug level monitoring (principal); Z79.899 Other long term (current) drug therapy; R53.1 Weakness; R20.0 Anesthesia of skin; R20.2 Paresthesia of skin; M54.2 Cervicalgia; R29.898 Other symptoms and signs involving the musculoskeletal system; M79.641 Pain in right hand; M79.642 Pain in left hand
CPT/HCPCS: 36415; 72040; 73130; 80307; 85613; 85651; 86140; 86200; 86225; 86235; 86431

== ENCOUNTER 2024-08-01 12:57 | Outpatient (POV) | payer OTHER, SELFPAY ==
[2024-08-01 13:03] VITALS: BP 125/77; PULSE 88; RESP 16; O2SAT 97; BMI 28.5
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
== END 2024-08-01 23:59 | disposition home or self-care (01) ==
PROVIDERS: PCP Family Medicine; Visit Provider Nurse Practitioner Family
DX: M50.10 Cervical disc disorder with radiculopathy, unspecified cervical region (principal); M25.521 Pain in right elbow; R20.0 Anesthesia of skin; R20.2 Paresthesia of skin; R29.898 Other symptoms and signs involving the musculoskeletal system; F17.210 Nicotine dependence, cigarettes, uncomplicated; Z79.899 Other long term (current) drug therapy
CPT/HCPCS: 99202; G0463

== ENCOUNTER 2024-08-09 15:47 | Outpatient (CLI) | payer OTHER, SELFPAY ==
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
== END 2024-08-09 23:59 | disposition home or self-care (01) ==
LOC: RAD 15:48
PROVIDERS: PCP Family Medicine; Visit Provider Family Medicine
DX: M25.521 Pain in right elbow (principal); M79.2 Neuralgia and neuritis, unspecified
CPT/HCPCS: 73221

== ENCOUNTER 2024-08-15 14:54 | Outpatient (POV) | payer OTHER, SELFPAY ==
[2024-08-15 15:41] VITALS: BP 110/62; PULSE 81; RESP 18; O2SAT 97; BMI 29.5
--- NOTE | 2024-08-15 15:55 | A.OFFVIS_ITS ---
[facility] Disclaimer: The information contained in this section may have been updated after the patient was seen, as this information can be updated by other users. Medical History (Updated 08/12/24 @ 11:00 by Génesis Thomas RN) Bone spur HLD (hyperlipidemia) Daytime hypersomnia Loud snoring Mild persistent asthma Implantable loop recorder present Allergic rhinitis Dyspnea on exertion Stopped smoking with greater than 20 pack year history Asthma Multiple lung nodules on CT Other ill-defined heart diseases Pulmonary nodules Elevated left ventricular end-diastolic pressure (LVEDP) Dyspnea Dizziness Abnormal EKG Obesity Chest pain Vitamin D deficiency Abdominal pain Surgical History History of colonoscopy History of left breast biopsy History of hysterectomy for cancer Family History Other Family history of cancer Social History Smoking Status: Current some day smoker tobacco type: cigarettes packs per day: 1 alcohol intake: never substance use type: denies use current occupational status: other Travel in the last 8 weeks: None household members: none housing: [facility] 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 Today she rates her pain a 8 out of 10. She denies any new trauma or injury. She states she is still having the sharp sensations and around her right lateral elbow and does state that she is even having more symptoms going into her lower forearm and some her thumb. Patient states that the pain is constant and is interfering with her ability perform activities of daily living such as cooking and cleaning. Patient does state that the compounded cream a muscle relaxer did help some. She states that she is scheduled for eye surgery and that in the past she was told that her cataracts was related to chronic steroid use. Patient states that she is interested in proceeding forward with the injection. Her Roque has been reviewed and is appropriate Review of Systems: General: No recent weight changes, no fever, no sleep disturbances Respiratory: No cough, no shortness of air, no recurring pulmonary infections Cardiovascular/peripheral vascular: No chest pain, no palpitations, no edema, no shortness of breath Gastrointestinal: No new onset incontinence, normal bowel movements reported Genitourinary: No new onset incontinence Musculoskeletal: Right elbow pain Psychiatric: [Normal mood/affect] Neurological: [Denies weakness in extremities], [denies balance issues] Pain at rest (0-10 scale): 8 Objective Objective:: Physical Exam: General: Alert and oriented x3, no acute distress, pleasant and cooperative Lungs: Respirations even and unlabored, symmetrical chest expansion Eyes: PERRL Musculoskeletal: Flexion and extension of right elbow somewhat guarded secondary to pain, [antalgic gait noted] Neurological: Speech clear, no gross sensory deficit Has patient had previous pain injection?: No Conservative treatment options previously tried: Home exercise plan Length of treatment: Longer than 12 Meds Home Medications and Allergies Home Medications ?Medication ?Instructions ?Recorded ?Confirmed ?Type lidocaine 5 % topical patch 1 patch topical DAILY PRN pain #30 05/05/23 08/15/24 Rx ea buspirone 5 mg tablet 5 mg PO DAILY anxiety #60 tabs 05/13/23 08/15/24 Rx anastrozole 1 mg tablet 1 mg PO DAILY 06/30/23 08/15/24 History montelukast 10 mg tablet See Rx Instructions .Route 08/03/23 08/15/24 Rx .COMPLEX #30 tabs duloxetine 60 mg capsule,delayed See Rx Instructions .Route 08/25/23 08/15/24 Rx release .COMPLEX #30 caps furosemide 20 mg tablet See Rx Instructions .Route 09/23/23 08/15/24 Rx .COMPLEX #90 tabs loratadine 10 mg tablet See Rx Instructions .Route 09/23/23 08/15/24 Rx .COMPLEX #90 tabs letrozole 2.5 mg tablet 2.5 mg PO DAILY 10/20/23 08/15/24 History fluticasone propionate 50 See Rx Instructions .Route 01/12/24 08/15/24 Rx mcg/actuation nasal .COMPLEX #16 grams spray,suspension celecoxib 200 mg capsule See Rx Instructions .Route 02/23/24 08/15/24 Rx .COMPLEX #60 caps ergocalciferol (vitamin D2) 1,250 See Rx Instructions .Route 02/23/24 08/15/24 Rx mcg (50,000 unit) capsule .COMPLEX #7 caps albuterol sulfate 90 mcg/actuation See Rx Instructions .Route 03/22/24 08/15/24 Rx aerosol inhaler .COMPLEX #18 grams levothyroxine 50 mcg tablet See Rx Instructions .Route 03/22/24 08/15/24 Rx .COMPLEX #90 tabs gabapentin 600 mg tablet 600 mg PO TID #90 tabs 05/27/24 08/15/24 Rx zolpidem 5 mg tablet 5 mg PO HS #30 tabs 05/27/24 08/15/24 Rx bupropion HCl 75 mg tablet See Rx Instructions .Route 07/07/24 08/15/24 Rx .COMPLEX #60 tabs spironolactone 25 mg tablet See Rx Instructions .Route 07/07/24 08/15/24 Rx .COMPLEX #90 tabs baclofen 5 mg tablet 5 mg PO TID #42 tabs 08/01/24 08/15/24 Rx cholecalciferol (vitamin D3) 125 See Rx Instructions .Route 08/04/24 08/15/24 Rx mcg (5,000 unit) capsule .COMPLEX #90 caps cyclobenzaprine 10 mg tablet See Rx Instructions .Route 08/04/24 08/15/24 Rx .COMPLEX #60 tabs New Prescriptions to Start Prescriptions: Allergies Allergy/AdvReac Type Severity Reaction Status Date / Time codeine (CODEINE) Allergy Unknown Verified 05/27/24 09:43 Assessment and Plan *Assessment and plan (1) Right elbow pain: Status: Acute Category: Medical Code(s): M25.521 - Pain in right elbow Plan Patient did have a recent MRI of her right elbow that did show degenerative changes with bone spurs and loose bodies. Patient was reviewed over and she did state that she was scheduled to go see orthopedics however she has not heard anything from them. She states that she was given a number to call as well. I did review over with the patient from our last visit that I do still believe she would benefit from a right epicondyle injection. Risk and benefits were discussed with patient and she would like to proceed forward with this plan of care. 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 Patient will be scheduled for this injection but was counseled that she can call and reschedule or cancel if needed if there are issues. Patient acknowledges understanding agrees with plan of care. Patient has been instructed to contact the clinic with any concerns before the next appointment. Dr. Forbes has reviewed this note and agrees with this plan of care. This note was dictated using voice recognition software and make contain errors or omissions. All injections are used with Lidocaine, Bupivacaine and Depo Medrol. Occasionally urine drug screen is needed to verify patient's compliance with our office pain contract. This is ordered based off specific treatments related to chronic pain with the potential to abuse certain medications.
== END 2024-08-15 23:59 | disposition home or self-care (01) ==
LOC: SC.PAIN 14:55
PROVIDERS: PCP Family Medicine; Visit Provider Nurse Practitioner Family
DX: M25.521 Pain in right elbow (principal); Z73.89 Other problems related to life management difficulty; Z79.899 Other long term (current) drug therapy
CPT/HCPCS: 99212; G0463

== ENCOUNTER 2024-08-19 16:17 | Outpatient (CLI) | payer OTHER, SELFPAY ==
--- NOTE | 2024-08-19 16:17 | MM_ITS ---
PROCEDURE INFORMATION: Exam: MG Bilateral Screening 3D Mammography Exam date and time: 08/19/2024 4:22 PM Age: 59 years old Clinical indication: Screening examination. History of left breast cancer treated in 2002. TECHNIQUE: Imaging protocol: Bilateral Screening tomosynthesis and 2D mammography including computer-aided detection (CAD) when performed. COMPARISON: 1. MG MM DIG SCREENING MAMM BI W/CAD 03/31/2023 2:15 PM 2. MG MM DIG MAMM DX UNILAT LT CAD 08/06/2022 1:56 PM FINDINGS: MAMMOGRAPHY: Breast composition: The breasts are heterogeneously dense, which may obscure small masses. Mass: A skin marker was placed over an area of palpable concern in the left approximate 3 o'clock axis. This corresponds to a partially circumscribed somewhat ovoid mass measuring 3.1 x 2.5 cm in dimension. It is inferior to surgical clips from prior left breast lumpectomy. Architectural distortion: None. Calcifications: No suspicious calcifications. Asymmetric density: None. Skin thickening: None. Axillary adenopathy: None. IMPRESSION: Patient to be recalled for spot compression views of the left breast in the CC and MLO projections, a full 90 degree lateral view, and left breast ultrasound for further evaluation of a suspicious left breast mass. ASSESSMENT: BI-RADS Category 0: Incomplete- Need Additional Imaging Evaluation
== END 2024-08-19 23:59 | disposition home or self-care (01) ==
PROVIDERS: PCP Family Medicine; Visit Provider Family Medicine
DX: Z12.31 Encounter for screening mammogram for malignant neoplasm of breast (principal)
CPT/HCPCS: 77063; 77067

== ENCOUNTER 2024-08-21 21:32 | Emergency (ER) | payer OTHER, SELFPAY ==
[2024-08-21 21:37] VITALS: BP 167/66; PULSE 94; RESP 18; TEMP 36.9; O2SAT 99; BMI 29.5
--- NOTE | 2024-08-21 21:45 | PC.NURSE ---
Report given to Penelope Barclay MD and elke TOBIAS. Pt placed on trade embalmer, BP, and pulse ox.
--- NOTE | 2024-08-21 22:56 | ED_ITS ---
Discharge Plan Disposition Patient Disposition: Home, Self-Care Prescriptions Prescriptions: New epinephrine [EpiPen 2-Sergio] 0.3 mg/0.3 mL auto-injector 0.3 mg IM Q10M PRN (Reason: anaphylaxis) Qty: 2 0RF Rx Instructions: for 2 doses No Action letrozole 2.5 mg tablet 2.5 mg PO DAILY gabapentin 600 mg tablet 600 mg PO TID Qty: 90 2RF zolpidem 5 mg tablet 5 mg PO HS Qty: 30 2RF buspirone 5 mg tablet 5 mg PO DAILY Qty: 60 2RF anastrozole 1 mg tablet 1 mg PO DAILY montelukast 10 mg tablet See Rx Instructions .ROUTE .COMPLEX Qty: 30 0RF Dose Instruction: TAKE ONE TABLET BY MOUTH AT BEDTIME FOR ASTHMA Rx Instructions: TAKE ONE TABLET BY MOUTH AT BEDTIME FOR ASTHMA duloxetine 60 mg capsule,delayed release(DR/EC) See Rx Instructions .ROUTE .COMPLEX Qty: 30 0RF Dose Instruction: TAKE ONE CAPSULE BY MOUTH ONCE A DAY FOR DEPRESSION Rx Instructions: TAKE ONE CAPSULE BY MOUTH ONCE A DAY FOR DEPRESSION furosemide 20 mg tablet See Rx Instructions .ROUTE .COMPLEX Qty: 90 2RF Dose Instruction: TAKE ONE TABLET BY MOUTH ONCE A DAY Rx Instructions: TAKE ONE TABLET BY MOUTH ONCE A DAY loratadine 10 mg tablet See Rx Instructions .ROUTE .COMPLEX Qty: 90 2RF Dose Instruction: TAKE ONE TABLET BY MOUTH ONCE A DAY NEEDED FOR ALLERGY SYMPTOMS Rx Instructions: TAKE ONE TABLET BY MOUTH ONCE A DAY NEEDED FOR ALLERGY SYMPTOMS fluticasone propionate 50 mcg/actuation spray,suspension See Rx Instructions .ROUTE .COMPLEX Qty: 16 3RF Dose Instruction: USE 1 SPRAY IN EACH NOSTRIL ONCE A DAY Rx Instructions: USE 1 SPRAY IN EACH NOSTRIL ONCE A DAY celecoxib 200 mg capsule See Rx Instructions .ROUTE .COMPLEX Qty: 60 3RF Dose Instruction: TAKE 2 CAPSULES BY MOUTH ONCE A DAY Rx Instructions: TAKE 2 CAPSULES BY MOUTH ONCE A DAY ergocalciferol (vitamin D2) 1,250 mcg (50,000 unit) capsule See Rx Instructions .ROUTE .COMPLEX Qty: 7 3RF Dose Instruction: TAKE ONE CAPSULE BY MOUTH EVERY WEEK FOR SUPPLEMENT Rx Instructions: TAKE ONE CAPSULE BY MOUTH EVERY WEEK FOR SUPPLEMENT levothyroxine 50 mcg tablet See Rx Instructions .ROUTE .COMPLEX Qty: 90 0RF Dose Instruction: TAKE ONE TABLET BY MOUTH ONCE A DAY Rx Instructions: TAKE ONE TABLET BY MOUTH ONCE A DAY albuterol sulfate 90 mcg/actuation HFA aerosol inhaler See Rx Instructions .ROUTE .COMPLEX Qty: 18 3RF Dose Instruction: INHALE 2 PUFFS BY MOUTH EVERY 6 HOURS NEEDED FOR SHORTNESS OF BREATH Rx Instructions: INHALE 2 PUFFS BY MOUTH EVERY 6 HOURS NEEDED FOR SHORTNESS OF BREATH spironolactone 25 mg tablet See Rx Instructions .ROUTE .COMPLEX Qty: 90 0RF Dose Instruction: TAKE ONE TABLET BY MOUTH ONCE A DAY FOR FLUID Rx Instructions: TAKE ONE TABLET BY MOUTH ONCE A DAY FOR FLUID bupropion HCl 75 mg tablet See Rx Instructions .ROUTE .COMPLEX Qty: 60 3RF Dose Instruction: TAKE ONE TABLET BY MOUTH 2 TIMES A DAY Rx Instructions: TAKE ONE TABLET BY MOUTH 2 TIMES A DAY cholecalciferol (vitamin D3) 125 mcg (5,000 unit) capsule See Rx Instructions .ROUTE .COMPLEX Qty: 90 0RF Dose Instruction: TAKE ONE CAPSULE BY MOUTH ONCE A DAY FOR SUPPLEMENT Rx Instructions: TAKE ONE CAPSULE BY MOUTH ONCE A DAY FOR SUPPLEMENT cyclobenzaprine 10 mg tablet See Rx Instructions .ROUTE .COMPLEX Qty: 60 0RF Dose Instruction: TAKE ONE TABLET BY MOUTH 3 TIMES A DAY NEEDED FOR MUSCLE SPASMS Rx Instructions: TAKE ONE TABLET BY MOUTH 3 TIMES A DAY NEEDED FOR MUSCLE SPASMS lidocaine 5 % adhesive patch,medicated 1 patch topical DAILY PRN (Reason: pain) Qty: 30 0RF Rx Instructions: leave on most painful area for up to 12 hrs baclofen 5 mg tablet 5 mg PO TID Qty: 42 0RF Referrals Follow up/Referrals: Génesis Aoyub APRN [Primary Care Provider] - See instructions Activity Restrictions/Add. Instructions Additional Instructions/Restrictions: As discussed I recommend that you follow-up with an survey research associate for a second opinion regarding what allergen you may be exposed to. Clinical Impressions Clinical Impression: Acute allergic reaction Print Language Print Language: Danish Discharge ED Provider: Penelope Barclay General Adult HPI General Chief complaint: Allergic Reaction Stated complaint: Allergic reaction body itches,lips turned blue Time Seen by Provider: 08/21/24 22:29 Mode of Arrival: Ambulatory Source of Information: Patient Description of Symptoms (Recalled from ER Triage Doc. by RN): Pt states she is unsure what she is having an allergic reaction to. Pt states 1 hour ago she started to feel itchy from head to toe, blood red, wheezing. States her toenails and lips turned blue. Pt states she took a benadryl, and 2 doses of IM Epi. last dose of epi 30 minutes ago History of Present Illness HPI narrative: Patient is a 59-year-old presenting today with what she believes is a significant allergic reaction. Has been dealing with this for many years and has given herself epinephrine numerous times for similar events. She denies any mucosal swelling shortness of breath cardiovascular symptoms or gastrointestinal symptoms just diffuse erythematous and pruritic rash. She gave herself Benadryl and epinephrine at home prior to my evaluation and she is completely asymptomatic by the time that I evaluated the patient. States she has followed up with her odd piece checker in the past without any definitive diagnosis in the past. Related Data Home Medications ?Medication ?Instructions ?Recorded ?Confirmed anastrozole 1 mg tablet 1 mg PO DAILY 06/30/23 08/15/24 letrozole 2.5 mg tablet 2.5 mg PO DAILY 10/20/23 08/15/24 Previous Rx's ?Medication ?Instructions ?Recorded lidocaine 5 % topical patch 1 patch topical DAILY PRN pain #30 05/05/23 ea buspirone 5 mg tablet 5 mg PO DAILY anxiety #60 tabs 05/13/23 montelukast 10 mg tablet See Rx Instructions .Route 08/03/23 .COMPLEX #30 tabs duloxetine 60 mg capsule,delayed See Rx Instructions .Route 08/25/23 release .COMPLEX #30 caps furosemide 20 mg tablet See Rx Instructions .Route 09/23/23 .COMPLEX #90 tabs loratadine 10 mg tablet See Rx Instructions .Route 09/23/23 .COMPLEX #90 tabs fluticasone propionate 50 See Rx Instructions .Route 01/12/24 mcg/actuation nasal .COMPLEX #16 grams spray,suspension celecoxib 200 mg capsule See Rx Instructions .Route 02/23/24 .COMPLEX #60 caps ergocalciferol (vitamin D2) 1,250 See Rx Instructions .Route 02/23/24 mcg (50,000 unit) capsule .COMPLEX #7 caps albuterol sulfate 90 mcg/actuation See Rx Instructions .Route 03/22/24 aerosol inhaler .COMPLEX #18 grams levothyroxine 50 mcg tablet See Rx Instructions .Route 03/22/24 .COMPLEX #90 tabs gabapentin 600 mg tablet 600 mg PO TID #90 tabs 05/27/24 zolpidem 5 mg tablet 5 mg PO HS #30 tabs 05/27/24 bupropion HCl 75 mg tablet See Rx Instructions .Route 07/07/24 .COMPLEX #60 tabs spironolactone 25 mg tablet See Rx Instructions .Route 07/07/24 .COMPLEX #90 tabs baclofen 5 mg tablet 5 mg PO TID #42 tabs 08/01/24 cholecalciferol (vitamin D3) 125 See Rx Instructions .Route 08/04/24 mcg (5,000 unit) capsule .COMPLEX #90 caps cyclobenzaprine 10 mg tablet See Rx Instructions .Route 08/04/24 .COMPLEX #60 tabs epinephrine 0.3 mg/0.3 mL 0.3 mg (0.3 mL) IM Q10M PRN 08/21/24 injection, auto-injector (EpiPen anaphylaxis #2 ea 2-Sergio) Allergies Allergy/AdvReac Type Severity Reaction Status Date / Time codeine (CODEINE) Allergy Unknown Verified 05/27/24 09:43 [facility] Disclaimer: The information contained in this section may have been updated after the patient was seen, as this information can be updated by other users. Medical History (Updated 08/21/24 @ 22:53 by Penelope Barclay MD) Bone spur HLD (hyperlipidemia) Daytime hypersomnia Loud snoring Mild persistent asthma Implantable loop recorder present Allergic rhinitis Dyspnea on exertion Stopped smoking with greater than 20 pack year history Asthma Multiple lung nodules on CT Other ill-defined heart diseases Pulmonary nodules Elevated left ventricular end-diastolic pressure (LVEDP) Dyspnea Dizziness Abnormal EKG Obesity Chest pain Vitamin D deficiency Abdominal pain Surgical History History of colonoscopy History of left breast biopsy History of hysterectomy for cancer Family History Other Family history of cancer Social History Smoking Status: Current some day smoker tobacco type: cigarettes packs per day: 1 alcohol intake: never substance use type: denies use current occupational status: other Travel in the last 8 weeks: None household members: none housing: condominium 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 current occupational exposures/hazards: No caffeine: Yes Have you lived/traveled outside [place] in past 30 days?: No Contact w/someone who lives/traveled outside [place] past 30 days?: No Exposure to someone with infectious disease in past 14 days?: No Do you have a fever (greater than 100.4 F or 38 C)?: No Have you tested positive for COVID-19: No Exposed to someone with COVID-19 in past 14 days?: No Do you have a sore throat?: No Do you have a cough?: No Do you have any weakness?: No Do you have any diarrhea?: No Are you experiencing any unusual bleeding?: No Do you have any muscle aches/pain?: No Do you have any abdominal pain?: No Are you experiencing loss of taste or smell?: No Other Medical History Have you received the Flu Vaccine for this season: No Have you received the Pneumonia Vaccine: No ROS Obtained: Yes All systems reviewed & no additional complaints except as documented Physical Exam General General appearance: alert and in no apparent distress Respiratory Respiratory exam: Present normal lung sounds bilaterally; Absent respiratory dis tress Cardiovascular Cardiovascular exam: Present regular rate and normal rhythm Neurological Exam Neurological exam: Present alert and oriented X3 Medical Decision Making Medical Records Screening: Per USPSTF and CDC recommendations, given the prevalence of disease in our region, it is our hospital?s policy to screen for HIV and viral Hepatitis for all patients aged 18 and over and those with ongoing risk factors. Roque Inquiry Pt receiving controlled substance: No Vital Signs: 08/21/24 21:37 Temperature 98.4 F Temperature Source Oral Pulse Rate [Right] 94 H Respiratory Rate 18 Blood Pressure [Right Arm] 167/66 H Blood Pressure Mean [Right Arm] 99 Blood Pressure Source [Right Arm] Automatic Cuff Blood Pressure Position [Right Arm] Sitting 02 Sat by Pulse Oximetry 99 Oxygen Delivery Method Room Air Medical Decision Narrative: Asymptomatic 59-year-old who presents today with what sounds like a localized skin allergic reaction. She had no other organ system involvement to warrant a diagnosis of anaphylaxis. However she administered epinephrine to herself and was completely asymptomatic at the time of evaluate the patient. She is on antihistamine daily. No further indication from an emergency standpoint for observation etc. She has been advised to follow-up for a second opinion with another survey research associate. I refilled her EpiPen's and she was discharged in stable condition. Critical Care Critical Care Time Critical Care Time: No
[2024-08-21 23:18] VITALS: BP 117/87; PULSE 79; RESP 16; TEMP 36.7; O2SAT 99
== END 2024-08-21 23:20 | disposition home or self-care (01) ==
PROVIDERS: Emergency Provider Student in an Organized Health Care Education/Training Program; PCP Family Medicine
DX: T78.40XA Allergy, unspecified, initial encounter (principal)
CPT/HCPCS: 99283

== ENCOUNTER 2024-08-22 11:32 | Outpatient (CLI) | payer OTHER, SELFPAY ==
[2024-08-22 20:18] LABS: Chol/HDL Ratio 3.3 (1-3.5); Cholesterol 161 mg/dl (140-200); HDL Cholesterol 49 mg/dl (40-60); Triglycerides 111 mg/dl (30-150); VLDL Cholesterol 22 mg/dL (0-40)
[2024-08-22 20:29] LABS: Direct LDL Cholesterol 73.83 mg/dL (100-129)
[2024-08-22 20:41] LABS: Free Thyroxine Index 2.7 ug/dL (5.93-13.13); T4 (Thyroxine) 8.1 ug/dl (5.53-11.0); Triiodothryronine (T3) Uptake 33 % (23.5-40.5)
[2024-08-22 20:55] LABS: Thyroid Stimulating Hormone 1.72 uIU/mL (0.465-4.68)
== END 2024-08-22 23:59 | disposition home or self-care (01) ==
LOC: LAB.DROPOF 08-23 15:18
PROVIDERS: PCP Family Medicine; Visit Provider Family Medicine
DX: E78.5 Hyperlipidemia, unspecified (principal); R79.89 Other specified abnormal findings of blood chemistry
CPT/HCPCS: 80061; 84436; 84443; 84479

== ENCOUNTER 2024-08-24 07:54 | Outpatient (CLI) | payer OTHER, SELFPAY ==
--- NOTE | 2024-08-24 07:57 | XR_ITS ---
FINAL REPORT CLINICAL HISTORY: right elbow pain COMPARISON: 05/28/2023 FINDINGS: RIGHT ELBOW 3 views were obtained. There is no acute fracture or dislocation. There is no joint effusion. There are moderate to severe degenerative changes. Findings appear slightly worse from the prior exam. There is no soft tissue abnormality. IMPRESSION: Progressive degenerative changes. Reviewed, Interpreted and Dictated by Zurdo Arita MD Transcribed by Lyndsey Meneses Authenticated and [facility]
== END 2024-08-24 23:59 | disposition home or self-care (01) ==
LOC: RAD 07:55
PROVIDERS: PCP Family Medicine; Visit Provider Physician Assistant
DX: M25.521 Pain in right elbow (principal); M77.9 Enthesopathy, unspecified
CPT/HCPCS: 73080

== ENCOUNTER 2024-09-01 14:48 | Outpatient (CLI) | payer OTHER, SELFPAY ==
--- NOTE | 2024-09-01 15:15 | MM_ITS ---
PROCEDURE INFORMATION: Exam: US Left Breast, Complete MG Left Diagnostic Breast Tomosynthesis Exam date and time: 09/01/2024 2:50 PM Age: 59 years old Clinical indication: Personal history left breast cancer and left lumpectomy. Mass in the left breast on screening mammogram, for further evaluation. TECHNIQUE: Imaging protocol: Complete ultrasound of all four quadrants of the left breast and the retroareolar regions, including ultrasound of the axilla when performed. Left Diagnostic tomosynthesis and 2D mammography including computer-aided detection (CAD) when performed. Unilateral or bilateral exam. COMPARISON: 1. MG MM DIG SCREENING MAMM BI W/CAD 08/19/2024 4:22 PM 2. MG MM DIG SCREENING MAMM BI W/CAD 03/31/2023 2:15 PM FINDINGS: MAMMOGRAPHY: Breast composition: There are scattered areas of fibroglandular density. Breast mammogram findings: At the palpable area of concern in the left breast, there is a rounded lobulated slightly irregular hyperdense mass located inferior to the lumpectomy clips, measuring 2.9 cm. ULTRASOUND: Breast ultrasound findings: Ultrasound the left breast at the 3 o'clock axis, 8 cm from the nipple demonstrates an irregular hypoechoic indistinct mass measuring 4.0 x 2.9 x 3.0 cm at 3 o'clock, 8 cm from the nipple. This correlates to the mammogram finding at the palpable area concern. In the left breast 2 o'clock axis, 7 cm from the nipple, there is mild duct ectasia with cystic change measuring 0.8 x 0.4 x 0.9 cm. In the left axilla, there is a lymph node with slightly thickened cortex, measuring 0.4 cm in total cortical thickness. IMPRESSION: 1. Mass in the left breast, located inferior to the lumpectomy scar, is suspicious. Ultrasound-guided needle biopsy is recommended. 2. Questionable left axillary lymph node. Further management can be on an expectant basis, per the Cancer Care team, following biopsy of the left breast mass. ASSESSMENT: BI-RADS Category 4: Suspicious.
== END 2024-09-01 23:59 | disposition home or self-care (01) ==
LOC: RAD 14:48
PROVIDERS: PCP Family Medicine; Visit Provider Family Medicine
DX: N63.21 Unspecified lump in the left breast, upper outer quadrant (principal)
CPT/HCPCS: 76641; 77061; 77065; G0279

== ENCOUNTER 2025-03-14 08:45 | Day surgery (SDC) | payer OTHER, SELFPAY ==
[2025-03-14 08:48] VITALS: BMI 26.3
[2025-03-14] MEDS: LIDOCAINE 2% W/EPI 1:100,000 20ML VIAL 20 ML SUBCUT (09:19)
--- NOTE | 2025-03-14 09:56 | P.PCN_ITS ---
[facility] Loop Recorder Date: 03/14/25 Time: 09:57 Procedure Performed:: Removal of loop recorder Indication:: Battery at [facility] Technique:: Patient was brought to the cardiac Vet Tech as an outpatient. After informed consent was obtained, patient was prepped and draped in a sterile fashion and 1% lidocaine was used to anesthetize the area over the existing loop recorder. After anesthetizing the area, scalpel was used to dissect down to the device and forceps used for removal. Patient tolerated the procedure without complications. The site was closed using a combination of surgical glue, cl osure device with pressure dressing on top of it. Impression:: Successful removal of loop recorder Serial Number:: Not recorded Plan:: Routine postop care
== END 2025-03-14 10:05 | disposition home or self-care (01) ==
LOC: CATHLAB 08:46
PROVIDERS: PCP Family Medicine; Visit Provider Internal Medicine
DX: Z45.09 Encounter for adjustment and management of other cardiac device (principal); R94.31 Abnormal electrocardiogram [ECG] [EKG]; C50.919 Malignant neoplasm of unspecified site of unspecified female breast; I51.89 Other ill-defined heart diseases; J45.30 Mild persistent asthma, uncomplicated; E78.49 Other hyperlipidemia; E66.01 Morbid (severe) obesity due to excess calories; Z68.41 Body mass index [BMI] 40.0-44.9, adult; E55.9 Vitamin D deficiency, unspecified; Z87.891 Personal history of nicotine dependence; Z79.1 Long term (current) use of non-steroidal anti-inflammatories (NSAID); Z79.890 Hormone replacement therapy; Z79.51 Long term (current) use of inhaled steroids; Z79.899 Other long term (current) drug therapy; Z88.5 Allergy status to narcotic agent
CPT/HCPCS: 33286; J0690; J2004